=== PATIENT | female | born 1950 | race Caucasian/White ===

== ENCOUNTER → 2018-02-16 09:40 | Outpatient (CLI) | payer MEDICARE, OTHER, SELFPAY ==
--- NOTE | 2018-02-16 | DI.US.S_ITS ---
PROCEDURE: US ABDOMEN COMPLETE INDICATIONS: LIVER FUNCTION TESTS ABNORMAL TECHNIQUE: Real-time scanning was performed of the abdominal and retroperitoneal organs, with image documentation. COMPARISON: [facility], CT, CT KUB, 08/01/2017, 8:55. FINDINGS: Liver: Liver is normal in size and homogeneous in echotexture. Gallbladder: Gallbladder has been removed. Biliary ducts: Intrahepatic bile ducts are non-dilated. Extrahepatic bile duct caliber measures 15 mm. Normal is 6-7 mm or less in diameter, or 10 mm or less post-cholecystectomy. Pancreas: Visualized portions of the pancreas are sonographically normal. Spleen: Spleen is normal in size and homogeneous in echotexture. Kidneys: Kidneys are normal in size and echotexture. Right kidney measures 10.9 cm long; left kidney measures 9.7 cm long. No hydronephrosis or nephrolithiasis. No solid masses. Aorta: Visualized aorta is normal in caliber at less than 3 cm. Iliacs: Proximal common iliac arteries are normal in caliber at less than 2.5 cm. IVC: Intrahepatic inferior vena cava is patent. Miscellaneous: No free abdominal fluid. IMPRESSION: 1. Prominent common bile duct as above. This could be related to post cholecystectomy sequela and is unchanged compared to prior exam. Dictated by: Veronica Elder M.D. on 02/16/2018 at 13:55 Approved by: Veronica Elder M.D. on 02/16/2018 at 14:08
== END ==
PROVIDERS: PCP Family Medicine; Visit Provider Family Medicine
DX: R94.5 Abnormal results of liver function studies (principal); Z90.49 Acquired absence of other specified parts of digestive tract
CPT/HCPCS: 76700

== ENCOUNTER → 2018-10-12 10:57 | Outpatient (CLI) | payer OTHER, SELFPAY ==
--- NOTE | 2018-10-12 | DI.CT.S_ITS ---
PROCEDURE: CT ABDOMEN PELVIS W CON INDICATIONS: EARLY SATIETY, NIGHT SWEATS, LOSS OF WEIGHT TECHNIQUE: After the administration of oral and intravenous contrast, 5 mm thick sections acquired from the diaphragms to the symphysis. 5 mm thick coronal and sagittal reformats were performed. For radiation dose reduction, the following was used: automated exposure control, adjustment of mA and/or kV according to patient size. COMPARISON: [facility], US, US ABDOMEN COMPLETE, 02/16/2018, 10:07. [facility], CT, KIDNEY/ URETER/BLADDER, 07/21/2017, 18:36. FINDINGS: Image quality: Excellent. ABDOMEN: Lung bases: There is mild scarring and atelectasis in the lung bases. Heart size is normal. Solid organs: Evaluation of liver demonstrates no focal hepatic lesions. The gallbladder is surgically absent. There is intra-and extrahepatic biliary ductal dilatation, with the common bile duct measuring up to approximately 1.4 cm in diameter. This is similar in size compared to the prior study. No calcified obstructing stone or discrete mass visualized. There is mild dilatation of the pancreatic duct in the uncinate process measuring up to 5 mm adjacent to the ampulla. Within the body of the pancreas, the pancreatic duct measures up to 3 mm. The findings are also similar to the prior study given differences in technique. No discrete pancreatic mass identified. No peripancreatic fat stranding or fluid collections. Spleen is normal in size and enhancement. No adrenal nodules. Kidneys demonstrate no hydronephrosis. There is a small nonsegmental stone within the inferior pole the left kidney measuring up to 3 mm. Peritoneum and bowel: There is mild segmental wall thickening involving scattered small bowel loops most prominent in the ileum distally. There is a short segment intussusception in the jejunum within the left mid abdomen with associated mild distention of the preceding segment, measuring up to 3.8 cm. More proximal segments including the duodenum and stomach are normal in caliber. The appendix is normal in appearance. There is also mild segmental wall thickening involving a few colonic loops although this may reflect nondistention. No free fluid or air. Nodes and vessels: No retroperitoneal or mesenteric adenopathy. Aorta and inferior vena cava are normal in caliber. Miscellaneous: No ventral hernias. PELVIS: Genitourinary: The urinary bladder is nondistended. Miscellaneous: No inguinal hernias or adenopathy. Bones: No suspicious bony lesions. No vertebral body compression fractures. IMPRESSION: 1. Segmental small bowel wall thickening involving a few loops of small bowel compatible with a nonspecific enteritis, likely infectious or inflammatory. 2. Short segment intussusception of the jejunum in the left mid abdomen with mild associated preceding short segment small bowel distention. However, more proximal loops of bowel and stomach are normal in caliber. The findings suggest a likely mild partial obstruction. 3. Mild segmental colonic wall thickening also suggestive of a mild colitis versus artifact from nondistention. 4. Biliary and mild pancreatic duct dilatation redemonstrated, similar in appearance to the prior CT. The findings may represent sequelae of prior cholecystectomy or possible ampullary stenosis. Recommend correlation with laboratory values. No discrete mass lesion or calcified stone identified. 5. Small nonobstructing left renal stone. Dictated by: Maryk Gomez M.D. on 10/12/2018 at 14:18 Approved by: Marky Gomez M.D. on 10/12/2018 at 14:28
[2018-10-12 11:43] LABS: Blood Urea Nitrogen 18 mg/dL (7-17); Calcium 9.5 mg/dL (8.4-10.2); Carbon Dioxide 30 mmol/L (22-32); Chloride 107 mmol/L (98-107); Estimated Glomerular Filt Rate 54.8 mL/min (>60); Glucose 99 mg/dL (80-110); HEMOLYSIS < 15 (0-50); Potassium 4.4 mmol/L (3.4-5.1); Sodium 143 mmol/L (137-145)
== END ==
PROVIDERS: PCP Family Medicine; Visit Provider Family Medicine
DX: R61 Generalized hyperhidrosis (principal); R68.81 Early satiety; E11.9 Type 2 diabetes mellitus without complications; K83.8 Other specified diseases of biliary tract; K86.89 Other specified diseases of pancreas; N20.0 Calculus of kidney; R63.4 Abnormal weight loss; Z90.49 Acquired absence of other specified parts of digestive tract
CPT/HCPCS: 36415; 74177; 80048; Q9967

== ENCOUNTER 2018-10-12 18:45 | Emergency (ER) | payer OTHER, SELFPAY ==
[2018-10-12 18:50] VITALS: BP 117/65; PULSE 90; RESP 18; TEMP 36.7; O2SAT 98
--- NOTE | 2018-10-12 19:11 | ED.ABDPAIN ---
HPI - Abdominal Pain General Chief Complaint: Abdominal Pain Stated Complaint: abnormal CT scan, told to see ER Time Seen by Provider: 10/12/18 19:05 Source: patient, family () and old records reviewed Mode of arrival: ambulatory Limitations: no limitations History of Present Illness HPI narrative: This is a 68-year-old female who comes to the emergency department with complaint of abdominal pain. Patient states she has had symptoms for several months. She also gets nausea quite frankly but does not get vomiting. She also has constipation chronically but takes a stool softener which resolved that issue. She states suspects the constipation is secondary to her narcotic pain medication that she takes for chronic back pain. Patient states that she gets night sweats regularly almost every single night this along with slow weight loss prompted her physician order CT of her abdomen which was done today. She was contacted with the results and told to come to the emergency department. Patient has not had fevers otherwise. She has not had any other new major changes. She does have a history significant for cervical back surgery, a neurostimulator which she states has been taken out replaced several times, hysterectomy, cholecystectomy, dilation or clean out of her bile duct, breast implants, and a gastric bypass about 20 years ago. Patient denies any urinary symptoms. She states that she is in pain but it is her typical abdominal pain. Related Data Home Medications Medication Instructions Recorded Confirmed CHOLECALCIFEROL (VITAMIN D3) PO QDAY #0 06/22/16 08/01/18 (VITAMIN D) aspirin 81 mg PO QDAY #0 06/22/16 08/01/18 topiramate [Topamax] 100 mg PO BID #0 06/22/16 08/01/18 [OMEGA KRILL FISH OIL] PO BID #0 04/05/17 08/01/18 biotin 10,000 PO QPM #0 04/05/17 08/01/18 levothyroxine 0.137 mg PO QAM #0 04/05/17 08/01/18 morphine 1 tab PO TID #0 04/05/17 08/01/18 naloxegol [Movantik] 25 mg PO QDAY #0 04/05/17 08/01/18 oxycodone-acetaminophen [Endocet] 2 tab PO Q6HP PRN #0 04/05/17 08/01/18 [VIVISCAL EXTRA STR.] 1 tab PO QDAY #0 09/08/17 08/01/18 meclizine 25 mg PO TID #0 09/08/17 08/01/18 tizanidine 4 mg capsule 4 mg PO TID PRN 04/30/18 08/01/18 quinine 324 mg capsule 324 mg PO BEDTIME 10/02/18 Previous Rx's Medication Instructions Recorded conjugated estrogens 0.625 mg/gram See Label Instructions VAG 02/15/18 vaginal cream .COMPLEX #30 gram duloxetine 30 mg capsule,delayed 30 mg PO QDAY #90 cap 10/02/18 release duloxetine 60 mg capsule,delayed 60 mg PO QDAY #90 cap 10/02/18 release hydroxyzine pamoate 25 mg capsule 25 mg PO QID PRN 90 Days #90 cap 10/02/18 methylphenidate 10 mg tablet 10 mg PO DAILY #30 tab 10/02/18 methylphenidate ER 18 mg 18 mg PO QAM #30 tab 10/02/18 tablet,extended release 24 hr trazodone 50 mg tablet 100 mg PO HS #180 tab 10/02/18 Allergies Allergy/AdvReac Type Severity Reaction Status Date / Time meperidine [From DEMEROL] Allergy Severe BREATHING Verified 07/02/18 11:00 COMPLICATIONS Penicillins [PENICILLINS] Allergy Intermediate RASH Verified 07/02/18 11:00 Review of Systems Review of Systems ROS Unobtainable: All systems reviewed & are unremarkable except as noted in HPI and below Constitutional Denies chills, Denies fever(s), Denies lethargy, Reports night sweats, Denies weakness and Reports weight loss Cardiovascular Denies chest pain, Denies irregular heart rhythm, Denies lightheadedness, Denies palpitations, Denies dyspnea, Denies dyspnea on exertion and Denies orthopnea Respiratory Denies cough, Denies dyspnea, Denies dyspnea on exertion and Denies wheezing Gastrointestinal Gastrointestinal: Reports abdominal pain, Denies melena, Denies hematochezia, Denies change in bowel habits, Reports constipation, Denies diarrhea, Reports nausea and Denies vomiting Genitourinary Denies hematuria, Denies dysuria, Denies flank pain, Denies urinary incontinence and Denies urinary urgency Musculoskeletal Reports back pain (chronic, no new changes) Neurologic Denies weakness Endocrine Denies palpitations Allergic/Immunologic Denies wheezing [facility] Medical History Injury of common bile duct during operative procedure (Resolved) Migraines (Acute) Chronic back pain (Chronic) Hypothyroid (Chronic) Surgical History H/O abdominoplasty (Resolved) H/O bilateral breast implants (Resolved) History of Ykm-en-Y gastric bypass (Resolved) History of cholecystectomy (Resolved) History of tonsillectomy (Resolved) S/P SELMA-BSO (Resolved) Social History Smoking Status: Former smoker Exam Narrative Exam Narrative: GENERAL: Alert and oriented x three, pale, well-nourished, well-appearing female in mild distress. HEENT: Head normocephalic, atraumatic, EOMI, pupils reactive, face symmetric, moist mucous membranes NECK: Supple, full range of motion CARDIOVASCULAR: Regular rate and rhythm without murmurs, rubs or gallops. RESPIRATORY: Breath sounds equal bilaterally, no wheezes rales or rhonchi. ABDOMEN: Soft, mild generalized tenderness. Normoactive bowel sounds all 4 quadrants. No guarding or rebound, rigidity, no mass : No CVA tenderness EXTREMITIES: Normal range of motion, no clubbing or edema. Neurovascularly intact NEUROLOGICAL: Cranial nerves II through XII grossly intact. Moving all extremities SKIN: Warm, dry, no petechiae, no rashes or lesions. Initial Vital Signs Initial Vital Signs: Vital Signs Temperature 98.1 F 10/12/18 18:50 Pulse Rate 90 10/12/18 18:50 Respiratory Rate 18 10/12/18 18:50 Blood Pressure 117/65 10/12/18 18:50 Pulse Oximetry 98 10/12/18 18:50 Course Orders Ordered: ED Orders 10/12/18 19:35 Complete Blood Count AUTO DIFF Stat Comprehensive Metabolic Panel Stat Lipase Stat Procalcitonin Stat 10/12/18 20:38 XR abdomen 1V Stat Discontinued Medications Sodium Chloride (Normal Saline 0.9%) 1,000 mls @ 1,000 mls/hr IV BOLUS ONE Stop: 10/12/18 20:09 Last Infusion: 10/12/18 20:41 Dose: 0 mls/hr Admin: 10/12/18 19:43 Dose: 1,000 mls/hr Vital Signs - 8 hr 10/12/18 18:50 10/12/18 21:17 Temperature 98.1 F 98.4 F Pulse Rate 90 70 Respiratory Rate 18 14 Blood Pressure 117/65 Blood Pressure [Left Arm] 98/66 Pulse Oximetry 98 99 MDM - Abdominal Pain Lab Data Attestation: I reviewed the patient's lab results. Result diagrams: 10/12/18 19:35 10/12/18 19:35 Lab Results 10/12/18 10/12/18 10/12/18 Range/Units 19:35 19:35 19:35 WBC 5.6 (4.5-11.0) X10^3/uL RBC 3.51 L (4.0-5.2) X10^6/uL Hgb 12.0 (12.0-16.0) g/dL Hct 36.3 (36-46) % MCV 103.4 H (80-100) fL MCH 34.3 H (26-34) PG MCHC 33.1 (30-36) % RDW 14.1 (11.6-14.8) % Plt Count 224 (150-400) X10^3/uL Neut % (Auto) 58.8 (50-75) % Lymph % (Auto) 26.0 (25-40) % [place] % (Auto) 11.6 (3-14) % Eos % (Auto) 1.6 L (2-4) % Baso % (Auto) 2.0 (0-2) % Neut # (Auto) 3300 (8698-2500) /uL Lymph # (Auto) 1400 (1746-3449) /uL [place] # (Auto) 600 (0-900) /uL Eos # (Auto) 100 (0-450) /uL Baso # (Auto) 100 (0-100) /uL Sodium 141 (137-145) mmol/L Potassium 3.6 (3.4-5.1) mmol/L Chloride 109 H (98-107) mmol/L Carbon Dioxide 24 (22-32) mmol/L BUN 16 (7-17) mg/dL Creatinine 1.00 (0.52-1.04) mg/dL Estimated GFR 54.8 L (>60) mL/min BUN/Creatinine Ratio 16.0 (6-22) Glucose 84 (80-110) mg/dL Calcium 9.1 (8.4-10.2) mg/dL Total Bilirubin 0.2 (0.2-1.3) mg/dL AST 24 (14-36) IU/L ALT 41 (9-52) IU/L Alkaline Phosphatase 81 (38-126) U/L Total Protein 5.9 L (6.3-8.2) g/dL Albumin 3.6 (3.5-5.0) g/dL Globulin 2.3 (1.7-4.1) g/dL Albumin/Globulin Ratio 1.6 (1.0-2.8) Lipase 141 (23-300) U/L Procalcitonin < 0.05 (<0.5) ng/mL Imaging Data CT scan - abdomen: Radiologist's impression: [address] [id number] [address] Scan Report Signed Patient: Ying Quintana EMR#: [id number] : 8Acct:[id number] Age/Sex: 68 / FDate of Service: 10/12/18 Loc: CT Accession Number: [id number] Procedure: CT abdomen pelvis w con Ordering Provider: Shaina Boyd D.O. PROCEDURE: CT ABDOMEN PELVIS W CON INDICATIONS: EARLY SATIETY, NIGHT SWEATS, LOSS OF WEIGHT TECHNIQUE: After the administration of oral and intravenous contrast, 5 mm thick sections acquired from the diaphragms to the symphysis. 5 mm thick coronal and sagittal reformats were performed. For radiation dose reduction, the following was used: automated exposure control, adjustment of mA and/or kV according to patient size. COMPARISON: [facility], US, US ABDOMEN COMPLETE, 02/16/2018, 10:07. [facility], CT, KIDNEY/ URETER/BLADDER, 07/21/2017, 18:36. FINDINGS: Image quality: Excellent. ABDOMEN: Lung bases: There is mild scarring and atelectasis in the lung bases. Heart size is normal. Solid organs: Evaluation of liver demonstrates no focal hepatic lesions. The gallbladder is surgically absent. There is intra-and extrahepatic biliary ductal dilatation, with the common bile duct measuring up to approximately 1.4 cm in diameter. This is similar in size compared to the prior study. No calcified obstructing stone or discrete mass visualized. There is mild dilatation of the pancreatic duct in the uncinate process measuring up to 5 mm adjacent to the ampulla. Within the body of the pancreas, the pancreatic duct measures up to 3 mm. The findings are also similar to the prior study given differences in technique. No discrete pancreatic mass identified. No peripancreatic fat stranding or fluid collections. Spleen is normal in size and enhancement. No adrenal nodules. Kidneys demonstrate no hydronephrosis. There is a small nonsegmental stone within the inferior pole the left kidney measuring up to 3 mm. Peritoneum and bowel: There is mild segmental wall thickening involving scattered small bowel loops most prominent in the ileum distally. There is a short segment intussusception in the jejunum within the left mid abdomen with associated mild distention of the preceding segment, measuring up to 3.8 cm. More proximal segments including the duodenum and stomach are normal in caliber. The appendix is normal in appearance. There is also mild segmental wall thickening involving a few colonic loops although this may reflect nondistention. No free fluid or air. Nodes and vessels: No retroperitoneal or mesenteric adenopathy. Aorta and inferior vena cava are normal in caliber. Miscellaneous: No ventral hernias. PELVIS: Genitourinary: The urinary bladder is nondistended. Miscellaneous: No inguinal hernias or adenopathy. Bones: No suspicious bony lesions. No vertebral body compression fractures. IMPRESSION: 1. Segmental small bowel wall thickening involving a few loops of small bowel compatible with a nonspecific enteritis, likely infectious or inflammatory. 2. Short segment intussusception of the jejunum in the left mid abdomen with mild associated preceding short segment small bowel distention. However, more proximal loops of bowel and stomach are normal in caliber. The findings suggest a likely mild partial obstruction. 3. Mild segmental colonic wall thickening also suggestive of a mild colitis versus artifact from nondistention. 4. Biliary and mild pancreatic duct dilatation redemonstrated, similar in appearance to the prior CT. The findings may represent sequelae of prior cholecystectomy or possible ampullary stenosis. Recommend correlation with laboratory values. No discrete mass lesion or calcified stone identified. 5. Small nonobstructing left renal stone. Dictated by: Marky Gomez M.D. on 10/12/2018 at 14:18 Approved by: Marky Gomez M.D. on 10/12/2018 at 14:[address] [facility] Narrative Medical decision making narrative: Patient had a CT of her abdomen and pelvis performed today which shows a short segment of intussusception as well as changes to the bowel wall that would be consistent with a colitis and/or enteritis, she also has some dilation of her common bile duct although she states that she did have surgery in the past for this. BMP did not show any major abnormalities, CBC, CMP, lipase were ordered and patient was discussed with Dr. Jordan who was on-call for surgery. Case was discussed and CT images were reviewed by Dr. Jordan here in the department. A flat plate was ordered as per his request to evaluate for obstruction. This was reviewed by Dr. Jordan the patient was evaluated. Patient elects not to have any surgical intervention or admission to hospital. She is not having any obstructive symptoms she has not had any vomiting, she is having regular bowel movements and although chronically constipated when she takes a stool softener has a bowel movement. She continues to have abdominal pain but has not had a rapid increase. She was very clear that she has a interview on Monday that she does not wish to miss and does not want to have surgery this weekend. She will follow up with Dr. Jordan this coming week. She has is phone number and was also given to us. We also discussed reasons to return. Discharge Plan Departure Patient Disposition: Home Clinical Impression: Intussusception Discharge Date/Time: 10/12/18 21:25 Interventions: ED Discharge Assessment Last Done: 10/12/18 21:23 Instructions: DI for Intussusception Activity Restrictions/Additional Instructions: Call Monday to set up appointment this week with Dr. Jordan office regarding your CT findings and for further evaluation and treatment. Continue your home medications as prescribed. Return to the ER for fevers greater than 100.4 F, persistent vomiting, if you are unable to have a bowel movement and/or are not passing flatus/gas, rapidly worsening abdominal pain or other new or concerning symptoms. Prescriptions: No Action quinine sulfate 324 mg capsule 324 mg PO BEDTIME RF: 0 methylphenidate HCl [Concerta] 18 mg tablet extended release 24hr 18 mg PO QAM Qty: 30 RF: 0 methylphenidate HCl 10 mg tablet 10 mg PO DAILY Qty: 30 RF: 0 duloxetine [Cymbalta] 60 mg capsule,delayed release(DR/EC) 60 mg PO QDAY Qty: 90 RF: 3 duloxetine [Cymbalta] 30 mg capsule,delayed release(DR/EC) 30 mg PO QDAY Qty: 90 RF: 3 hydroxyzine pamoate 25 mg capsule 25 mg PO QID PRN (Reason: anxiety) 90 Days Qty: 90 RF: 3 trazodone 50 mg tablet 100 mg PO HS Qty: 180 RF: 3 tizanidine 4 mg capsule 4 mg PO TID PRN (Reason: muscle spasm) RF: 0 topiramate [Topamax] 50 MG tablet 100 mg PO BID Qty: 0 RF: 0 aspirin 81 MG tablet,delayed release (DR/EC) 81 mg PO QDAY Qty: 0 RF: 0 CHOLECALCIFEROL (VITAMIN D3) (VITAMIN D) PO QDAY Qty: 0 RF: 0 levothyroxine 137 MCG tablet 0.137 mg PO QAM Qty: 0 RF: 0 morphine 30 MG tablet extended release 1 tab PO TID Qty: 0 RF: 0 biotin 1 mg Capsule 10,000 PO QPM Qty: 0 RF: 0 [OMEGA KRILL FISH OIL] PO BID Qty: 0 RF: 0 oxycodone-acetaminophen [Endocet] 10 MG/325 MG tablet 2 tab PO Q6HP PRNQty: 0 RF: 0 naloxegol [Movantik] 25 MG tablet 25 mg PO QDAY Qty: 0 RF: 0 meclizine 25 MG tablet 25 mg PO TID Qty: 0 RF: 0 [VIVISCAL EXTRA STR.] 1 tab PO QDAY Qty: 0 RF: 0 conjugated estrogens [Premarin] 0.625 mg/gram cream See Label Instructions VAG .COMPLEX Qty: 30 RF: 1
--- NOTE | 2018-10-12 19:35 | ED_ITS ---
HPI - Abdominal Pain General Chief Complaint: Abdominal Pain Stated Complaint: abnormal CT scan, told to see ER Time Seen by Provider: 10/12/18 19:05 Source: patient, family () and old records reviewed Mode of arrival: ambulatory Limitations: no limitations History of Present Illness HPI narrative: This is a 68-year-old female who comes to the emergency department with complaint of abdominal pain. Patient states she has had symptoms for several months. She also gets nausea quite frankly but does not get vomiting. She also has constipation chronically but takes a stool softener which resolved that issue. She states suspects the constipation is secondary to her narcotic pain medication that she takes for chronic back pain. Patient states that she gets night sweats regularly almost every single night this along with slow weight loss prompted her physician order CT of her abdomen which was done today. She was contacted with the results and told to come to the emergency department. Patient has not had fevers otherwise. She has not had any other new major changes. She does have a history significant for cervical back surgery, a neurostimulator which she states has been taken out replaced several times, hysterectomy, cholecystectomy, dilation or clean out of her bile duct, breast implants, and a gastric bypass about 20 years ago. Patient denies any urinary symptoms. She states that she is in pain but it is her typical abdominal pain. Related Data Home Medications Medication Instructions Recorded Confirmed CHOLECALCIFEROL (VITAMIN D3) PO QDAY #0 06/22/16 08/01/18 (VITAMIN D) aspirin 81 mg PO QDAY #0 06/22/16 08/01/18 topiramate [Topamax] 100 mg PO BID #0 06/22/16 08/01/18 [OMEGA KRILL FISH OIL] PO BID #0 04/05/17 08/01/18 biotin 10,000 PO QPM #0 04/05/17 08/01/18 levothyroxine 0.137 mg PO QAM #0 04/05/17 08/01/18 morphine 1 tab PO TID #0 04/05/17 08/01/18 naloxegol [Movantik] 25 mg PO QDAY #0 04/05/17 08/01/18 oxycodone-acetaminophen [Endocet] 2 tab PO Q6HP PRN #0 04/05/17 08/01/18 [VIVISCAL EXTRA STR.] 1 tab PO QDAY #0 09/08/17 08/01/18 meclizine 25 mg PO TID #0 09/08/17 08/01/18 tizanidine 4 mg capsule 4 mg PO TID PRN 04/30/18 08/01/18 quinine 324 mg capsule 324 mg PO BEDTIME 10/02/18 Previous Rx's Medication Instructions Recorded conjugated estrogens 0.625 mg/gram See Label Instructions VAG 02/15/18 vaginal cream .COMPLEX #30 gram duloxetine 30 mg capsule,delayed 30 mg PO QDAY #90 cap 10/02/18 release duloxetine 60 mg capsule,delayed 60 mg PO QDAY #90 cap 10/02/18 release hydroxyzine pamoate 25 mg capsule 25 mg PO QID PRN 90 Days #90 cap 10/02/18 methylphenidate 10 mg tablet 10 mg PO DAILY #30 tab 10/02/18 methylphenidate ER 18 mg 18 mg PO QAM #30 tab 10/02/18 tablet,extended release 24 hr trazodone 50 mg tablet 100 mg PO HS #180 tab 10/02/18 Allergies Allergy/AdvReac Type Severity Reaction Status Date / Time meperidine [From DEMEROL] Allergy Severe BREATHING Verified 07/02/18 11:00 COMPLICATIONS Penicillins [PENICILLINS] Allergy Intermediate RASH Verified 07/02/18 11:00 Review of Systems Review of Systems ROS Unobtainable: All systems reviewed & are unremarkable except as noted in HPI and below Constitutional Denies chills, Denies fever(s), Denies lethargy, Reports night sweats, Denies weakness and Reports weight loss Cardiovascular Denies chest pain, Denies irregular heart rhythm, Denies lightheadedness, Denies palpitations, Denies dyspnea, Denies dyspnea on exertion and Denies orthopnea Respiratory Denies cough, Denies dyspnea, Denies dyspnea on exertion and Denies wheezing Gastrointestinal Gastrointestinal: Reports abdominal pain, Denies melena, Denies hematochezia, Denies change in bowel habits, Reports constipation, Denies diarrhea, Reports nausea and Denies vomiting Genitourinary Denies hematuria, Denies dysuria, Denies flank pain, Denies urinary incontinence and Denies urinary urgency Musculoskeletal Reports back pain (chronic, no new changes) Neurologic Denies weakness Endocrine Denies palpitations Allergic/Immunologic Denies wheezing [facility] Medical History Injury of common bile duct during operative procedure (Resolved) Migraines (Acute) Chronic back pain (Chronic) Hypothyroid (Chronic) Surgical History H/O abdominoplasty (Resolved) H/O bilateral breast implants (Resolved) History of Kym-en-Y gastric bypass (Resolved) History of cholecystectomy (Resolved) History of tonsillectomy (Resolved) S/P SELMA-BSO (Resolved) Social History Smoking Status: Former smoker Exam Narrative Exam Narrative: GENERAL: Alert and oriented x three, pale, well-nourished, well- appearing female in mild distress. HEENT: Head normocephalic, atraumatic, EOMI, pupils reactive, face symmetric, moist mucous membranes NECK: Supple, full range of motion CARDIOVASCULAR: Regular rate and rhythm without murmurs, rubs or gallops. RESPIRATORY: Breath sounds equal bilaterally, no wheezes rales or rhonchi. ABDOMEN: Soft, mild generalized tenderness. Normoactive bowel sounds all 4 quadrants. No guarding or rebound, rigidity, no mass : No CVA tenderness EXTREMITIES: Normal range of motion, no clubbing or edema. Neurovascularly intact NEUROLOGICAL: Cranial nerves II through XII grossly intact. Moving all extremities SKIN: Warm, dry, no petechiae, no rashes or lesions. Initial Vital Signs Initial Vital Signs: Vital Signs Temperature 98.1 F 10/12/18 18:50 Pulse Rate 90 10/12/18 18:50 Respiratory Rate 18 10/12/18 18:50 Blood Pressure 117/65 10/12/18 18:50 Pulse Oximetry 98 10/12/18 18:50 Course Orders Ordered: ED Orders 10/12/18 19:35 Complete Blood Count AUTO DIFF Stat Comprehensive Metabolic Panel Stat Lipase Stat Procalcitonin Stat 10/12/18 20:38 XR abdomen 1V Stat Discontinued Medications Sodium Chloride (Normal Saline 0.9%) 1,000 mls @ 1,000 mls/hr IV BOLUS ONE Stop: 10/12/18 20:09 Last Infusion: 10/12/18 20:41 Dose: 0 mls/hr Admin: 10/12/18 19:43 Dose: 1,000 mls/hr Vital Signs - 8 hr 10/12/18 18:50 10/12/18 21:17 Temperature 98.1 F 98.4 F Pulse Rate 90 70 Respiratory Rate 18 14 Blood Pressure 117/65 Blood Pressure [Left Arm] 98/66 Pulse Oximetry 98 99 MDM - Abdominal Pain Lab Data Attestation: I reviewed the patient's lab results. Result diagrams: 10/12/18 19:35 10/12/18 19:35 Lab Results 10/12/18 10/12/18 10/12/18 Range/Units 19:35 19:35 19:35 WBC 5.6 (4.5-11.0) X10^3/uL RBC 3.51 L (4.0-5.2) X10^6/uL Hgb 12.0 (12.0-16.0) g/dL Hct 36.3 (36-46) % MCV 103.4 H (80-100) fL MCH 34.3 H (26-34) PG MCHC 33.1 (30-36) % RDW 14.1 (11.6-14.8) % Plt Count 224 (150-400) X10^3/uL Neut % (Auto) 58.8 (50-75) % Lymph % (Auto) 26.0 (25-40) % [place] % (Auto) 11.6 (3-14) % Eos % (Auto) 1.6 L (2-4) % Baso % (Auto) 2.0 (0-2) % Neut # (Auto) 3300 (4672-4247) /uL Lymph # (Auto) 1400 (9616-8371) /uL [place] # (Auto) 600 (0-900) /uL Eos # (Auto) 100 (0-450) /uL Baso # (Auto) 100 (0-100) /uL Sodium 141 (137-145) mmol/L Potassium 3.6 (3.4-5.1) mmol/L Chloride 109 H (98-107) mmol/L Carbon Dioxide 24 (22-32) mmol/L BUN 16 (7-17) mg/dL Creatinine 1.00 (0.52-1.04) mg/dL Estimated GFR 54.8 L (>60) mL/min BUN/Creatinine Ratio 16.0 (6-22) Glucose 84 (80-110) mg/dL Calcium 9.1 (8.4-10.2) mg/dL Total Bilirubin 0.2 (0.2-1.3) mg/dL AST 24 (14-36) IU/L ALT 41 (9-52) IU/L Alkaline Phosphatase 81 (38-126) U/L Total Protein 5.9 L (6.3-8.2) g/dL Albumin 3.6 (3.5-5.0) g/dL Globulin 2.3 (1.7-4.1) g/dL Albumin/Globulin Ratio 1.6 (1.0-2.8) Lipase 141 (23-300) U/L Procalcitonin < 0.05 (<0.5) ng/mL Imaging Data CT scan - abdomen: Radiologist's impression: [address] [address] [address] Scan Report Signed Patient: Ying Quintana EMR#: [id number] : 8Acct:[id number] Age/Sex: 68 / FDate of Service: 10/12/18 Loc: CT Accession Number: [id number] Procedure: CT abdomen pelvis w con Ordering Provider: Shaina Boyd D.O. PROCEDURE: CT ABDOMEN PELVIS W CON INDICATIONS: EARLY SATIETY, NIGHT SWEATS, LOSS OF WEIGHT TECHNIQUE: After the administration of oral and intravenous contrast, 5 mm thick sections acquired from the diaphragms to the symphysis. 5 mm thick coronal and sagittal reformats were performed. For radiation dose reduction, the following was used: automated exposure control, adjustment of mA and/or kV according to patient size. COMPARISON: [facility], US, US ABDOMEN COMPLETE, 02/16/2018, 10:07. [facility], CT, KIDNEY/ URETER/BLADDER, 07/21/2017, 18:36. FINDINGS: Image quality: Excellent. ABDOMEN: Lung bases: There is mild scarring and atelectasis in the lung bases. Heart size is normal. Solid organs: Evaluation of liver demonstrates no focal hepatic lesions. The gallbladder is surgically absent. There is intra-and extrahepatic biliary ductal dilatation , with the common bile duct measuring up to approximately 1.4 cm in diameter. This is similar in size compared to the prior study. No calcified obstructing stone or discrete mass visualized. There is mild dilatation of the pancreatic duct in the uncinate process measuring up to 5 mm adjacent to the ampulla. Within the body of the pancreas, the pancreatic duct measures up to 3 mm. The findings are also similar to the prior study given differences in technique. No discrete pancreatic mass identified. No peripancreatic fat stranding or fluid collections. Spleen is normal in size and enhancement. No adrenal nodules. Kidneys demonstrate no hydronephrosis. There is a small nonsegmental stone within the inferior pole the left kidney measuring up to 3 mm. Peritoneum and bowel: There is mild segmental wall thickening involving scattered small bowel loops most prominent in the ileum distally. There is a short segment intussusception in the jejunum within the left mid abdomen with associated mild distention of the preceding segment, measuring up to 3.8 cm. More proximal segments including the duodenum and stomach are normal in caliber. The appendix is normal in appearance. There is also mild segmental wall thickening involving a few colonic loops although this may reflect nondistention. No free fluid or air. Nodes and vessels: No retroperitoneal or mesenteric adenopathy. Aorta and inferior vena cava are normal in caliber. Miscellaneous: No ventral hernias. PELVIS: Genitourinary: The urinary bladder is nondistended. Miscellaneous: No inguinal hernias or adenopathy. Bones: No suspicious bony lesions. No vertebral body compression fractures. IMPRESSION: 1. Segmental small bowel wall thickening involving a few loops of small bowel compatible with a nonspecific enteritis, likely infectious or inflammatory. 2. Short segment intussusception of the jejunum in the left mid abdomen with mild associated preceding short segment small bowel distention. However, more proximal loops of bowel and stomach are normal in caliber. The findings suggest a likely mild partial obstruction. 3. Mild segmental colonic wall thickening also suggestive of a mild colitis versus artifact from nondistention. 4. Biliary and mild pancreatic duct dilatation redemonstrated, similar in appearance to the prior CT. The findings may represent sequelae of prior cholecystectomy or possible ampullary stenosis. Recommend correlation with laboratory values. No discrete mass lesion or calcified stone identified. 5. Small nonobstructing left renal stone. Dictated by: Marky Gomez M.D. on 10/12/2018 at 14:18 Approved by: Marky Gomez M.D. on 10/12/2018 at 14:28 [facility] Narrative Medical decision making narrative: Patient had a CT of her abdomen and pelvis performed today which shows a short segment of intussusception as well as changes to the bowel wall that would be consistent with a colitis and/or enteritis, she also has some dilation of her common bile duct although she states that she did have surgery in the past for this. BMP did not show any major abnormalities, CBC, CMP, lipase were ordered and patient was discussed with Dr. Jordan who was on-call for surgery. Case was discussed and CT images were reviewed by Dr. Jordan here in the department. A flat plate was ordered as per his request to evaluate for obstruction. This was reviewed by Dr. Jordan the patient was evaluated. Patient elects not to have any surgical intervention or admission to hospital. She is not having any obstructive symptoms she has not had any vomiting, she is having regular bowel movements and although chronically constipated when she takes a stool softener has a bowel movement. She continues to have abdominal pain but has not had a rapid increase. She was very clear that she has a interview on Monday that she does not wish to miss and does not want to have surgery this weekend. She will follow up with Dr. Jordan this coming week. She has is phone number and was also given to us. We also discussed reasons to return. Discharge Plan Departure Patient Disposition: Home Clinical Impression: Intussusception Discharge Date/Time: 10/12/18 21:25 Interventions: ED Discharge Assessment Last Done: 10/12/18 21:23 Instructions: DI for Intussusception Activity Restrictions/Additional Instructions: Call Monday to set up appointment this week with Dr. Jordan office regarding your CT findings and for further evaluation and treatment. Continue your home medications as prescribed. Return to the ER for fevers greater than 100.4 F, persistent vomiting, if you are unable to have a bowel movement and/or are not passing flatus/gas, rapidly worsening abdominal pain or other new or concerning symptoms. Prescriptions: No Action quinine sulfate 324 mg capsule 324 mg PO BEDTIME RF: 0 methylphenidate HCl [Concerta] 18 mg tablet extended release 24hr 18 mg PO QAM Qty: 30 RF: 0 methylphenidate HCl 10 mg tablet 10 mg PO DAILY Qty: 30 RF: 0 duloxetine [Cymbalta] 60 mg capsule,delayed release(DR/EC) 60 mg PO QDAY Qty: 90 RF: 3 duloxetine [Cymbalta] 30 mg capsule,delayed release(DR/EC) 30 mg PO QDAY Qty: 90 RF: 3 hydroxyzine pamoate 25 mg capsule 25 mg PO QID PRN (Reason: anxiety) 90 Days Qty: 90 RF: 3 trazodone 50 mg tablet 100 mg PO HS Qty: 180 RF: 3 tizanidine 4 mg capsule 4 mg PO TID PRN (Reason: muscle spasm) RF: 0 topiramate [Topamax] 50 MG tablet 100 mg PO BID Qty: 0 RF: 0 aspirin 81 MG tablet,delayed release (DR/EC) 81 mg PO QDAY Qty: 0 RF: 0 CHOLECALCIFEROL (VITAMIN D3) (VITAMIN D) PO QDAY Qty: 0 RF: 0 levothyroxine 137 MCG tablet 0.137 mg PO QAM Qty: 0 RF: 0 morphine 30 MG tablet extended release 1 tab PO TID Qty: 0 RF: 0 biotin 1 mg Capsule 10,000 PO QPM Qty: 0 RF: 0 [OMEGA KRILL FISH OIL] PO BID Qty: 0 RF: 0 oxycodone-acetaminophen [Endocet] 10 MG/325 MG tablet 2 tab PO Q6HP PRNQty: 0 RF: 0 naloxegol [Movantik] 25 MG tablet 25 mg PO QDAY Qty: 0 RF: 0 meclizine 25 MG tablet 25 mg PO TID Qty: 0 RF: 0 [VIVISCAL EXTRA STR.] 1 tab PO QDAY Qty: 0 RF: 0 conjugated estrogens [Premarin] 0.625 mg/gram cream See Label Instructions VAG .COMPLEX Qty: 30 RF: 1
[2018-10-12] MEDS: SODIUM CHLORIDE 0.9% 1,000 ML 1000 ML IV (19:43)
[2018-10-12 19:52] LABS: Add Manual Diff / Slide Review NO; Basophils Absolute Auto 100 /uL (0-100); Eosinophils Absolute Auto 100 /uL (0-450); Eosinophils Percent Auto 1.6 % (2-4); Hematocrit 36.3 % (36-46); Lymphocytes Absolute Auto 1400 /uL (1100-4500); Mean Corpuscular HGB Conc 33.1 % (30-36); Mean Corpuscular Hemoglobin 34.3 PG (26-34); Mean Corpuscular Volume 103.4 fL (80-100); Monocytes Absolute Auto 600 /uL (0-900); Monocytes Percent Auto 11.6 % (3-14); Neutrophils Absolute Auto 3300 /uL (1500-7000); Neutrophils Percent Auto 58.8 % (50-75); Platelet Count 224 X10^3/uL (150-400); Red Blood Cell Count 3.51 X10^6/uL (4.0-5.2); Red Cell Distribution Width 14.1 % (11.6-14.8); White Blood Cell Count 5.6 X10^3/uL (4.5-11.0)
[2018-10-12 19:55] LABS: Alanine Aminotransferase 41 IU/L (9-52); Albumin 3.6 g/dL (3.5-5.0); Albumin Globulin Ratio 1.6 (1.0-2.8); Alkaline Phosphatase 81 U/L (38-126); Aspartate Aminotransferase 24 IU/L (14-36); Bilirubin Total 0.2 mg/dL (0.2-1.3); Blood Urea Nitrogen 16 mg/dL (7-17); Calcium 9.1 mg/dL (8.4-10.2); Carbon Dioxide 24 mmol/L (22-32); Chloride 109 mmol/L (98-107); Estimated Glomerular Filt Rate 54.8 mL/min (>60); Globulin 2.3 g/dL (1.7-4.1); Glucose 84 mg/dL (80-110); HEMOLYSIS < 15 (0-50); Lipase 141 U/L (23-300); Potassium 3.6 mmol/L (3.4-5.1); Sodium 141 mmol/L (137-145); Total Protein 5.9 g/dL (6.3-8.2)
[2018-10-12 20:14] LABS: Procalcitonin < 0.05 ng/mL (<0.5)
--- NOTE | 2018-10-12 20:30 | PC.NURSE ---
Dr. Jordan at bedside.
--- NOTE | 2018-10-12 20:38 | DI.RAD.S_ITS ---
PROCEDURE: XR ABDOMEN 1V INDICATIONS: flat plate to eval contrast after CT TECHNIQUE: One view of the abdomen acquired. COMPARISON: [facility], CT, CT ABDOMEN PELVIS W CON, 10/12/2018, 12:13. FINDINGS: Surgical changes and devices: Cholecystectomy clips are noted. Bowel: Bowel gas pattern is normal. Oral contrast is within the proximal colon. Soft tissues: No suspicious abdominal calcifications. Visualized solid organ contours appear normal in size. Excreted IV contrast within the bladder. Bones: No suspicious bony lesions. IMPRESSION: Oral contrast in the proximal colon. Dictated by: Abrahan Polanco M.D. on 10/12/2018 at 21:48 Approved by: Abrahan Polanco M.D. on 10/12/2018 at 21:50
[2018-10-12 21:17] VITALS: BP 98/66; PULSE 70; RESP 14; TEMP 36.9; O2SAT 99
--- NOTE | 2018-10-12 21:24 | PM.CN ---
History of Present Illness Date Patient Seen: 10/12/18 Time Patient Seen: 20:51 Chief complaint: abnormal CT scan, told to see ER Reason for consult: Intussusception Requesting provider: Gracie Choe Narrative: The patient is a woman who for the last 6 months of been having nausea and gradual weight loss. She does not vomit but the nausea keeps her from eating. She has chronic pain in her abdomen and has for years. She has had multiple abdominal procedures which I will detail later. The pain can be in the left lower quadrant but often it is across the mid abdomen. It seems to come and go. She had a recent CT to evaluate this and was told to go the emergency room on the result was obtained. She came here. She apparently has an appointment to see me in October. That appointment was about the same issues. She has been told for years that her pain is from scarring from her prior operations. She does have chronic constipation and often asked to take a stool softener to have a bowel movement because of chronic use of narcotics for her chronic neck and back pain. She has no blood in her stool. She had a colonoscopy 2 years ago. She has had polyps in the past. The operations on her abdomen include a gastric bypass Kym-en-Y type years ago. She had a cholecystectomy complicated by an infection that led to a problem with her common duct. She had an open exploration to treat that pathology. It is not clear what was done. The patient had a hysterectomy and bilateral salpingo-oophorectomy for uterine cancer in her 20s. She took a pill afterward but had no radiation. Patient lost 150 lb on with her bypass procedure and subsequently had an abdominoplasty and breast implants. [facility] Medical History Injury of common bile duct during operative procedure (Resolved) Migraines (Acute) Chronic back pain (Chronic) Hypothyroid (Chronic) Surgical History H/O abdominoplasty (Resolved) H/O bilateral breast implants (Resolved) History of Kym-en-Y gastric bypass (Resolved) History of cholecystectomy (Resolved) History of tonsillectomy (Resolved) S/P SELMA-BSO (Resolved) Social History Smoking Status: Former smoker Meds Home Medications Medication Instructions Recorded Confirmed Type CHOLECALCIFEROL (VITAMIN D3) PO QDAY #0 06/22/16 08/01/18 History (VITAMIN D) aspirin 81 mg PO QDAY #0 06/22/16 08/01/18 History topiramate [Topamax] 100 mg PO BID #0 06/22/16 08/01/18 History [OMEGA KRILL FISH OIL] PO BID #0 04/05/17 08/01/18 History biotin 10,000 PO QPM #0 04/05/17 08/01/18 History levothyroxine 0.137 mg PO QAM #0 04/05/17 08/01/18 History morphine 1 tab PO TID #0 04/05/17 08/01/18 History naloxegol [Movantik] 25 mg PO QDAY #0 04/05/17 08/01/18 History oxycodone-acetaminophen [Endocet] 2 tab PO Q6HP PRN #0 04/05/17 08/01/18 History [VIVISCAL EXTRA STR.] 1 tab PO QDAY #0 09/08/17 08/01/18 History meclizine 25 mg PO TID #0 09/08/17 08/01/18 History conjugated estrogens 0.625 mg/gram See Label Instructions VAG 02/15/18 08/01/18 Rx vaginal cream .COMPLEX #30 gram tizanidine 4 mg capsule 4 mg PO TID PRN 04/30/18 08/01/18 History duloxetine 30 mg capsule,delayed 30 mg PO QDAY #90 cap 10/02/18 Rx release duloxetine 60 mg capsule,delayed 60 mg PO QDAY #90 cap 10/02/18 Rx release hydroxyzine pamoate 25 mg capsule 25 mg PO QID PRN 90 Days #90 cap 10/02/18 Rx methylphenidate 10 mg tablet 10 mg PO DAILY #30 tab 10/02/18 Rx methylphenidate ER 18 mg 18 mg PO QAM #30 tab 10/02/18 Rx tablet,extended release 24 hr quinine 324 mg capsule 324 mg PO BEDTIME 10/02/18 History trazodone 50 mg tablet 100 mg PO HS #180 tab 10/02/18 Rx Allergies Allergy/AdvReac Type Severity Reaction Status Date / Time meperidine [From DEMEROL] Allergy Severe BREATHING Verified 07/02/18 11:00 COMPLICATIONS Penicillins [PENICILLINS] Allergy Intermediate RASH Verified 07/02/18 11:00 Review of Systems Review of Systems Patient denies double vision. She recently made an appointment to have cataracts surgically treated. No earaches or sore throat. No trouble swallowing. No cough cold or asthma. No chest pain. No heart problems in the past. No hematemesis. No black or bloody bowel movements. She has had kidney stones treated with ultrasound in the past. Presently not having any symptoms and no problems urinating. She does get urinary tract infections. No seizures or blackouts. No unusual bruising or bleeding reported. Exam Vital Signs (past 8 hours): - 10/12/18 18:50 10/12/18 21:17 Temperature 98.1 F 98.4 F Pulse Rate 90 70 Respiratory Rate 18 14 Blood Pressure 117/65 Blood Pressure [Left Arm] 98/66 Pulse Oximetry 98 99 Oxygen Delivery Method Room Air Narrative Exam Narrative: Co operative pleasant woman in no apparent distress. Eyes are nonicteric. Pupils are rather large but equal bilaterally. Conjunctivae are pink. Ears without lesion. She does have earrings. Nasal septum is midline. No polyps seen. Oral mucosa pink and moist no open lesions. No splits in her lips. I do not feel any nodes in her neck supraclavicular areas. Her lungs are clear to auscultation without rales or rhonchi any could percussion. No bruit in the neck. Heart regular rate and rhythm without murmur gallop. Abdomen is scaphoid soft nontender. She has the tense S of an abdominal wall post abdominoplasty. Tenderness over mass is. Her abdominal wall as a patch work of scars. The patient is alert and oriented x3. Speech rate and content are appropriate. Affect is a little flat but otherwise unremarkable. Objective ECG Impression: Reviewed her report of her CT and the films. No evidence of an obstruction. There may be an intussusception of the jejunum. Repeat x-ray post CT scan revealed all of the contrast had gone through the small bowel into the colon consistent with a nonobstructing process. Patient has a incidentally seen kidney stone. Labs Result Diagrams: 10/12/18 19:35 10/12/18 19:35 Labs: Laboratory Results - last 24 hr 10/12/18 10/12/18 10/12/18 19:35 19:35 19:35 WBC 5.6 RBC 3.51 L Hgb 12.0 Hct 36.3 MCV 103.4 H MCH 34.3 H MCHC 33.1 RDW 14.1 Plt Count 224 Neut % (Auto) 58.8 Lymph % (Auto) 26.0 [place] % (Auto) 11.6 Eos % (Auto) 1.6 L Baso % (Auto) 2.0 Neut # (Auto) 3300 Lymph # (Auto) 1400 [place] # (Auto) 600 Eos # (Auto) 100 Baso # (Auto) 100 Sodium 141 Potassium 3.6 Chloride 109 H Carbon Dioxide 24 BUN 16 Creatinine 1.00 Estimated GFR 54.8 L BUN/Creatinine Ratio 16.0 Glucose 84 Calcium 9.1 Total Bilirubin 0.2 AST 24 ALT 41 Alkaline Phosphatase 81 Total Protein 5.9 L Albumin 3.6 Globulin 2.3 Albumin/Globulin Ratio 1.6 Lipase 141 Procalcitonin < 0.05 Assessment & Plan Plan: Assessment/Plan Narrative: Patient with a very complicated surgical history on her abdomen with an intussusception on CT that appears to be a chronic and possibly an intermittent problem. She has been having symptoms for 6 months. As I began to talk to her about says the treatments and evaluation for this she stated quite plainly that she had no intention of having an operation now. She has had this for a very long time. She has a job interview on Monday that she has no intention of missing. And so unless she has a life-threatening problem right now she will not be staying in the hospital. With that in fat ache statement of her intentions I told her that I would be happy to see her in my office. This will give me the opportunity to review the films with the radiologist. Will also allow me to plot a course forward. I think any operation on her is fraught with the potential for disaster and I just want to be certain that I am doing the best thing for her in this regard.
== END 2018-10-12 21:25 | disposition home or self-care (01) ==
PROVIDERS: Emergency Provider Emergency Medicine; PCP Family Medicine
DX: K56.1 Intussusception (principal)
CPT/HCPCS: 36415; 36591; 74018; 74177; 80048; 80053; 83690; 84145; 85025; 96360; 99283; 99285; Q9967

== ENCOUNTER → 2018-10-26 09:58 | Outpatient (CLI) | payer MEDICARE, SELFPAY ==
--- NOTE | 2018-10-26 10:11 | DI.CT.S_ITS ---
PROCEDURE: CT ABDOMEN PELVIS W CON INDICATIONS: Follow-up intussusception. Confirmed persistence TECHNIQUE: After the administration of oral and intravenous contrast, 5 mm thick sections acquired from the diaphragms to the symphysis. 5 mm thick coronal and sagittal reformats were performed. For radiation dose reduction, the following was used: automated exposure control, adjustment of mA and/or kV according to patient size. COMPARISON: [facility], CT, CT ABDOMEN PELVIS W CON, 10/12/2018, 12:13. FINDINGS: Image quality: Excellent. ABDOMEN: Lung bases: Lung bases are clear. Heart size is normal. Solid organs: Liver is normal in size and enhancement. Gallbladder is surgically absent. Pancreatic biliary ductal system remains prominent to a stable degree. Pancreas enhances normally. Spleen is normal in size and enhancement. No adrenal nodules. Kidneys are normal in size and enhancement, without hydronephrosis. Left lower pole renal calculus not visualized. Peritoneum and bowel: There is surgical changes of gastric bypass including a staple line across the proximal stomach, and gastrojejunal anastomosis, and a side to side left abdominal enteric anastomosis. There is a short segment of focal bowel wall thickening adjacent to small bowel anastomosis in the left abdomen, similar compared to the prior study without discrete intussusception morphology. The adjacent jejunal loops are mildly patulous but nonobstructed. Distal small bowel loops are normal caliber. The colon is largely decompressed. No pericolonic inflammation. Nodes and vessels: No retroperitoneal or mesenteric adenopathy. Aorta and inferior vena cava are normal in caliber. Miscellaneous: No ventral hernias. PELVIS: Genitourinary: Bladder is decompressed.. Surgically absent uterus. Miscellaneous: No inguinal hernias or adenopathy. Bones: Decreased mineralization. Moderate lower lumbar facet degeneration. No suspicious bony lesions. No vertebral body compression fractures. IMPRESSION: 1. Interval resolution of intussusception morphology in the left abdomen. 2. Surgical changes of gastric bypass including a side to side left mid abdominal small bowel anastomosis may contribute to small bowel morphology seen. Redundant tissue may be a lead point for intussusception. Differential diagnosis includes pathologic bowel wall thickening which may be result of malabsorptive state, inflammatory bowel disease, potentially lymphomatous change. Given the nonobstructive morphology, capsule endoscopy may be useful. Colonoscopy to exclude inflammatory bowel disease may be useful if not previously performed. 3. Persistent pancreatic or biliary ductal dilatation. 4. Interval passage or dissolution of lower pole left renal calculus. Dictated by: Janis Mcbride M.D. on 10/26/2018 at 12:33 Approved by: Janis Mcbride M.D. on 10/26/2018 at 13:02
[2018-10-26 10:31] LABS: Blood Urea Nitrogen 12 mg/dL (7-17); Estimated Glomerular Filt Rate 54.8 mL/min (>60)
== END ==
PROVIDERS: PCP Family Medicine; Visit Provider Specialist
DX: K56.1 Intussusception (principal); K83.8 Other specified diseases of biliary tract; K86.89 Other specified diseases of pancreas; Z98.84 Bariatric surgery status
CPT/HCPCS: 36415; 74177; 82565; 84520; Q9967

== ENCOUNTER 2018-11-20 06:39 | Day surgery (SDC) | payer MEDICARE, SELFPAY ==
[2018-11-20] VITALS (9 sets, daily range): BP systolic 96–102; BP diastolic 60–66; PULSE 68–83; RESP 11–20; TEMP 36.1–36.7; O2SAT 95–100; BMI 23.3
[2018-11-20] MEDS: SODIUM CHLORIDE 0.9% 1,000 ML 100 ML IV (07:14)
[2018-11-20] MEDS: TETRACAINE/BENZOCAINE/BUTAMBEN (CETACAINE) BOTTLE 1 SPRAY TOP (08:03)
--- NOTE | 2018-11-20 08:06 | P.HP_ITS ---
History of Present Illness Date Patient Seen: 11/20/18 Time Patient Seen: 08:03 Chief complaint: [id number] Narrative: The patient is woman who was been seen in the past for intermittent abdominal pain weight loss. A schedule an EGD hoping to find some source of an intussusception that she was found to have incidentally on the CT scan. Repeat CT scan showed that it had resolved. She has had multiple abdominal procedures and I am very hesitant to approach her abdomen due to scarring. I am hoping to find the cause with an endoscope the can be treated medically. Patient History Medical History ADHD (Chronic) Anxiety (Chronic) Chronic back pain (Chronic) Depression (Chronic) Hypothyroid (Chronic) Migraines (Chronic) Injury of common bile duct during operative procedure (Resolved) Surgical History H/O abdominoplasty (Resolved) H/O bilateral breast implants (Resolved) History of Kym-en-Y gastric bypass (Resolved) History of cholecystectomy (Resolved) History of tonsillectomy (Resolved) S/P SELMA-BSO (Resolved) Social History household members: spouse occupational status: employed Smoking Status: Former smoker alcohol intake: never substance use type: does not use Family & Social History Social History: household members spouse Tobacco & Substance use: Smoking Status Former smoker alcohol intake never alcohol intake frequency other Substance Use Type does not use Meds Home Medications Medication Instructions Recorded Confirmed Type CHOLECALCIFEROL (VITAMIN D3) PO QDAY #0 06/22/16 10/17/18 History (VITAMIN D) aspirin 81 mg PO QDAY #0 06/22/16 11/20/18 History topiramate [Topamax] 100 mg PO BID #0 06/22/16 11/20/18 History Movantik 25 mg PO QDAY #0 04/05/17 11/20/18 History [OMEGA KRILL FISH OIL] PO BID #0 04/05/17 08/01/18 History biotin 10,000 PO QPM #0 04/05/17 10/17/18 History levothyroxine 0.137 mg PO QAM #0 04/05/17 11/20/18 History morphine 1 tab PO TID #0 04/05/17 11/20/18 History oxycodone-acetaminophen [Endocet] 2 tab PO Q6HP PRN #0 04/05/17 11/20/18 History [VIVISCAL EXTRA STR.] 1 tab PO QDAY #0 09/08/17 10/17/18 History meclizine 25 mg PO TID #0 09/08/17 11/20/18 History conjugated estrogens 0.625 mg/gram See Rx Instructions VAG .COMPLEX 02/15/18 11/20/18 Rx vaginal cream #30 gram tizanidine 4 mg capsule 4 mg PO TID PRN 04/30/18 11/20/18 History duloxetine 30 mg capsule,delayed 30 mg PO QDAY #90 cap 10/02/18 11/20/18 Rx release duloxetine 60 mg capsule,delayed 60 mg PO QDAY #90 cap 10/02/18 11/20/18 Rx release hydroxyzine pamoate 25 mg capsule 25 mg PO QID PRN 90 Days #90 cap 10/02/18 11/20/18 Rx methylphenidate 10 mg tablet 10 mg PO DAILY #30 tab 10/02/18 11/20/18 Rx methylphenidate ER 18 mg 18 mg PO QAM #30 tab 10/02/18 11/20/18 Rx tablet,extended release 24 hr quinine 324 mg capsule 324 mg PO BEDTIME 10/02/18 11/20/18 History trazodone 50 mg tablet 100 mg PO HS #180 tab 10/02/18 11/20/18 Rx baclofen 10 mg tablet 10 mg PO TID 10/17/18 11/20/18 History Allergies Allergy/AdvReac Type Severity Reaction Status Date / Time meperidine [From DEMEROL] Allergy Severe BREATHING Verified 11/20/18 07:15 COMPLICATIONS Penicillins [PENICILLINS] Allergy Intermediate RASH Verified 11/20/18 07:15 Review of Systems Review of Systems No chest pain or breathing problems at this time. She has had a bypass in test[place] for weight loss in the distant past has kept her weight off. She is hypothyroid and takes medication for anxiety Exam Vital Signs (past 8 hours): - 11/20/18 07:13 Temperature 98.1 F Pulse Rate 69 Respiratory Rate 20 Blood Pressure 96/60 Pulse Oximetry 95 Oxygen Delivery Method Room Air Narrative Exam Narrative: operative no apparent distress. Lungs are clear heart regular rate and rhythm without murmur gallop abdomen is scaphoid soft with multiple scars. Alert oriented Assessment & Plan Assessment & Plan narrative: patient with weight loss and probable intermittent intussusception. Plan to do an EGD in the hopes that I can determine a cause for her intussusceptions that can be treated without a surgical intervention. Risks of bleeding of and perforation were discussed. She appears to understand and wishes to proceed
--- NOTE | 2018-11-20 08:06 | PM.PREOP ---
Pre-operative Note Interval Note History & Physical reviewed/Exam performed by Physician: Yes Changes to H&P: No ASA Class (for procedural sedation): III
[2018-11-20] MEDS: LIDOCAINE 4% SOLN 50 ML 20 ML TOP (08:07)
[2018-11-20] MEDS: MIDAZOLAM 5 MG/5 ML VIAL IV (08:24)
[2018-11-20] MEDS: fentaNYL 250 MCG/5 ML INJ IV (08:25)
--- NOTE | 2018-11-20 08:30 | PM.OP.ENDO ---
Operative Date/Time/Diagnoses Date of procedure: 11/20/18 Time of procedure: 08:30 Pre-op diagnosis: Abdominal pain, intermittent volvulus, weight loss Post-op diagnosis: same Procedure & Clinicians Study performed: upper GI endoscopy Same procedure as scheduled: Yes Indications: try to find a cause for her symptoms Surgeon: Clemente Jordan Procedure Notes SCOAP/Timeout: performed Procedure in detail: the patient was placed left lateral decubitus position after having topical anesthetic applied to oropharynx. She was sedated with Demerol and Versed. A bite block was inserted. The scope was advanced through it into the esophagus. The esophagus was normal. GE junction appeared to be normal in located at about 37 cm from the incisors. She had a very small gastric remnant as anticipated. Her small bowel leading away from it was normal to the length of the entire scope. Scope was brought out slowly there were no lesions seen. Patient tolerated the procedure well. Scope withdrawal time: Not applicable Sedation minutes: 7 Findings: other findings ( Kym-en-Y gastrojejunostomy) Specimen(s): none sent Complications: none Plan for aftercare: will see in office to discuss abdominal exploration. We will consider repeating her CT scan. Follow up: weeks ( One) Disposition: PACU
== END 2018-11-20 09:33 | disposition home or self-care (01) ==
PROVIDERS: PCP Family Medicine; Visit Provider Specialist
PROC: 0DJ08ZZ Inspection of Upper Intestinal Tract, Via Natural or Artificial Opening Endoscopic (ICD-10-PCS; CPT 43235; principal; 2018-11-20 07:45)
DX: R10.9 Unspecified abdominal pain (principal); R63.4 Abnormal weight loss; K56.2 Volvulus; F41.9 Anxiety disorder, unspecified; E03.9 Hypothyroidism, unspecified; F32.9 Major depressive disorder, single episode, unspecified
CPT/HCPCS: 43235; 99152; J2250; J3010

== ENCOUNTER 2019-02-14 13:22 | Day surgery (SDC) | payer MEDICARE, SELFPAY ==
[2019-02-14] MEDS: PROPARACAINE 0.5% OPHTH SOL 2 DROPS EYE-OP (15:23)
[2019-02-14 15:28] VITALS: BP 115/69; PULSE 83; RESP 15; TEMP 36.5; O2SAT 97
[2019-02-14] MEDS: CATARACT EYE COMPOUND (10 DROPS/SYRINGE) 3 DROPS EYE-OP (15:29)
[2019-02-14 15:30] VITALS: BMI 22.8
--- NOTE | 2019-02-14 15:52 | PM.PREOP ---
Pre-operative Note Interval Note History & Physical reviewed/Exam performed by Physician: Yes Changes to H&P: No
[2019-02-14] MEDS: PHENYLEPHRINE/LIDOCAINE VIAL (OR) 0.2 ML EYE-OP (16:15)
[2019-02-14] MEDS: MOXIFLOXACIN OPHTH DROPS 3 ML BOTTLE 2 DROPS INJ (16:16)
[2019-02-14] MEDS: CHONDROIDTIN/SOD HYALURONATE 1.05 ML SYRINGE INTRAOCULA (16:16)
[2019-02-14] MEDS: BALANCED SALT IRRIG SOLN NO.2 15 ML IRR (16:17)
[2019-02-14] MEDS: TETRACAINE 0.5% OPHTH DROPS 4 ML 2 DROPS EYE-LEFT (16:17)
[2019-02-14] MEDS: BALANCED SALT IRRIG SOLN NO.2 500 ML, EPINEPHrine 1 MG IRR (16:18)
[2019-02-14] MEDS: LIDOCAINE 2% INJ SDV 0.5 ML TOP (16:18)
--- NOTE | 2019-02-14 16:39 | PM.OP.1 ---
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 The correct patient, surgical site and lens were confirmed. 0.5 % tetracaine drops were placed in the left eye. The patient was prepped and draped in the typical sterile manner. A lid speculum was placed in the eye. 2% lidocaine was placed on the eye. A paracentesis port was created with a side-port blade. 0.1 mL of 1% preservative free lidocaine with phenylephrine was injected into the anterior chamber. Viscoelastic was injected into the anterior chamber. A 2.6mm keratome was used to create a clear corneal temporal incision. Cystotome and Utrata forceps were used to create a continuous curvilinear capsulorrhexis. Balanced salt solution was used to hydrodissect the nucleus. Phacoemulsification was used to remove the lens. The capsular bag was inflated with viscoelastic. A Manjarrez ZBOO +23.5D lens was inserted into the capsule. Viscoelastic was removed and the wound hydrated. The wound was found to be leak free and the eye was assessed to be at normal physiologic pressure. 0.1mL Vigamox was injected into the anterior chamber. The lid speculum was removed and the patient left the operating room in excellent condition. Complications: none Condition: stable Disposition: same day surgery
[2019-02-14 16:40] VITALS: BP 113/78; PULSE 90; RESP 12; TEMP 36.3; O2SAT 94
== END 2019-02-14 17:05 | disposition home or self-care (01) ==
LOC: OR 13:24
PROVIDERS: PCP Family Medicine; Visit Provider Ophthalmology
PROC: (CPT 66984; principal; 2019-02-14 16:00)
DX: H25.12 Age-related nuclear cataract, left eye (principal); E11.9 Type 2 diabetes mellitus without complications; E03.9 Hypothyroidism, unspecified; M79.7 Fibromyalgia; F41.9 Anxiety disorder, unspecified; F32.9 Major depressive disorder, single episode, unspecified
CPT/HCPCS: 66984; J0171; J2250; J3010

== ENCOUNTER 2019-02-21 10:24 | Day surgery (SDC) | payer MEDICARE, SELFPAY ==
[2019-02-21] MEDS: PROPARACAINE 0.5% OPHTH SOL 2 DROPS EYE-OP (10:48)
[2019-02-21] MEDS: CATARACT EYE COMPOUND (10 DROPS/SYRINGE) 3 DROPS EYE-OP (10:50)
--- NOTE | 2019-02-21 10:51 | PM.PREOP ---
Pre-operative Note Interval Note History & Physical reviewed/Exam performed by Physician: Yes Changes to H&P: No
[2019-02-21 10:59] VITALS: BP 106/70; PULSE 91; RESP 16; TEMP 36.6; O2SAT 97; BMI 22.4
[2019-02-21] MEDS: BALANCED SALT IRRIG SOLN NO.2 15 ML IRR (11:37)
[2019-02-21] MEDS: TETRACAINE 0.5% OPHTH DROPS 4 ML 2 DROPS EYE-OP (11:38)
[2019-02-21] MEDS: MOXIFLOXACIN OPHTH DROPS 3 ML BOTTLE 2 DROPS INJ (11:38)
[2019-02-21] MEDS: PHENYLEPHRINE/LIDOCAINE VIAL (OR) 0.2 ML EYE-OP (11:38)
[2019-02-21] MEDS: CHONDROIDTIN/SOD HYALURONATE 1.05 ML SYRINGE INTRAOCULA (11:38)
[2019-02-21] MEDS: BALANCED SALT IRRIG SOLN NO.2 500 ML, EPINEPHrine 1 MG IRR (11:39)
[2019-02-21] MEDS: LIDOCAINE 2% INJ SDV 0.5 ML TOP (11:40)
--- NOTE | 2019-02-21 11:57 | P.OP_ITS ---
Procedure & Clinicians Procedure: Cataract extraction with intraocular lens implant, right Same procedure as scheduled: Yes Indications: Visually significant age related nuclear sclerosis, right Surgeon: Francis Balbuena Click Yes if Unassisted: Yes Anesthesia Type: MAC +/- Operative Notes Procedure in detail: The patient was brought to the operating suite. The correct patient, surgical site and lens were confirmed. 0.5 % tetracaine drops were placed in the right eye. The patient was prepped and draped in the typical s terile manner. A lid speculum was placed in the eye. 2% lidocaine was placed on the eye. A paracentesis port was created with a side-port blade. 0.1 mL of 1% preservative free lidocaine with phenylephrine was injected into the anterior chamber. Viscoelastic was injected into the anterior chamber. A 2.6mm keratome was used to create a clear corneal temporal incision. Cystotome and Utrata forceps were used to create a continuous curvilinear capsulorrhexis. Balanced salt solution was used to hydrodissect the nucleus. Phacoemulsification was used to remove the lens. The capsular bag was inflated with viscoelastic. A Manjarrez ZBOO +23.5D lens was inserted into the capsule. Viscoelastic was removed and the wound hydrated. The wound was found to be leak free and the eye was assessed to be at normal physiologic pressure. 0.1mL Vigamox was injected into the anterior chamber. The lid speculum was removed and the patient left the operating room in excellent condition. Complications: none Condition: stable Disposition: same day surgery
[2019-02-21 12:05] VITALS: BP 113/56; PULSE 85; RESP 16; TEMP 36.3; O2SAT 97
== END 2019-02-21 12:14 ==
LOC: OR 10:26
PROVIDERS: PCP Family Medicine; Visit Provider Ophthalmology
PROC: (CPT 66984; principal; 2019-02-21 11:45)
DX: H25.11 Age-related nuclear cataract, right eye (principal); E11.9 Type 2 diabetes mellitus without complications; E03.9 Hypothyroidism, unspecified; M79.7 Fibromyalgia; F41.9 Anxiety disorder, unspecified; E78.5 Hyperlipidemia, unspecified
CPT/HCPCS: 66984; J0171; J2250; J3010

== ENCOUNTER → 2019-03-08 12:35 | Outpatient (CLI) | payer MEDICARE, SELFPAY ==
--- NOTE | 2019-03-08 12:39 | DI.RAD.S_ITS ---
PROCEDURE: FL UPPER GI SMALL BOWEL INDICATIONS: Intermittent abdominal pain. intussusception intermittant COMPARISON: None. FINDINGS: KUB: Preprocedural basketball scout film shows a normal bowel gas pattern. No suspicious abdominal calcifications. Visualized solid organ contours appear normal in size. No suspicious bony abnormalities. Surgical clips are noted in gallbladder fossa. Esophagus: Air-contrast views demonstrate a normal mucosal pattern. On single-contrast views, there is normal peristalsis. No fixed strictures, extrinsic mass effects, or diverticula. No hiatal hernias or significant gastroesophageal reflux. There is normal transit of a calibrated barium tablet through the esophagus. Stomach: Patient is status post prior gastric bypass surgery with normal appearing small gastric remnant. Small bowel: Duodenal folds appear normal in thickness. There is normal transit time of barium through the small intestine. Small bowel loops appear normal in caliber throughout. Jejunal and ileal folds are smooth and normal in thickness. No strictures, intraluminal masses, or extrinsic mass effects. The terminal ileum is identified and appears normal. IMPRESSION: Prior gastric bypass surgery. No bowel obstruction. No abnormal bowel wall thickening. No focal stricture or contrast extravasation. No evidence of intussusception is seen during the study. Dictated by: Madhu Ortiz M.D. on 03/08/2019 at 15:25 Approved by: Madhu Ortiz M.D. on 03/08/2019 at 15:28
== END ==
PROVIDERS: PCP Family Medicine; Visit Provider Specialist
DX: K56.1 Intussusception (principal); R10.9 Unspecified abdominal pain; Z98.84 Bariatric surgery status
CPT/HCPCS: 74245

== ENCOUNTER 2019-05-10 21:52 | Emergency (ER) | payer MEDICARE, SELFPAY ==
[2019-05-10 21:54] VITALS: BP 115/71; PULSE 92; RESP 19; TEMP 36.9; O2SAT 95; BMI 22.4
--- NOTE | 2019-05-10 22:03 | PC.NURSE ---
Pt was shopping and a rack of picture frames fell on her. she states that she was fine when it happened by today her right neck and shoulder area began to get sore. Denies tingling or numbness. Denies tenderness on cervical and thoracic spine palpation. Denies wanting pain medication. States she may need a muscle relaxer because it's muscle pain. Pt is able to touch left shoulder with right hand while raising elbow up and down. Pt states she tried to catch rack and moved her arm back quickly. States the department store called her and wanted her to go get checked out.
--- NOTE | 2019-05-10 22:06 | ED_ITS ---
HPI - Neck Pain/Injury General Chief Complaint: Neck Pain/Injury Stated Complaint: RIGHT SIDE NECK AND BACK PAIN Time Seen by Provider: 05/10/19 22:05 Source: patient Mode of arrival: ambulatory Limitations: no limitations History of Present Illness HPI Narrative: Patient is a 68-year-old female who yesterday was hit in her right shoulder when she was at a department store was some picture frames. Since that time she has had right neck and right shoulder pain. she stated that she was called by the department store today to see how she was doing and they informed her to come to the emergency department for evaluation. Patient is complaining of right shoulder pain. She does have baclofen at home which she took without much improvement. Patient states she does not want any pain medication. She states that she knows there is nothing that we can do out of the emergency department. She was asking for a different type of muscle relaxer. Patient did not want me to touch her right shoulder. Related Data Home Medications Medication Instructions Recorded Confirmed CHOLECALCIFEROL (VITAMIN D3) 1,000 units PO QDAY #0 06/22/16 04/15/19 (VITAMIN D) aspirin 81 mg PO QDAY #0 06/22/16 04/15/19 topiramate [Topamax] 100 mg PO BID #0 06/22/16 04/15/19 Movantik 25 mg PO QDAY #0 04/05/17 04/15/19 biotin 10,000 mg PO DAILY #0 04/05/17 04/15/19 levothyroxine 0.137 mg PO QAM #0 04/05/17 04/15/19 morphine 1 tab PO TID #0 04/05/17 04/15/19 oxycodone-acetaminophen [Endocet] 2 tab PO Q6HP PRN #0 04/05/17 04/15/19 [VIVISCAL EXTRA STR.] 1 tab PO QDAY #0 09/08/17 04/15/19 quinine 324 mg capsule 324 mg PO BEDTIME 10/02/18 04/15/19 baclofen 10 mg tablet 10 mg PO TID 10/17/18 04/15/19 Previous Rx's Medication Instructions Recorded hydroxyzine pamoate 25 mg capsule 25 mg PO QID PRN 90 Days #90 cap 10/02/18 trazodone 50 mg tablet 100 mg PO HS #180 tab 10/02/18 duloxetine 30 mg capsule,delayed 30 mg PO QDAY #90 cap 03/29/19 release duloxetine 60 mg capsule,delayed 60 mg PO QDAY #90 cap 03/29/19 release dextroamphetamine-amphetamine 10 10 mg PO BID #60 tab 04/15/19 mg tablet Allergies Allergy/AdvReac Type Severity Reaction Status Date / Time meperidine [From DEMEROL] Allergy Severe BREATHING Verified 04/15/19 15:34 COMPLICATIONS Penicillins [PENICILLINS] Allergy Intermediate RASH Verified 04/15/19 15:34 Review of Systems Constitutional Denies fever(s) Cardiovascular Denies chest pain and Denies dyspnea Respiratory Denies dyspnea Gastrointestinal Gastrointestinal: Denies abdominal pain Musculoskeletal Denies tingling Comments: Right shoulder pain Integumentary/Breasts Denies lesions and Denies rash Neurologic Denies tingling and Denies paresthesias Hematologic/Lymphatic Denies easy bleeding and Denies easy bruising PFSH Medical History ADHD (Chronic) Anxiety (Chronic) Chronic back pain (Chronic) Depression (Chronic) Hypothyroid (Chronic) Migraines (Chronic) Injury of common bile duct during operative procedure (Resolved) Social History household members: spouse occupational status: employed Smoking Status: Former smoker alcohol intake: never substance use type: does not use Exam Initial Vital Signs Initial Vital Signs: Vital Signs Temperature 98.4 F 05/10/19 21:54 Pulse Rate 92 H 05/10/19 21:54 Respiratory Rate 19 05/10/19 21:54 Blood Pressure 115/71 05/10/19 21:54 Pulse Oximetry 95 05/10/19 21:54 Const General: cooperative, well developed, well groomed and No acute distress Orientation: alert and awake Resp Effort & Inspection: normal respiratory effort Cardio Rate: regular rate Skin Lesions: no lesions Rashes: no rashes Neuro General: alert and awake Cognition: normal cognition Speech: speech normal Extrem General: normal to inspection and capillary refill normal Psych Appearance: grossly normal and well kempt Course Orders Ordered: Discontinued Medications Cyclobenzaprine HCl (Flexeril 10 Mg Prepack) 1 bottle MISC SEEINSTR ONE Stop: 05/10/19 22:17 Last Admin: 05/10/19 22:28 Dose: 1 bottle Ketorolac Tromethamine (Toradol) 30 mg IM NOW ONE Stop: 05/10/19 22:17 Last Admin: 05/10/19 22:28 Dose: 30 mg Vital Signs - 8 hr 05/10/19 21:54 05/10/19 22:40 Temperature 98.4 F Pulse Rate 92 H 64 Respiratory Rate 19 16 Blood Pressure 115/71 Blood Pressure [Right Arm] 122/73 Pulse Oximetry 95 98 MDM - Neck Pain/Injury MDM Narrative Medical decision making narrative: Patient did not want to move her right shoulder secondary to pain. She did not want me to touch her right shoulder secondary to the pain. patient stated that she did not want any pain medication however we did discuss Toradol use. Which she was given here in the emergency department. Patient was only asking for muscle relaxers. Will send her home with a prepack of Flexeril. She did not want x-rays. Patient was given return precautions and follow-up instructions. She expressed understanding and agreement plan. Discharge Plan Departure Patient Disposition: Home Clinical Impression: Neck muscle strain Qualifiers: Encounter type: initial encounter Qualified Code(s): S16.1XXA - Strain of muscle, fascia and tendon at neck level, initial encounter Discharge Date/Time: 05/10/19 22:56 Interventions: ED Discharge Assessment Last Done: 05/10/19 22:55 Instructions: Neck Sprain Activity Restrictions/Additional Instructions: Take the medications as directed. Would recommend you start taking an anti- inflammatories such as Motrin or Naprosyn. You can continue to ice your shoulder/neck. Contact your primary provider for follow-up. Return emergency department for any new or worsening symptoms Prescriptions: No Action quinine sulfate 324 mg capsule 324 mg PO BEDTIME RF: 0 hydroxyzine pamoate 25 mg capsule 25 mg PO QID PRN (Reason: anxiety) 90 Days Qty: 90 RF: 3 trazodone 50 mg tablet 100 mg PO HS Qty: 180 RF: 3 dextroamphetamine-amphetamine [Adderall] 10 mg tablet 10 mg PO BID Qty: 60 RF: 0 topiramate [Topamax] 50 MG tablet 100 mg PO BID Qty: 0 RF: 0 aspirin 81 MG tablet,delayed release (DR/EC) 81 mg PO QDAY Qty: 0 RF: 0 CHOLECALCIFEROL (VITAMIN D3) (VITAMIN D) 1,000 units PO QDAY Qty: 0 RF: 0 levothyroxine 137 MCG tablet 0.137 mg PO QAM Qty: 0 RF: 0 morphine 30 MG tablet extended release 1 tab PO TID Qty: 0 RF: 0 biotin 1 mg Capsule 10,000 mg PO DAILY Qty: 0 RF: 0 oxycodone-acetaminophen [Endocet] 10 MG/325 MG tablet 2 tab PO Q6HP PRN (Reason: (Drug) Ingestion) Qty: 0 RF: 0 Movantik 25 MG tablet 25 mg PO QDAY Qty: 0 RF: 0 [VIVISCAL EXTRA STR.] 1 tab PO QDAY Qty: 0 RF: 0 duloxetine [Cymbalta] 30 mg capsule,delayed release(DR/EC) 30 mg PO QDAY Qty: 90 RF: 3 duloxetine [Cymbalta] 60 mg capsule,delayed release(DR/EC) 60 mg PO QDAY Qty: 90 RF: 3 baclofen 10 mg tablet 10 mg PO TID RF: 0 Referrals: Shaina Boyd DO [Primary Care Provider] -
[2019-05-10] MEDS: CYCLOBENZAPRINE 10 MG PREPACK 1 BOTTLE MISC (22:28)
[2019-05-10] MEDS: KETOROLAC 60 MG/2 ML VIAL 30 MG IM (22:28)
[2019-05-10 22:40] VITALS: BP 122/73; PULSE 64; RESP 16; O2SAT 98
--- NOTE | 2019-05-10 22:52 | PC.NURSE ---
pt remaind in unit on medhold after administration prior to discharge. Pt reports feels way better after toradol.
== END 2019-05-10 22:56 | disposition home or self-care (01) ==
PROVIDERS: Emergency Provider Emergency Medicine; PCP Family Medicine
DX: S16.1XXA Strain of muscle, fascia and tendon at neck level, initial encounter (principal); W22.8XXA Striking against or struck by other objects, initial encounter
CPT/HCPCS: 96372; 99282; 99283; J1885

== ENCOUNTER 2019-09-10 10:04 | Emergency (ER) | payer MEDICARE, SELFPAY ==
[2019-09-10 10:10] VITALS: BP 124/89; PULSE 85; RESP 14; TEMP 36.7; O2SAT 100
--- NOTE | 2019-09-10 10:29 | PC.NURSE ---
Soft cervical collar placed for pain as pt states it hurt to hold her head up. Feels improved with it in place.
--- NOTE | 2019-09-10 10:58 | ED.NECK ---
HPI - Neck Pain/Injury General Chief Complaint: Neck Pain/Injury Stated Complaint: Severe Neck Pain.. Time Seen by Provider: 09/10/19 10:42 Mode of arrival: Ambulatory Limitations: no limitations History of Present Illness HPI Narrative: Patient comes emergency department complaining of pain and stiffness in her neck. She states she has chronic neck pain and was having some symptoms last night, but that her symptoms are much worse today. She states that she cannot turn her head from side to side or not forward much, because of stiffness and pain that starts at the base of her skull and wraps around to just behind her ears. She states that she has not had any fevers or chills. No photophobia. She has not had any recent injuries of any kind and has not done any strenuous work. 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 She denies any new numbness or tingling in her upper extremities, though this is a chronic issue for her. No lower extremity neurologic symptoms. Patient states she already took an oxycodone and Flexeril at home and this was not helpful for her symptoms. Related Data Home Medications Medication Instructions Recorded Confirmed aspirin 81 mg PO DAILY #0 06/22/16 09/10/19 cholecalciferol (vitamin D3) 1,000 unit PO DAILY #0 06/22/16 09/10/19 [Vitamin D3] Movantik 25 mg PO DAILY #0 04/05/17 09/10/19 biotin 10,000 mg PO DAILY #0 04/05/17 09/10/19 levothyroxine 0.137 mg PO QAM #0 04/05/17 09/10/19 morphine 30 tab PO TID #0 04/05/17 09/10/19 oxycodone-acetaminophen [Endocet] 1 tab PO BID #0 04/05/17 09/10/19 [VIVISCAL EXTRA STR.] 1 tab PO DAILY #0 09/08/17 09/10/19 quinine sulfate 324 mg capsule 324 mg PO BEDTIME 10/02/18 09/10/19 cyclobenzaprine 10 mg PO PRN PRN 09/10/19 09/10/19 ipratropium bromide 1 spray INTRANASAL DIRECTED 09/10/19 09/10/19 topiramate 100 mg PO BID 09/10/19 09/10/19 trazodone 100 mg PO BEDTIME 09/10/19 09/10/19 valacyclovir 500 mg PO DAILY 09/10/19 09/10/19 Previous Rx's Medication Instructions Recorded hydroxyzine pamoate 25 mg capsule 25 mg PO QID PRN 90 Days #90 cap 10/02/18 duloxetine 30 mg capsule,delayed 30 mg PO QDAY #90 cap 03/29/19 release duloxetine 60 mg capsule,delayed 60 mg PO QDAY #90 cap 03/29/19 release dextroamphetamine-amphetamine 10 10 mg PO BID #60 tab 07/01/19 mg tablet bupropion HCl 300 mg 24 hr tablet, 300 mg PO QAM #30 tab 08/20/19 extended release Allergies Allergy/AdvReac Type Severity Reaction Status Date / Time meperidine [From DEMEROL] Allergy Severe BREATHING Verified 09/10/19 10:13 COMPLICATIONS Penicillins [PENICILLINS] Allergy Intermediate RASH Verified 09/10/19 10:13 Review of Systems Constitutional Constitutional: Denies chills, Denies fatigue, Denies fever(s), Denies frequent falls, Denies lethargy and Denies weakness Eyes Eyes: Denies change in vision, Denies eye discharge, Denies irritation and Denies loss of vision ENT Ears, Nose, Mouth, and Throat: Denies change in voice, Denies dizziness, Reports neck pain (Neck stiffness), Denies sore throat and Denies throat swelling Cardiovascular Cardiovascular: Denies chest pain, Denies irregular heart rhythm, Denies lightheadedness, Denies palpitations, Denies dyspnea, Denies dyspnea on exertion and Denies orthopnea Respiratory Respiratory: Denies cough, Denies dyspnea, Denies dyspnea on exertion and Denies wheezing Gastrointestinal Gastrointestinal: Denies abdominal pain, Denies change in bowel habits, Denies diarrhea, Denies nausea and Denies vomiting Genitourinary Genitourinary: Denies hematuria, Denies flank pain, Denies urinary incontinence and Denies urinary urgency Musculoskeletal Musculoskeletal: Denies back pain, Denies muscle weakness, Reports neck pain (Neck stiffness), Denies numbness and Denies tingling Integumentary/Breasts Skin/Breast: Denies pruritus, Denies erythema, Denies rash and Denies wounds Neurologic Neurologic: Denies behavioral changes, Denies confusion, Denies dizziness, Denies frequent falls, Denies loss of vision, Denies numbness, Denies tingling and Denies weakness Psychiatric Psychiatric: Denies anxiety, Denies behavioral changes, Denies confusion, Denies depression, Denies homicidal ideation and Denies suicidal ideation Endocrine Endocrine: Denies fatigue, Denies flushing and Denies palpitations Hematologic/Lymphatic Hematologic/Lymphatic: Denies easy bruising Allergic/Immunologic Allergic/Immunologic: Denies urticaria, Denies throat swelling and Denies wheezing Patient History Medical History ADHD (Chronic) Anxiety (Chronic) Chronic back pain (Chronic) Depression (Chronic) Hypothyroid (Chronic) Injury of common bile duct during operative procedure (Resolved) Migraines (Chronic) Surgical History H/O abdominoplasty (Resolved) H/O bilateral breast implants (Resolved) History of cholecystectomy (Resolved) History of Kym-en-Y gastric bypass (Resolved) History of tonsillectomy (Resolved) S/P SELMA-BSO (Resolved) Social History household members: spouse occupational status: employed Smoking Status: Former smoker alcohol intake: never substance use type: does not use Smoking Status: Former smoker alcohol intake frequency: 0-2 drinks per day Substance Use Type: does not use Exam Initial Vital Signs Initial Vital Signs: Vital Signs Temperature 98.1 F 09/10/19 10:10 Pulse Rate 85 09/10/19 10:10 Respiratory Rate 14 09/10/19 10:10 Blood Pressure 124/89 09/10/19 10:10 Pulse Oximetry 100 09/10/19 10:10 Const General: cooperative and well developed Nutritional Appearance: well nourished Orientation: alert, awake, oriented x3 and not confused [facility] Head: normocephalic and atraumatic Ears: external ears normal and TM's normal bilaterally Nose: external nose normal and No nasal discharge Face and sinus: sinuses nontender, face symmetric, no sinus tenderness and No dry mucous membranes Mouth: oral mucosae normal and moist mucous membranes Teeth and gingiva: dentition normal Throat: tonsils normal and uvula midline Eyes General: appearance normal, both eyes and all related structures Eyelids: eyelids normal Conjunctivae: conjunctivae normal Sclera: sclerae normal Pupils: PERRL EOM: EOM intact bilaterally Neck Neck: normal visual inspection, trachea midline, No lymphadenopathy, No midline deformity and No JVD Lymphatic: No lymphedema Chest Chest: normal inspection of the chest Resp Effort & Inspection: normal respiratory effort, able to speak in complete sentences, no respiratory distress and no use of accessory muscles Auscultation: clear to auscultation bilaterally, no rales, no rhonchi and no wheezes Cardio Rate: regular rate Rhythm: regular rhythm Heart Sounds: no click, no gallops, no murmurs and no rubs Pulses: normal peripheral pulses GI Inspection: non-distended Palpation: soft, no hepatosplenomegaly, No guarding, No pulsatile mass and No tender Auscultation: normal bowel sounds Back/Spine/Pelvis Back: No CVA tenderness Cervical Spine: cervical ROM normal and No pain with cervical ROM Thoracic/Lumbar Spine: thoracic and lumbar spine normal to inspection Skin General: no rashes or lesions noted, No jaundice and No petechiae Neuro General: alert, oriented x3, gait normal and no focal motor deficits Speech: speech normal Extrem General: full ROM, no clubbing, cyanosis or edema, no pedal edema and no calf tenderness Psych Appearance: well kempt Mental Status: mental status grossly normal Attitude: cooperative Thought Content: normal and suicidality Judgment: judgment good Course Course Course Narrative: The patient was treated symptomatically in the emergency department for her pain. She had not had any new injuries or stresses to her neck which would raise concern for a serious cause of her pain. Additionally, her pain and tenderness were overwhelmingly muscular, and as such, I did not feel that imaging was indicated. The patient was feeling better after symptomatic treatment. We've discussed home management of the symptoms, as well as the usual indications for return. Orders Ordered: Discontinued Medications Ketorolac Tromethamine (Toradol) 30 mg IM NOW ONE Stop: 09/10/19 11:36 Last Admin: 09/10/19 11:44 Dose: 30 mg Documented by: UBALDO Vital Signs Vital signs: Vital Signs - 8 hr 09/10/19 10:10 Temperature 98.1 F Pulse Rate 85 Respiratory Rate 14 Blood Pressure 124/89 Pulse Oximetry 100 MDM - Neck Pain/Injury Medical Records Attestation: I reviewed the patient's medical records. Discharge Plan Departure Patient Disposition: Home Clinical Impression: Acute torticollis, Acute neck pain Discharge Date/Time: 09/10/19 11:53 Instructions: DI for Torticollis, DI for Neck Pain Prescriptions: No Action quinine sulfate 324 mg capsule 324 mg PO BEDTIME RF: 0 hydroxyzine pamoate 25 mg capsule 25 mg PO QID PRN (Reason: anxiety) 90 Days Qty: 90 RF: 3 dextroamphetamine-amphetamine [Adderall] 10 mg tablet 10 mg PO BID Qty: 60 RF: 0 aspirin 81 MG tablet,delayed release (DR/EC) 81 mg PO DAILY Qty: 0 RF: 0 cholecalciferol (vitamin D3) [Vitamin D3] 1,000 unit Capsule 1,000 unit PO DAILY Qty: 0 RF: 0 levothyroxine 137 MCG tablet 0.137 mg PO QAM Qty: 0 RF: 0 morphine 30 MG tablet extended release 30 tab PO TID Qty: 0 RF: 0 biotin 1 mg Capsule 10,000 mg PO DAILY Qty: 0 RF: 0 oxycodone-acetaminophen [Endocet] 10 MG/325 MG tablet 1 tab PO BID Qty: 0 RF: 0 Movantik 25 MG tablet 25 mg PO DAILY Qty: 0 RF: 0 [VIVISCAL EXTRA STR.] 1 tab PO DAILY Qty: 0 RF: 0 duloxetine [Cymbalta] 30 mg capsule,delayed release(DR/EC) 30 mg PO QDAY Qty: 90 RF: 3 duloxetine [Cymbalta] 60 mg capsule,delayed release(DR/EC) 60 mg PO QDAY Qty: 90 RF: 3 bupropion HCl 300 mg tablet extended release 24 hr 300 mg PO QAM Qty: 30 RF: 1 valacyclovir 500 mg tablet 500 mg PO DAILY RF: 0 ipratropium bromide 42 mcg (0.06 %) spray,non-aerosol 1 spray INTRANASAL DIRECTED RF: 0 topiramate 100 mg tablet 100 mg PO BID RF: 0 trazodone 50 mg tablet 100 mg PO BEDTIME RF: 0 cyclobenzaprine 10 mg tablet 10 mg PO PRN PRN (Reason: Spasms) RF: 0 Referrals: Shaina Boyd DO [Primary Care Provider] -
[2019-09-10] MEDS: KETOROLAC 60 MG/2 ML VIAL 30 MG IM (11:44)
== END 2019-09-10 11:53 | disposition home or self-care (01) ==
PROVIDERS: Emergency Provider Emergency Medicine; PCP Family Medicine
DX: M54.2 Cervicalgia (principal)
CPT/HCPCS: 99282; J1885

== ENCOUNTER 2019-09-10 19:34 | Emergency (ER) | payer MEDICARE, SELFPAY ==
[2019-09-10 19:46] VITALS: PULSE 77; RESP 18; O2SAT 99
--- NOTE | 2019-09-10 19:53 | ED.RECABL ---
HPI - Recheck/Abnormal Lab/Rx General Chief Complaint: Recheck/Abnormal Lab/Rx Stated Complaint: return for shots for pain in neck this morning Time Seen by Provider: 09/10/19 19:47 Source: patient Mode of arrival: Ambulatory Limitations: no limitations History of Present Illness HPI narrative: 69-year-old female with known chronic neck issues was seen here this morning for a flare-up of her issues. She states that she received a shot of Toradol. Patient states she was offered a shot of pain medication and a shot of a ?strong muscle relaxation ?medication however patient stated that she needed to go to work. She declined those medicines however did receive the Toradol. She returns now all since she is off of work to get the pain medication. No changes in her symptoms from this more Related Data Home Medications Medication Instructions Recorded Confirmed aspirin 81 mg PO DAILY #0 06/22/16 09/10/19 cholecalciferol (vitamin D3) 1,000 unit PO DAILY #0 06/22/16 09/10/19 [Vitamin D3] Movantik 25 mg PO DAILY #0 04/05/17 09/10/19 biotin 10,000 mg PO DAILY #0 04/05/17 09/10/19 levothyroxine 0.137 mg PO QAM #0 04/05/17 09/10/19 morphine 30 tab PO TID #0 04/05/17 09/10/19 oxycodone-acetaminophen [Endocet] 1 tab PO BID #0 04/05/17 09/10/19 [VIVISCAL EXTRA STR.] 1 tab PO DAILY #0 09/08/17 09/10/19 quinine sulfate 324 mg capsule 324 mg PO BEDTIME 10/02/18 09/10/19 cyclobenzaprine 10 mg PO PRN PRN 09/10/19 09/10/19 ipratropium bromide 1 spray INTRANASAL DIRECTED 09/10/19 09/10/19 topiramate 100 mg PO BID 09/10/19 09/10/19 trazodone 100 mg PO BEDTIME 09/10/19 09/10/19 valacyclovir 500 mg PO DAILY 09/10/19 09/10/19 Previous Rx's Medication Instructions Recorded hydroxyzine pamoate 25 mg capsule 25 mg PO QID PRN 90 Days #90 cap 10/02/18 duloxetine 30 mg capsule,delayed 30 mg PO QDAY #90 cap 03/29/19 release duloxetine 60 mg capsule,delayed 60 mg PO QDAY #90 cap 03/29/19 release dextroamphetamine-amphetamine 10 10 mg PO BID #60 tab 07/01/19 mg tablet bupropion HCl 300 mg 24 hr tablet, 300 mg PO QAM #30 tab 08/20/19 extended release Allergies Allergy/AdvReac Type Severity Reaction Status Date / Time meperidine [From DEMEROL] Allergy Severe BREATHING Verified 09/10/19 10:13 COMPLICATIONS Penicillins [PENICILLINS] Allergy Intermediate RASH Verified 09/10/19 10:13 Review of Systems Constitutional Constitutional: Denies fever(s) ENT Ears, Nose, Mouth, and Throat: Reports neck pain Cardiovascular Cardiovascular: Denies chest pain and Denies dyspnea Respiratory Respiratory: Denies dyspnea Musculoskeletal Musculoskeletal: Reports neck pain Integumentary/Breasts Skin/Breast: Denies rash Neurologic Neurologic: Denies behavioral changes Psychiatric Psychiatric: Denies behavioral changes Allergic/Immunologic Allergic/Immunologic: Denies urticaria Patient History Medical History ADHD (Chronic) Anxiety (Chronic) Chronic back pain (Chronic) Depression (Chronic) Hypothyroid (Chronic) Injury of common bile duct during operative procedure (Resolved) Migraines (Chronic) Social History household members: spouse occupational status: employed Smoking Status: Former smoker alcohol intake: never substance use type: does not use Smoking Status: Former smoker alcohol intake frequency: 0-2 drinks per day Substance Use Type: does not use Exam Initial Vital Signs Initial Vital Signs: Vital Signs Pulse Rate 77 09/10/19 19:46 Respiratory Rate 18 09/10/19 19:46 Pulse Oximetry 99 09/10/19 19:46 Const General: cooperative and healthy appearing Neck Other: In a soft cervical collar provided to her this morning Resp Effort & Inspection: normal respiratory effort Cardio Rate: regular rate Skin Lesions: no lesions Rashes: no rashes Neuro General: alert and awake Extrem General: normal to inspection Psych Appearance: grossly normal and well kempt Course Orders Ordered: Discontinued Medications Hydromorphone HCl (Dilaudid) 1 mg IM NOW ONE Stop: 09/10/19 19:57 Last Admin: 09/10/19 20:03 Dose: 1 mg Documented by: YUSRA Vital Signs Vital signs: Vital Signs - 8 hr 09/10/19 19:46 09/10/19 20:23 Pulse Rate 77 85 Respiratory Rate 18 16 Blood Pressure 108/71 Pulse Oximetry 99 99 MDM - Recheck/Abnormal Lab/Rx MDM Narrative Medical decision making narrative: Not quite sure with the patient was meeting by a injection of a ?strong muscle relaxation ?medicine. I did offer her an oral Valium which she declined. She was given 1 shot of Dilaudid. Discharged home afterwards. She was given return precautions. She expressed understanding and agreement. Discharge Plan Departure Patient Disposition: Home Clinical Impression: Neck pain Discharge Date/Time: 09/10/19 20:23 Instructions: DI for Chronic Neck Pain Activity Restrictions/Additional Instructions: Continue all of your medications as directed. Contact your primary care provider for a follow up. Prescriptions: No Action quinine sulfate 324 mg capsule 324 mg PO BEDTIME RF: 0 hydroxyzine pamoate 25 mg capsule 25 mg PO QID PRN (Reason: anxiety) 90 Days Qty: 90 RF: 3 dextroamphetamine-amphetamine [Adderall] 10 mg tablet 10 mg PO BID Qty: 60 RF: 0 aspirin 81 MG tablet,delayed release (DR/EC) 81 mg PO DAILY Qty: 0 RF: 0 cholecalciferol (vitamin D3) [Vitamin D3] 1,000 unit Capsule 1,000 unit PO DAILY Qty: 0 RF: 0 levothyroxine 137 MCG tablet 0.137 mg PO QAM Qty: 0 RF: 0 morphine 30 MG tablet extended release 30 tab PO TID Qty: 0 RF: 0 biotin 1 mg Capsule 10,000 mg PO DAILY Qty: 0 RF: 0 oxycodone-acetaminophen [Endocet] 10 MG/325 MG tablet 1 tab PO BID Qty: 0 RF: 0 Movantik 25 MG tablet 25 mg PO DAILY Qty: 0 RF: 0 [VIVISCAL EXTRA STR.] 1 tab PO DAILY Qty: 0 RF: 0 duloxetine [Cymbalta] 30 mg capsule,delayed release(DR/EC) 30 mg PO QDAY Qty: 90 RF: 3 duloxetine [Cymbalta] 60 mg capsule,delayed release(DR/EC) 60 mg PO QDAY Qty: 90 RF: 3 bupropion HCl 300 mg tablet extended release 24 hr 300 mg PO QAM Qty: 30 RF: 1 valacyclovir 500 mg tablet 500 mg PO DAILY RF: 0 ipratropium bromide 42 mcg (0.06 %) spray,non-aerosol 1 spray INTRANASAL DIRECTED RF: 0 topiramate 100 mg tablet 100 mg PO BID RF: 0 trazodone 50 mg tablet 100 mg PO BEDTIME RF: 0 cyclobenzaprine 10 mg tablet 10 mg PO PRN PRN (Reason: Spasms) RF: 0 Referrals: Shaina Boyd DO [Primary Care Provider] -
[2019-09-10] MEDS: HYDROMORPHONE 1 MG INJ IM (20:03)
[2019-09-10 20:23] VITALS: BP 108/71; PULSE 85; RESP 16; O2SAT 99
== END 2019-09-10 20:23 | disposition home or self-care (01) ==
PROVIDERS: Emergency Provider Emergency Medicine; PCP Family Medicine
DX: M54.2 Cervicalgia (principal)
CPT/HCPCS: 96372; 99281; 99282; 99283; J1170; J1885

== ENCOUNTER → 2020-01-23 09:04 | Outpatient (CLI) | payer MEDICARE, SELFPAY ==
--- NOTE | 2020-01-23 | DI.MG.S_ITS ---
BILATERAL DIGITAL DIAGNOSTIC MAMMOGRAM 3D/2D WITH AUGMENTATION: 01/23/2020 CLINICAL: Breast lump. Comparison is made to exams dated: 01/04/2018 mammogram, 12/22/2016 mammogram, and 10/11/2013 mammogram - [facility]. The tissue of both breasts is heterogeneously dense. This may lower the sensitivity of mammography. There is a 0.6 cm oval equal density mass with a circumscribed and microlobulated margin in the right axillary tail. This is seen in additional views. There is a fatty hilum. There are two adjacent similar appearing masses with circumscribed margins. These are not significantly changed compared to prior mammograms. No other significant masses, calcifications, or other findings are seen in either breast. IMPRESSION: INCOMPLETE: NEEDS ADDITIONAL IMAGING EVALUATION Small masses in the right axillary tail corresponding to the palpable abnormality are not significantly changed and most likely are small lymph node but remain indeterminate. A targeted ultrasound is recommended and will immediately follow. This exam was interpreted at Station ID: [id number]. NOTE: For mammograms, a report in lay terms will be sent to the patient. Approximately 15% of breast malignancies will not be visualized mammographically. In the management of a palpable breast mass, a negative mammogram must not discourage biopsy of a clinically suspicious lesion. Electronically Signed By: Trey Munoz M.D. slc/:01/23/2020 10:25:25 ACR BI-RADS Category 0: Incomplete [id number]
--- NOTE | 2020-01-23 | DI.US.S_ITS ---
ULTRASOUND OF RIGHT BREAST AND AXILLA: 01/23/2020 CLINICAL: Right axillary lumps. Comparison is made to exams dated: 01/23/2020 mammogram - [facility], 01/04/2018 mammogram, 12/22/2016 mammogram, and 10/11/2013 mammogram - [facility]. Color flow and real-time ultrasound of the right breast axilla were performed. Beckman scale images of the real-time examination were reviewed. There is a benign 0.5 cm x 0.4 cm x 0.3 cm oval normal lymph node with a circumscribed margin in the right axillary tail. This oval normal lymph node is hypoechoic with fatty hilum. No cortical thickening. This correlates as palpated and with mammography findings. Color flow imaging demonstrates that there is vascularity present. Additional adjacent similar appearing lymph node and small axillary lymph node with circumscribed margins, preserved fatty hilum, and no cortical thickening. IMPRESSION: BENIGN There is no sonographic evidence of malignancy. Palpable abnormality corresponds to small benign lymph nodes in the axillary tail. Exam findings were conveyed to the patient by the [employer] Attendant. The patient was advised to monitor the area for significant change. Return to annual mammogram screening schedule is recommended. This exam was interpreted at Station ID: [id number]. Electronically Signed By: Trey Munoz M.D. [facility] [place]/:01/23/2020 10:32:53 letter sent: Normal Exam Ultrasound BI-RADS: 2 Benign
== END ==
PROVIDERS: PCP Family Medicine; Referring Provider Registered Nurse; Visit Provider Registered Nurse
DX: R92.8 Other abnormal and inconclusive findings on diagnostic imaging of breast (principal); N63.31 Unspecified lump in axillary tail of the right breast
CPT/HCPCS: 76882; 77066; G0279

== ENCOUNTER → 2020-06-10 16:51 | Outpatient (CLI) | payer MEDICARE, SELFPAY ==
--- NOTE | 2020-06-10 16:54 | DI.MRI.S_ITS ---
PROCEDURE: MR HEAD/BRAIN WO/W CON INDICATIONS: Phonological disorder TECHNIQUE: Noncontrast axial T1 spin echo, axial T2 fast spin echo, sagittal and axial FLAIR, coronal T2 fast spin echo, axial gradient echo, axial diffusion and ADC through the brain. After the administration of contrast, axial and coronal T1 spin echo with fat saturation through the brain. COMPARISON: Denis Bai, MR, MR IAC'S MASTOIDS W&WO CON, 05/19/2016, 11:37. FINDINGS: Image quality: Diagnostic, with note made of motion artifact. CSF spaces: Basal cisterns are patent. No extra-axial fluid collections. Ventricles are normal in size and shape. Brain: A prominent sulcus is seen involving the right frontal lobe laterally, without mass effect or encephalomalacia. This is stable compared to 2016 and is considered to be benign. No midline shift. No intracranial bleeds or masses. No abnormal intracranial enhancement. There is cerebral volume loss for age. There is periventricular white matter chronic small vessel ischemic change. The brainstem appears normal. Diffusion-weighted images demonstrate no acute ischemic insults. No chronic ischemic insults. Normal intravascular flow voids are present. In this patient with this given history, scrutiny is given to the internal auditory canals and the cerebellopontine angle cisterns. On this standard protocol study, no masses or abnormal enhancement can be seen within these regions. Skull and face: Calvarial marrow is normal in signal. Orbits appear normal. Note is made of bilateral lens replacements. Sinuses: Sinuses and mastoids appear clear. IMPRESSION: No imaging explanation is found for this patient's presenting symptoms. Dictated by: Tyron Spencer M.D. on 06/10/2020 at 17:17 Approved by: Tyron Spencer M.D. on 06/10/2020 at 17:21
== END ==
PROVIDERS: PCP Family Medicine; Referring Provider Family Medicine; Visit Provider Family Medicine
DX: F80.0 Phonological disorder (principal)
CPT/HCPCS: 70553; A9579

== ENCOUNTER → 2020-07-14 15:29 | Outpatient (CLI) | payer MEDICARE, OTHER, SELFPAY ==
--- NOTE | 2020-07-14 | DI.CT.S_ITS ---
PROCEDURE: CT CERVICAL SPINE WO CON INDICATIONS: CERVICAL TECHNIQUE: Noncontrast 3 mm thick sections acquired from the skull base to the T4 level. Sagittal and coronal reformats were then constructed. For radiation dose reduction, the following was used: automated exposure control, adjustment of mA and/or kV according to patient size. COMPARISON: [facility] [place], CR, XR CERVICAL SPINE 2 OR 3 VIEWS, 07/09/2020, 16:42. [facility], CT, C-SPINE W/O CONTRAST, 12/23/2013, 7:24. FINDINGS: Image quality: Excellent. Bones: No acute appearing fractures or dislocations. There is a fracture of the anterior arch of C1, with a chronic appearance, with rounded fracture margins, as on series 2, image 20. Focal degenerative change can be seen within this region. This fracture is not seen on the 2013 examination. Anterior fixation hardware is seen, with screws at the C4 and C6 levels. There is bony bridging seen involving the C3-C4 level. Moderate disc space narrowing is seen at C6-C7 and at C7-T1. There is overall straightening of the normal cervical lordosis. Visualized superior ribs are intact. Soft tissues: Prevertebral soft tissues are normal in thickness. No paravertebral hematomas. No apical pneumothoraces. IMPRESSION: There is a chronic appearing fracture involving the anterior aspect of C1. No acute features are seen, although this fracture is new compared to 2014. Please correlate with known patient history and any outside imaging through the area. Unremarkable C4 through C6 postoperative hardware. Degenerative changes are seen throughout, including involving the C1-C2 interface anteriorly as well as partial fusion changes of C3-C4. Dictated by: Tyron Spencer M.D. on 07/14/2020 at 15:35 Approved by: Tyron Spencer M.D. on 07/14/2020 at 15:39
== END ==
PROVIDERS: PCP Family Medicine; Referring Provider Orthopaedic Surgery Orthopaedic Surgery of the Spine; Visit Provider Orthopaedic Surgery Orthopaedic Surgery of the Spine
DX: M48.52XA Collapsed vertebra, not elsewhere classified, cervical region, initial encounter for fracture (principal); M50.31 Other cervical disc degeneration, high cervical region
CPT/HCPCS: 72125

== ENCOUNTER 2020-12-16 12:15 | Emergency (ER) | payer OTHER, MEDICARE, SELFPAY ==
[2020-12-16] VITALS (11 sets, daily range): BP systolic 124–134; BP diastolic 58–73; PULSE 78–94; RESP 16–20; TEMP 36.7; O2SAT 96–99; BMI 25.0
--- NOTE | 2020-12-16 13:33 | DI.RAD.S_ITS ---
PROCEDURE: XR CHEST 2V INDICATIONS: shortness of breath TECHNIQUE: 2 views of the chest were acquired. COMPARISON: None. FINDINGS: Surgical changes and devices: None. Lungs and pleura: Lungs are clear. No pleural effusions or pneumothorax. Mediastinum: Mediastinal contours are normal. Heart size is normal. Bones and chest wall: No suspicious bony abnormalities. Soft tissues appear unremarkable. IMPRESSION: No acute process. Dictated by: Leisa Stovall M.D. on 12/16/2020 at 13:50 Approved by: Leisa Stovall M.D. on 12/16/2020 at 13:50
[2020-12-16 13:47] LABS: Add Manual Diff / Slide Review NO; Basophils Absolute Auto 100 /uL (0-100); Basophils Percent Auto 0.9 % (0-2); Eosinophils Absolute Auto 100 /uL (0-450); Eosinophils Percent Auto 0.7 % (2-4); Hematocrit 31.2 % (36-46); Hemoglobin 10.3 g/dL (12.0-16.0); Lymphocytes Absolute Auto 1400 /uL (1100-4500); Lymphocytes Percent Auto 14.5 % (25-40); Mean Corpuscular HGB Conc 33.1 % (30-36); Mean Corpuscular Hemoglobin 32.8 PG (26-34); Monocytes Absolute Auto 1100 /uL (0-900); Monocytes Percent Auto 10.8 % (3-14); Neutrophils Absolute Auto 7200 /uL (1500-7000); Neutrophils Percent Auto 73.1 % (50-75); Platelet Count 229 X10^3/uL (150-400); Red Blood Cell Count 3.16 X10^6/uL (4.0-5.2); Red Cell Distribution Width 13.5 % (11.6-14.8); White Blood Cell Count 9.9 X10^3/uL (4.5-11.0)
[2020-12-16 13:49] LABS: Alanine Aminotransferase 25 IU/L (<35); Albumin 4.1 g/dL (3.5-5.0); Albumin Globulin Ratio 1.5 (1.0-2.8); Alkaline Phosphatase 77 U/L (38-126); Aspartate Aminotransferase 53 IU/L (14-36); BUN Creatinine Ratio 11.9 (6-22); Bilirubin Total 0.4 mg/dL (0.2-1.3); Blood Urea Nitrogen 14 mg/dL (7-17); Calcium 9.7 mg/dL (8.4-10.2); Carbon Dioxide 24 mmol/L (22-32); Chloride 105 mmol/L (98-107); Globulin 2.7 g/dL (1.7-4.1); Glucose 114 mg/dL (80-110); HEMOLYSIS < 15 (0-50); Potassium 3.7 mmol/L (3.4-5.1); Sodium 135 mmol/L (137-145); Total Protein 6.8 g/dL (6.3-8.2)
[2020-12-16 13:50] LABS: Lactate (Lactic Acid) 0.7 mmol/L (0.7-2.1)
--- NOTE | 2020-12-16 14:38 | ED_ITS ---
HPI - SOB/Dyspnea General Chief Complaint: Shortness of Breath/Dyspnea Stated Complaint: cough, congested, throat raw Time Seen by Provider: 12/16/20 14:12 Source: patient and family Mode of arrival: Ambulatory History of Present Illness HPI Narrative: Patient is a 70-year-old female who presents with cough and shortness of breath that has progressively gotten worse over last for 5 days. She denies any productive cough she feels like her chest is tight it is worse when she walks. Her throat feels sore but she is able to swallow. She has not lost taste or smell. She has had both vaccinations for COVID in September. She denies chest pain or palpitations. She overall just does not feel well. She has weakness decreased appetite. She denies any orthopnea lower extremity edema. MD Complaint: shortness of breath Related Data Home Medications Medication Instructions Recorded Confirmed cholecalciferol (vitamin D3) 1,000 unit PO DAILY #0 06/22/16 12/01/20 [Vitamin D3] levothyroxine 0.137 mg PO QAM #0 04/05/17 12/01/20 [VIVISCAL EXTRA STR.] 1 tab PO DAILY #0 09/08/17 12/01/20 quinine sulfate 324 mg capsule 324 mg PO BEDTIME 10/02/18 12/01/20 cyclobenzaprine 10 mg PO PRN PRN 09/10/19 12/01/20 ipratropium bromide 1 spray INTRANASAL DIRECTED 09/10/19 12/01/20 valacyclovir 500 mg PO DAILY 09/10/19 12/01/20 buprenorphine 2 mg-naloxone 0.5 mg 1 film BUCCAL DAILY 01/10/20 12/01/20 sublingual film Previous Rx's Medication Instructions Recorded duloxetine 30 mg capsule,delayed 30 mg PO QDAY #90 cap 03/30/20 release duloxetine 60 mg capsule,delayed 60 mg PO QDAY #90 cap 03/30/20 release bupropion HCl 300 mg 24 hr tablet, 300 mg PO QAM #90 tab 08/28/20 extended release topiramate 100 mg tablet 100 mg PO BID #180 tab 10/12/20 dextroamphetamine-amphetamine 10 10 mg PO BID #60 tab 12/01/20 mg tablet trazodone 100 mg tablet See Rx Instructions PO BEDTIME PRN 12/01/20 #30 tab Allergies Allergy/AdvReac Type Severity Reaction Status Date / Time meperidine [From DEMEROL] Allergy Severe BREATHING Verified 12/01/20 15:49 COMPLICATIONS Penicillins [PENICILLINS] Allergy Intermediate RASH Verified 12/01/20 15:49 Review of Systems Review of Systems ROS Unobtainable: All systems reviewed & are unremarkable except as noted in HPI and below Constitutional Constitutional: Denies chills, Denies fever(s), Denies lethargy and Denies weakness ENT Ears, Nose, Mouth, and Throat: Reports as per HPI and Reports sore throat Cardiovascular Cardiovascular: Denies chest pain, Denies syncope, Denies irregular heart rhythm, Denies lightheadedness, Denies palpitations, Reports dyspnea, Reports dyspnea on exertion and Denies orthopnea Respiratory Respiratory: Reports chest congestion, Reports cough, Reports pain with cough, Reports dyspnea and Reports dyspnea on exertion Gastrointestinal Gastrointestinal: Denies abdominal pain, Denies change in bowel habits, Reports diarrhea (History of IBS but this is abnormal. Diarrhea today), Denies nausea and Denies vomiting Musculoskeletal Musculoskeletal: Denies back pain and Denies muscle cramps Integumentary/Breasts Skin/Breast: Denies pruritus, Denies erythema, Denies rash and Denies wounds Neurologic Neurologic: Denies abnormal movements, Denies syncope and Denies weakness Endocrine Endocrine: Denies palpitations Patient History Medical History ADHD Anxiety Chronic back pain Depression Hypothyroid Injury of common bile duct during operative procedure Major depressive disorder, recurrent episode, moderate with anxious distress Migraines Surgical History H/O abdominoplasty H/O bilateral breast implants History of cholecystectomy History of Kym-en-Y gastric bypass History of tonsillectomy S/P SELMA-BSO Social History household members: spouse occupational status: employed Smoking Status: Former smoker alcohol intake: never substance use type: does not use Smoking Status: Former smoker alcohol intake frequency: 0-2 drinks per day Substance Use Type: does not use Exam Initial Vital Signs Initial Vital Signs: Vital Signs Pulse Rate 94 H 12/16/20 12:20 Respiratory Rate 16 12/16/20 12:20 Blood Pressure 134/66 12/16/20 12:20 Pulse Oximetry 96 12/16/20 12:20 GENERAL: Alert 70-year-old female appears to not feel well and in no acute dist ress. HEENT: Head atraumatic,EOMI, pupils reactive, face symmetric, moist mucous membranes PHARYNX: No erythema, no tonsillar exudate, no cervical lymphadenopathy CARDIOVASCULAR: Regular rate and rhythm without murmurs, rubs or gallops. RESPIRATORY: Breath sounds equal bilaterally, no wheezes rales or rhonchi. Speaks in full sentences without difficulty ABDOMEN: Soft, nontender. Normoactive bowel sounds all 4 quadrants. No guarding or rebound. EXTREMITIES: Normal range of motion, no clubbing or edema. Neurovascularly intact NEUROLOGICAL: Alert and oriented x4.Normal gait and speech. Cranial nerves II through XII grossly intact. SKIN: Warm, dry, no laceration, no petechiae, no rashes or lesions. Course Orders Ordered: ED Orders 12/16/20 12:40 EKG-12 Lead Routine 12/16/20 12:52 NT-proBNP (BNP-Adult 18+) Stat Procalcitonin Stat Troponin & CK Cardiac Panel Stat 12/16/20 12:57 Complete Blood Count AUTO DIFF Stat Comprehensive Metabolic Panel Stat Lactate (Lactic Acid) Stat 12/16/20 13:33 XR chest 2V Stat Measure peak expiratory flow ONCE RT Consult Eval and Treat Now Vital Signs Vital signs: Vital Signs - 8 hr 12/16/20 12:20 12/16/20 12:52 12/16/20 12:57 Temperature Pulse Rate 94 H 82 87 Respiratory Rate 16 Blood Pressure 134/66 129/73 Pulse Oximetry 96 98 98 12/16/20 13:00 12/16/20 13:30 12/16/20 13:36 Temperature 98.1 F Pulse Rate 78 91 H Respiratory Rate Blood Pressure Pulse Oximetry 97 97 12/16/20 14:00 12/16/20 14:30 12/16/20 14:45 Temperature Pulse Rate 85 88 87 Respiratory Rate Blood Pressure 124/58 L Pulse Oximetry 97 99 99 12/16/20 15:55 12/16/20 15:56 Temperature Pulse Rate 87 Respiratory Rate 20 Blood Pressure 125/72 Pulse Oximetry 99 99 MDM - SOB/Dyspnea Lab Data Attestation: I reviewed the patient's lab results. Result diagrams: 12/16/20 12:57 12/16/20 12:57 Labs: Lab Results 12/16/20 12/16/20 12/16/20 Range/Units 12:52 12:57 12:57 WBC 9.9 (4.5-11.0) X10^3/uL RBC 3.16 L (4.0-5.2) X10^6/uL Hgb 10.3 L (12.0-16.0) g/dL Hct 31.2 L (36-46) % MCV 99.0 (80-100) fL MCH 32.8 (26-34) PG MCHC 33.1 (30-36) % RDW 13.5 (11.6-14.8) % Plt Count 229 (150-400) X10^3/uL Neut % (Auto) 73.1 (50-75) % Lymph % (Auto) 14.5 L (25-40) % [place] % (Auto) 10.8 (3-14) % Eos % (Auto) 0.7 L (2-4) % Baso % (Auto) 0.9 (0-2) % Neut # (Auto) 7200 H (4128-2498) /uL Lymph # (Auto) 1400 (3943-9853) /uL [place] # (Auto) 1100 H (0-900) /uL Eos # (Auto) 100 (0-450) /uL Baso # (Auto) 100 (0-100) /uL Sodium 135 L (137-145) mmol/L Potassium 3.7 (3.4-5.1) mmol/L Chloride 105 (98-107) mmol/L Carbon Dioxide 24 (22-32) mmol/L BUN 14 (7-17) mg/dL Creatinine 1.18 H (0.52-1.04) mg/dL Estimated GFR 45.0 L (>60) mL/min BUN/Creatinine Ratio 11.9 (6-22) Glucose 114 H (80-110) mg/dL Lactate (0.7-2.1) mmol/L Calcium 9.7 (8.4-10.2) mg/dL Total Bilirubin 0.4 (0.2-1.3) mg/dL AST 53 H (14-36) IU/L ALT 25 (<35) IU/L Alkaline Phosphatase 77 (38-126) U/L Total Creatine Kinase 145 H (30-135) U/L CK-MB (CK-2) 2.37 (<2.37) ng/mL CK-MB (CK-2) Rel Index 1.6 (1.5-5.0) % Troponin I < 0.012 (0.01-0.034) ng/mL NT-Pro-B Natriuret Pep 51 (<125) pg/mL Total Protein 6.8 (6.3-8.2) g/dL Albumin 4.1 (3.5-5.0) g/dL Globulin 2.7 (1.7-4.1) g/dL Albumin/Globulin Ratio 1.5 (1.0-2.8) Procalcitonin 0.08 (<0.5) ng/mL 12/16/20 Range/Units 12:57 WBC (4.5-11.0) X10^3/uL RBC (4.0-5.2) X10^6/uL Hgb (12.0-16.0) g/dL Hct (36-46) % MCV (80-100) fL MCH (26-34) PG MCHC (30-36) % RDW (11.6-14.8) % Plt Count (150-400) X10^3/uL Neut % (Auto) (50-75) % Lymph % (Auto) (25-40) % [place] % (Auto) (3-14) % Eos % (Auto) (2-4) % Baso % (Auto) (0-2) % Neut # (Auto) (9323-7596) /uL Lymph # (Auto) (8492-2484) /uL [place] # (Auto) (0-900) /uL Eos # (Auto) (0-450) /uL Baso # (Auto) (0-100) /uL Sodium (137-145) mmol/L Potassium (3.4-5.1) mmol/L Chloride (98-107) mmol/L Carbon Dioxide (22-32) mmol/L BUN (7-17) mg/dL Creatinine (0.52-1.04) mg/dL Estimated GFR (>60) mL/min BUN/Creatinine Ratio (6-22) Glucose (80-110) mg/dL Lactate 0.7 (0.7-2.1) mmol/L Calcium (8.4-10.2) mg/dL Total Bilirubin (0.2-1.3) mg/dL AST (14-36) IU/L ALT (<35) IU/L Alkaline Phosphatase (38-126) U/L Total Creatine Kinase (30-135) U/L CK-MB (CK-2) (<2.37) ng/mL CK-MB (CK-2) Rel Index (1.5-5.0) % Troponin I (0.01-0.034) ng/mL NT-Pro-B Natriuret Pep (<125) pg/mL Total Protein (6.3-8.2) g/dL Albumin (3.5-5.0) g/dL Globulin (1.7-4.1) g/dL Albumin/Globulin Ratio (1.0-2.8) Procalcitonin (<0.5) ng/mL Urine Dip Bedside Urine Glucose Negative Bedside Urine Bilirubin - Negative Bedside Urine Ketone - Negative Urine Specific [place] 1.025 Bedside Urine Occult Blood - Negative Bedside Urine pH 6 Bedside Urine Protein - Negative Bedside Urine Urobilinogen - Negative Bedside Urine Nitrite - Negative Bedside Urine Leukocytes - Negative Esterase Imaging Data Chest x-ray: Radiologist's Impression: PROCEDURE: XR CHEST 2V INDICATIONS: shortness of breath TECHNIQUE: 2 views of the chest were acquired. COMPARISON: None. FINDINGS: Surgical changes and devices: None. Lungs and pleura: Lungs are clear. No pleural effusions or pneumothorax. Mediastinum: Mediastinal contours are normal. Heart size is normal. Bones and chest wall: No suspicious bony abnormalities. Soft tissues appear unremarkable. IMPRESSION: No acute process. Dictated by: Leisa Stovall M.D. on 12/16/2020 at 13:50 ECG Data Attestation: I personally reviewed and interpreted this ECG as follows: Prior ECG tracings: not available for review Interpretation: Sinus rhythm rate [address] changes no T-wave inversions no priors to compare MDM Narrative Medical decision making narrative: Patient has symptoms consistent with upper respiratory virus. X-ray does not show any pneumonia she has no leukocytosis. The same no antibiotics are indicated. She overall appears well, she has an obvious cough, consistent with viral syndrome. Discussed results with patient and recommend supportive care techniques at home. Discharge Plan Departure Patient Disposition: Home Clinical Impression: Acute upper respiratory infection Instructions: DI for Viral Upper Respiratory Infection -- Adult Activity Restrictions/Additional Instructions: *You have been diagnosed with upper respiratory infection *What to do: At this time no antibiotics are indicated do not have pneumonia. This is likely a viral syndrome which should resolve on its own. Recommend increasing fluid intake Tylenol or ibuprofen as directed if needed for pain *Continue to take medications as directed May try Mucinex [id number] to see if it helps with congestion *Follow up with your primary care provider in 2-3 days *Return to ER if you should have increasing shortness of breath, chest pain, palpitations, confusion or any new, worsening or concerning symptoms Prescriptions: No Action quinine sulfate 324 mg capsule 324 mg PO BEDTIME RF: 0 trazodone 100 mg tablet See Rx Instructions PO BEDTIME PRN (Reason: insomnia) Qty: 30 RF: 1 dextroamphetamine-amphetamine [Adderall] 10 mg tablet 10 mg PO BID Qty: 60 RF: 0 buprenorphine-naloxone [Suboxone] 2-0.5 mg film 1 film BUCCAL DAILY RF: 0 bupropion HCl 300 mg tablet extended release 24 hr 300 mg PO QAM Qty: 90 RF: 1 cholecalciferol (vitamin D3) [Vitamin D3] 1,000 unit Capsule 1,000 unit PO DAILY Qty: 0 RF: 0 levothyroxine 137 MCG tablet 0.137 mg PO QAM Qty: 0 RF: 0 [VIVISCAL EXTRA STR.] 1 tab PO DAILY Qty: 0 RF: 0 duloxetine [Cymbalta] 30 mg capsule,delayed release(DR/EC) 30 mg PO QDAY Qty: 90 RF: 3 duloxetine [Cymbalta] 60 mg capsule,delayed release(DR/EC) 60 mg PO QDAY Qty: 90 RF: 3 topiramate 100 mg tablet 100 mg PO BID Qty: 180 RF: 0 valacyclovir 500 mg tablet 500 mg PO DAILY RF: 0 ipratropium bromide 42 mcg (0.06 %) spray,non-aerosol 1 spray INTRANASAL DIRECTED RF: 0 cyclobenzaprine 10 mg tablet 10 mg PO PRN PRN (Reason: Spasms) RF: 0 Referrals: Shaina Boyd DO [Primary Care Provider] -
[2020-12-16 15:26] LABS: Creatine Kinase 145 U/L (30-135)
[2020-12-16 15:35] LABS: NT-proBNP (BNP-Adult 18+) 51 pg/mL (<125); Troponin I < 0.012 ng/mL (0.01-0.034)
[2020-12-16 15:39] LABS: Procalcitonin 0.08 ng/mL (<0.5)
[2020-12-16 15:41] LABS: CKMB % Relative Index 1.6 % (1.5-5.0); Creatine Kinase MB 2.37 ng/mL (<2.37)
== END 2020-12-16 16:11 | disposition home or self-care (01) ==
PROVIDERS: Emergency Provider Emergency Medicine; PCP Family Medicine
DX: J06.9 Acute upper respiratory infection, unspecified (principal)
CPT/HCPCS: 36415; 71046; 80053; 81003; 82550; 82553; 83605; 83880; 84145; 84484; 85025; 93005; 99283; 99284

== ENCOUNTER 2021-04-29 15:06 | Emergency (ER) | payer OTHER, MEDICARE, SELFPAY ==
[2021-04-29 15:50] VITALS: BP 126/67; PULSE 81; RESP 16; TEMP 36.8; O2SAT 99; BMI 26.4
[2021-04-29 18:06] LABS: Appearance Urine UA SL CLOUDY; Bilirubin Urine UA NEGATIVE (NEGATIVE); Color Urine UA YELLOW; Glucose Urine UA NEGATIVE (Negative); Ketones Urine UA NEGATIVE (NEGATIVE); Leukocyte Esterase Urine UA TRACE (NEGATIVE); Nitrite Urine UA POSITIVE (Negative); Occult Blood Urine UA TRACE-LYSED (Negative); Protein Urine UA TRACE (Negative)
[2021-04-29 18:22] LABS: Bacteria Urine Many (>30); Culture Indicated Urine Specimen Cultured; RBC Urine 0-1/HPF (0-5/HPF); Squamous Epithelial Cell Urine 1-5 /HPF (0-5/HPF); WBC Urine 10-30/HPF (0-5/HPF)
--- NOTE | 2021-04-29 18:36 | PC.NURSE ---
pt given icepack for headache
--- NOTE | 2021-04-29 19:26 | ED_ITS ---
HPI - Headache General Chief Complaint: Headache Stated Complaint: migraine, stomach pain Time Seen by Provider: 04/29/21 18:06 History of Present Illness HPI Narrative: 70F former smoker with history of headaches presents with the chief complaint of a severe frontal headache for the past few days. She states she has a longstanding history of headaches and this started like her typical headaches which have been diagnosed as clusters and migraines by Neurology at [facility]. She states it has been gradually worsening and frontal, worsened by bright lights, loud noise and exertion. She has had nausea but denies vomiting. She denies focal neurologic findings such as blurred vision, trouble speech or extremity numbness, weakness or tingling. She denies any fever chills. She has no pain in her neck. She denies the use of blood thinners. She has had no recent trauma or injury. She took her medications at home including Topamax with minimal relief Related Data Home Medications Medication Instructions Recorded Confirmed cholecalciferol (vitamin D3) 25 1,000 unit PO DAILY #0 06/22/16 03/05/21 mcg (1,000 unit) capsule (Vitamin D3) levothyroxine 137 mcg tablet 0.137 mg PO QAM #0 04/05/17 03/05/21 quinine sulfate 324 mg capsule 324 mg PO BEDTIME 10/02/18 03/05/21 cyclobenzaprine 10 mg tablet 10 mg PO PRN PRN 09/10/19 03/05/21 ipratropium bromide 42 mcg (0.06 1 spray INTRANASAL DIRECTED 09/10/19 03/05/21 %) nasal spray valacyclovir 500 mg tablet 500 mg PO DAILY 09/10/19 03/05/21 buprenorphine 2 mg-naloxone 0.5 mg 1 film BUCCAL DAILY 01/10/20 03/05/21 sublingual film (Suboxone) vitamin E (dl, acetate) 400 unit 45 mg PO DAILY 03/05/21 03/05/21 capsule Previous Rx's Medication Instructions Recorded topiramate 100 mg tablet 100 mg PO BID #180 tab 10/12/20 hydroxyzine HCl 25 mg tablet 25 mg PO QID PRN #90 tab 03/03/21 bupropion HCl 300 mg 24 hr tablet, 300 mg PO QAM #90 tab 03/05/21 extended release dextroamphetamine-amphetamine 10 10 mg PO BID #60 tab 03/05/21 mg tablet (Adderall) duloxetine 30 mg capsule,delayed 30 mg PO QDAY #90 cap 03/05/21 release (Cymbalta) duloxetine 60 mg capsule,delayed 60 mg PO QDAY #90 cap 03/05/21 release (Cymbalta) prazosin 1 mg capsule 1 mg PO BEDTIME #30 cap 03/05/21 trazodone 100 mg tablet See Rx Instructions .ROUTE 04/21/21 .COMPLEX #30 tab sulfamethoxazole 800 1 tab PO BID 5 Days #10 tab 04/29/21 mg-trimethoprim 160 mg tablet (Bactrim DS) Allergies Allergy/AdvReac Type Severity Reaction Status Date / Time meperidine [From DEMEROL] Allergy Severe BREATHING Verified 03/05/21 11:06 COMPLICATIONS Penicillins [PENICILLINS] Allergy Intermediate RASH Verified 03/05/21 11:06 Review of Systems Review of Systems Narrative: GENERAL: Denies chills, fatigue, malaise, fever, sweats. HEENT: Denies sinus pain, ear pain, sore throat, difficulty swallowing, dizziness. RESPIRATORY: Denies dyspnea, cough, wheezing, hemoptysis, sputum. CARDIOVASCULAR: Denies chest pain, palpitations, orthopnea, edema, GASTROINTESTINAL: Denies nausea, vomiting, abdominal pain, diarrhea, constipation, melena. : Denies dysuria, frequency, incontinence, hematuria, urinary retention. MUSCULOSKELETAL: denies weakness, joint pain, or bony pain SKIN: Denies rash, skin lesions, or other NEUROLOGIC: See HPI PSYCHIATRIC: No concerning psychosocial issues. 12 point review of systems is negative except for those stated above Patient History Medical History ADHD Anxiety Chronic back pain Depression Hypothyroid Injury of common bile duct during operative procedure Major depressive disorder, recurrent episode, moderate with anxious distress Migraines Surgical History H/O abdominoplasty H/O bilateral breast implants History of cholecystectomy History of Kym-en-Y gastric bypass History of tonsillectomy S/P SELMA-BSO Social History household members: spouse occupational status: employed Smoking Status: Former smoker alcohol intake: never substance use type: does not use Smoking Status: Former smoker alcohol intake frequency: 0-2 drinks per day Substance Use Type: does not use Exam Narrative Exam Narrative: GENERAL: [70] year old patient appears stated age. Well- developed patient, in mild distress. Resting in a dark room with a towel covering her eyes, clearly uncomfortable HEAD: Atraumatic. Normocephalic. EYES: Pupils equal round and reactive. Extraocular motions intact. No scleral icterus. No injection or drainage. ENT: Nose without bleeding, purulent drainage. Throat without erythema, tonsillar hypertrophy or exudate. Airway patent. NECK: Trachea midline. Non tender CARDIOVASCULAR: Regular rate and rhythm without murmurs, gallops, or rubs. RESPIRATORY: Clear to auscultation. Breath sounds equal bilaterally. No wheezes, rales, or rhonchi. GASTROINTESTINAL: Abdomen soft, non-tender, nondistended. EXTREMITIES: No edema or joint tenderness. BACK: Nontender without deformity or crepitance. No flank tenderness. NEURO: AOx3. SKIN: No rash or erythema of visible areas NIH Stroke Scale 1a. LOC: Patient is alert and keenly responsive (0) 1b. LOC Questions: Patient answers both LOC questions accurately (0) 1c. LOC Commands: Patient performs both tasks correctly (0) 2. Best Gaze: Normal (0) 3. Visual: No visual loss (0) 4. Facial palsy: Normal symmetrical movements (0) 5. Motor arm: No drift (0) 6. Motor leg: No drift (0) 7. Limb ataxia: Absent (0) 8. Sensory: Normal (0) 9. Best language: No aphasia; normal (0) 10. Dysarthria: Normal (0) 11. Extinction and inattention: No abnormality (0) NIHSS: 0 Initial Vital Signs Initial Vital Signs: Vital Signs Temperature 98.3 F 04/29/21 15:50 Pulse Rate 81 04/29/21 15:50 Respiratory Rate 16 04/29/21 15:50 Blood Pressure 126/67 04/29/21 15:50 Pulse Oximetry 99 04/29/21 15:50 Course Orders Ordered: Discontinued Medications Dexamethasone (Dexamethasone 10 Mg/Ml Vial) 10 mg IV NOW ONE Stop: 04/29/21 19:34 Last Admin: 04/29/21 19:51 Dose: 10 mg Documented by: KBROTEM Diphenhydramine HCl (Diphenhydramine 50 Mg/Ml Vial) 25 mg IV NOW ONE Stop: 04/29/21 19:34 Last Admin: 04/29/21 19:52 Dose: 25 mg Documented by: ANITA Sodium Chloride (Normal Saline 0.9%) 1,000 mls @ 1,000 mls/hr IV BOLUS ONE Stop: 04/29/21 20:32 Last Infusion: 04/29/21 21:02 Dose: 0 mls/hr Documented by: Admin: 04/29/21 19:51 Dose: 1,000 mls/hr Documented by: ANITA Ketorolac Tromethamine (Ketorolac 30 Mg/Ml Vial) 15 mg IV NOW ONE Stop: 04/29/21 19:34 Last Admin: 04/29/21 19:53 Dose: 15 mg Documented by: ANITA Metoclopramide HCl (Metoclopramide 10 Mg/2 Ml Inj) 10 mg IV NOW ONE Stop: 04/29/21 19:34 Last Admin: 04/29/21 19:52 Dose: 10 mg Documented by: ANITA Trimethoprim/Sulfamethoxazole (Trimeth/Sulfa 160/800 Prepack) 1 bottle MISC SEEINSTR ONE Stop: 04/29/21 20:53 Trimethoprim/Sulfamethoxazole (Trimeth/Sulfa 160/800 (Ds) Tablet) 1 tab PO NOW ONE Stop: 04/29/21 21:05 Last Admin: 04/29/21 21:07 Dose: Not Given Documented by: REYNALDO Reevaluation(s) Reevaluation #1: PATIENT'S HEADACHE NEARLY COMPLETELY GONE. She is feeling much better requesting discharge Vital Signs Vital signs: Vital Signs - 8 hr 04/29/21 15:50 Temperature 98.3 F Pulse Rate 81 Respiratory Rate 16 Blood Pressure 126/67 Pulse Oximetry 99 MDM - Headache Lab Data Labs: Lab Results 04/29/21 Range/Units 17:54 Urine Color Yellow Urine Appearance Sl cloudy Urine pH 6.0 (4.5-8.0) Ur Specific [place] 1.020 (1.000-1.035) Urine Protein Trace H (Negative) Urine Glucose (UA) Negative (Negative) g/dL Urine Ketones Negative (NEGATIVE) Urine Occult Blood Trace-lysed (Negative) Urine Nitrate Positive H (Negative) Urine Bilirubin Negative (NEGATIVE) Urine Urobilinogen 1.0 (0.2) E.U./dL Ur Leukocyte Esterase Trace H (NEGATIVE) Urine RBC 0-1/hpf (0-5/HPF) Urine WBC 10-30/hpf H (0-5/HPF) Ur Squamous Epith Cells 1-5 /hpf (0-5/HPF) Urine Bacteria Many (>30) H (None) Ur Culture Indicated? Specimen cultured Point of Care Testing Glucose POC 106 MDM Narrative Medical decision making narrative: Headache considerations include, but not limited to: Subarachnoid hemorrhage, but unlikely as patient denies sudden onset of pain, not worst of life, or neck pain Meningitis considered, but thought unlikely given lack of Brudzinski's, Kernig's sign, altered mental status or fever Giant cell arteritis considered, but thought unlikely given lack of unilateral findings, pain in [employer], vision change HTN Emergency considered, but thought unlikely given normal vitals Other serious diagnoses considered unlikely given lack of red flag findings such as sudden onset, increasing frequency, immunocompromise, systemic signs (fever, chills, stiff neck, or rash), focal neurologic findings, trauma, blood thinners, etc. Discharge Plan Departure Patient Disposition: Home Clinical Impression: Acute UTI Migraine Qualifiers: Migraine type: without aura Status migrainosus presence: without status migrainosus Intractability: not intractable Qualified Code(s): G43.009 - Migraine without aura, not intractable, without status migrainosus Activity Restrictions/Additional Instructions: *You have been diagnosed with [migraine-type headache and urinary tract infection] *What to do: *Please continue to take your regular medications as directed. [ x] New medication prescriptions sent to your pharmacy: [[facility] in [place]] [ ] New medication written as a paper prescription [ ] No new medications given *Please follow up with your primary care provider in 2-3 days, call for an appointment. Let them know you were seen in the Emergency Department and that we ask that you be seen in follow up. We will electronically transmit a record of today's note if your PCP is in our system *If you do not have a primary care provider please contact the [facility] Resource line at [phone]. They will ask some questions about your medical history and help get you set up with a doctor in the community. *Return to Emergency Department if you should have any new, worsening or concerning symptoms, such as [fever greater than 101 F, shaking chills, worsening pain, persistent vomiting or other bothersome symptoms] Prescriptions: New sulfamethoxazole-trimethoprim [Bactrim DS] 800-160 mg tablet 1 tab PO BID 5 Days Qty: 10 RF: 0 No Action quinine sulfate 324 mg capsule 324 mg PO BEDTIME RF: 0 buprenorphine-naloxone [Suboxone] 2-0.5 mg film 1 film BUCCAL DAILY RF: 0 vitamin E (dl, acetate) 400 unit capsule 45 mg PO DAILY RF: 0 prazosin 1 mg capsule 1 mg PO BEDTIME Qty: 30 RF: 1 bupropion HCl 300 mg tablet extended release 24 hr 300 mg PO QAM Qty: 90 RF: 1 dextroamphetamine-amphetamine [Adderall] 10 mg tablet 10 mg PO BID Qty: 60 RF: 0 duloxetine [Cymbalta] 30 mg capsule,delayed release(DR/EC) 30 mg PO QDAY Qty: 90 RF: 3 duloxetine [Cymbalta] 60 mg capsule,delayed release(DR/EC) 60 mg PO QDAY Qty: 90 RF: 3 cholecalciferol (vitamin D3) [Vitamin D3] 1,000 unit Capsule 1,000 unit PO DAILY Qty: 0 RF: 0 levothyroxine 137 MCG tablet 0.137 mg PO QAM Qty: 0 RF: 0 topiramate 100 mg tablet 100 mg PO BID Qty: 180 RF: 0 hydroxyzine HCl 25 mg tablet 25 mg PO QID PRN (Reason: anxiety) Qty: 90 RF: 1 trazodone 100 mg tablet See Rx Instructions .ROUTE .COMPLEX Qty: 30 RF: 0 valacyclovir 500 mg tablet 500 mg PO DAILY RF: 0 ipratropium bromide 42 mcg (0.06 %) spray,non-aerosol 1 spray INTRANASAL DIRECTED RF: 0 cyclobenzaprine 10 mg tablet 10 mg PO PRN PRN (Reason: Spasms) RF: 0 Referrals: Shaina Boyd DO [Primary Care Provider] -
[2021-04-29] MEDS: DEXAMETHASONE 10 MG/ML VIAL IV (19:51)
[2021-04-29] MEDS: SODIUM CHLORIDE 0.9% 1,000 ML 1000 ML IV (19:51)
[2021-04-29] MEDS: diphenhydrAMINE 50 MG/ML VIAL 25 MG IV (19:52)
[2021-04-29] MEDS: METOCLOPRAMIDE 10 MG/2 ML INJ IV (19:52)
[2021-04-29] MEDS: KETOROLAC 30 MG/ML VIAL 15 MG IV (19:53)
[2021-04-29 21:06] VITALS: BP 129/79; PULSE 67; RESP 18; O2SAT 97
== END 2021-04-29 21:17 | disposition home or self-care (01) ==
PROVIDERS: Emergency Medicine; Emergency Provider Emergency Medicine; PCP Family Medicine
DX: G43.009 Migraine without aura, not intractable, without status migrainosus (principal); N39.0 Urinary tract infection, site not specified
CPT/HCPCS: 81001; 82962; 87077; 87086; 87186; 96361; 96374; 96375; 99283; 99284; J1100; J1200; J1885; J2765

== ENCOUNTER → 2021-06-02 14:07 | Outpatient (CLI) | payer OTHER, MEDICARE, SELFPAY ==
--- NOTE | 2021-06-02 | DI.MRI.S_ITS ---
PROCEDURE: MR LUMBAR SPINE WO CON INDICATIONS: Radiculopathy, lumbar region TECHNIQUE: Noncontrast sagittal T1 spin echo and T2 fast echo, sagittal STIR, axial T1 and T2 fast spin echo through the lumbar spine. In cases with scoliosis, additional coronal T2 fast spin echo may be performed. COMPARISON: [facility], MR, L-SPINE WITHOUT CONTRAST, 09/14/2010, 13:25. [facility], CR, XR LUMBAR SPINE 2 OR 3 VIEWS, 05/11/2021, 15:59. FINDINGS: Image quality: Excellent. Alignment and Curvature: There is minimal retrolisthesis seen at the L2-L3 level. Bone Marrow: Marrow is of normal overall signal. No acute vertebral body compression fractures. Spinal Cord: Conus medullaris terminates at the L1 level. Visualized cord demonstrates normal signal and size. Paraspinous Soft Tissues: No paravertebral masses. T12-L1: The disc height is well-preserved. Loss of disc signal is seen at this level. Mild generalized disc bulge is seen. Mild to moderate facet hypertrophy is seen. There is [id number] left-sided and no right-sided neural foraminal narrowing seen. The central canal is widely patent. When comparison is made with the prior images, these findings are similar. L1-L2: The disc height is well-preserved. Loss of disc signal is seen at this level. Mild generalized disc bulge is seen. At least moderate facet hypertrophy is seen. Associated hypertrophy of the ligamentum flavum can be seen. There is moderate bilateral neural foraminal narrowing seen, left worse than right. Moderate central canal narrowing is seen. When comparison is made with the prior images, these findings are similar. L2-L3: The disc height is well-preserved. Loss of disc signal is seen at this level. At least moderate disc bulge can be seen, which is eccentric to the right. Moderate to prominent facet hypertrophy is seen at this level. Associated hypertrophy of the ligamentum flavum can be seen. There is moderate to severe bilateral neural foraminal narrowing seen, left worse than right. There is a degree of compression seen upon the exiting nerve roots. Moderate to severe central canal narrowing is seen, as on series 5, image 15. These imaging findings have progressed compared to the prior study. L3-L4: The disc height is well-preserved. Loss of disc signal is seen at this level. Moderate loss of disc height is seen. Loss of disc signal is seen. Prominent facet hypertrophy is seen. Associated hypertrophy of the ligamentum flavum can be seen. There is moderate to severe bilateral neural foraminal narrowing seen at this level, right worse than left. There is a degree of compression seen upon the exiting nerve roots. Moderate to severe central canal narrowing is seen. These degenerative changes are worse than the prior MRI. L4-L5: The disc height is well-preserved. Loss of disc signal is seen at this level. Moderate disc bulge is seen, which is eccentric to the left side. There is a disc protrusion seen involving the left foraminal region, as on series 6, image 10. Prominent facet hypertrophy is seen, right worse than left. Associated hypertrophy of the ligamentum flavum can be seen. There is moderate to severe bilateral neural foraminal narrowing seen, left worse than right. There is moderate to severe central canal narrowing seen, as on series 6, image 10. These degenerative changes are clearly worse than in 2010. L5-S1: The disc height is well-preserved. Loss of disc signal is seen at this level. Mild generalized disc bulge is seen. Prominent facet hypertrophy is seen at this level. There is moderate bilateral neural foraminal narrowing seen, left worse than right. No significant central canal narrowing is seen at this level. These degenerative changes are slightly worse than in 2010. IMPRESSION: Multiple levels of prominent lumbar spine degenerative change can be seen. The degenerative changes are worse than in 2010. Several sites of significant neural foraminal narrowing can be seen, with associated exiting nerve root compression. Moderate to severe central canal narrowing can be seen at L2-L3, L3-L4, and L4-L5. Dictated by: Tyron Spencer M.D. on 06/02/2021 at 15:58 Approved by: Tyron Spencer M.D. on 06/02/2021 at 16:03
== END ==
PROVIDERS: PCP Family Medicine; Referring Provider Orthopaedic Surgery Orthopaedic Surgery of the Spine; Visit Provider Orthopaedic Surgery Orthopaedic Surgery of the Spine
DX: M47.26 Other spondylosis with radiculopathy, lumbar region (principal); M47.27 Other spondylosis with radiculopathy, lumbosacral region; M48.061 Spinal stenosis, lumbar region without neurogenic claudication; M48.07 Spinal stenosis, lumbosacral region
CPT/HCPCS: 72148

== ENCOUNTER → 2021-06-29 10:19 | Outpatient (CLI) | payer MEDICARE, SELFPAY | PROVIDERS: PCP Family Medicine; Referring Provider Orthopaedic Surgery Orthopaedic Surgery of the Spine; Visit Provider Orthopaedic Surgery Orthopaedic Surgery of the Spine | DX: Z01.818 Encounter for other preprocedural examination (principal); Z01.812 Encounter for preprocedural laboratory examination; R73.9 Hyperglycemia, unspecified | CPT/HCPCS: 93005; 93010 ==

== ENCOUNTER → 2021-07-07 11:41 | Outpatient (CLI) | payer MEDICARE, SELFPAY ==
--- NOTE | 2021-07-07 | DI.CT.S_ITS ---
PROCEDURE: CT LUMBAR SPINE WO CON INDICATIONS: Spinal stenosis, lumbar region with neurogenic cla TECHNIQUE: Noncontrast 3 mm thick sections acquired from the T12 level to the sacrum. Sagittal and coronal reformats were constructed. For radiation dose reduction, the following was used: automated exposure control. COMPARISON: [facility], MR, MR LUMBAR SPINE WO CON, 06/02/2021, 14:23. FINDINGS: Image quality: Excellent. Bones: There is mild L2-L3 retrolisthesis. There is mild L4-L5 anterolisthesis. No acute vertebral body compression fractures. No suspicious lytic or blastic bony lesions. No pars defects. T12-L1: Disc height is normal. Mild bilateral facet hypertrophy. No central stenosis. No neural foraminal narrowing. No neural compression. L1-L2: Disc height is normal. Mild, diffuse disc bulge. Mild bilateral facet hypertrophy. Mild narrowing of the central canal. No neural foraminal narrowing. No neural compression. L2-L3: Disc height is normal. Mild, diffuse disc bulge. Moderate bilateral facet hypertrophy. Moderate to severe narrowing of the central canal. Moderate to severe bilateral neural foraminal narrowing with slight compression of the exiting L2 nerve roots.. L3-L4: Disc height is normal. Mild, diffuse disc bulge. Severe bilateral facet hypertrophy. Moderate ligamentum flavum hypertrophy. Severe narrowing of the central canal with probable compression of the nerve roots of the cauda equina. Moderate to severe bilateral neural foraminal narrowing with slight compression of the exiting L3 nerve roots. L4-L5: Disc height is normal. Mild, diffuse disc bulge. Severe right moderate left facet hypertrophy. Moderate ligamentum flavum hypertrophy. Severe narrowing of the central canal with probable compression of the traversing nerve roots of the cauda equina. Moderate to severe bilateral neural foraminal narrowing with slight compression of the exiting L4 nerve roots. L5-S1: Disc height is normal. Mild, diffuse disc bulge. Moderate bilateral facet hypertrophy. No central stenosis. Moderate bilateral neural foraminal narrowing. No neural compression. Soft tissues: No retroperitoneal masses or hematomas. Visualized aorta is normal in caliber. Gallbladder is surgically absent. IMPRESSION: 1. Multilevel degenerative disc disease. 2. Multilevel facet arthropathy. 3. Severe L3-L4 and L4-L5 central canal narrowing with probable compression of the traversing nerve roots of the cauda equina. Moderate to severe L2-L3 central canal narrowing. 4. Moderate to severe bilateral L2-L3, L3-L4 and L4-L5 neural foraminal narrowing with slight compression of the exiting bilateral L2, L3 and L4 nerve roots. Dictated by: Sakina Byrne MD, PhD on 07/07/2021 at 15:52 Approved by: Sakina Byrne MD, PhD on 07/07/2021 at 15:57
== END ==
PROVIDERS: PCP Family Medicine; Referring Provider Orthopaedic Surgery Orthopaedic Surgery of the Spine; Visit Provider Orthopaedic Surgery Orthopaedic Surgery of the Spine
DX: M48.062 Spinal stenosis, lumbar region with neurogenic claudication (principal); M51.36 Other intervertebral disc degeneration, lumbar region; M51.37 Other intervertebral disc degeneration, lumbosacral region; M47.816 Spondylosis without myelopathy or radiculopathy, lumbar region; M47.817 Spondylosis without myelopathy or radiculopathy, lumbosacral region
CPT/HCPCS: 72131

== ENCOUNTER → 2021-07-29 14:12 | Outpatient (CLI) | payer MEDICARE, SELFPAY ==
[2021-07-29 14:50] LABS: COVID19 -Nasal RAPID Negative (Negative)
== END ==
PROVIDERS: PCP Family Medicine; Referring Provider Internal Medicine; Visit Provider Internal Medicine
DX: Z20.822 Contact with and (suspected) exposure to COVID-19 (principal)
CPT/HCPCS: 87635; C9803

== ENCOUNTER → 2021-07-30 10:47 | Outpatient (CLI) | payer MEDICARE, SELFPAY ==
--- NOTE | 2021-08-04 09:20 | PM.PFT.1 ---
Pulmonary Function Test Referral & Results Date Patient Seen: 07/30/21 Requesting provider: Shaina Boyd Results: The spirometry demonstrates an FVC of 2.46 L which is 82% of predicted. The FEV1 was measured at 1.80 L which is 79% of predicted. The FEV1/FVC ratio was 73 which is 97% of predicted. Following the administration of bronchodilator there was a 16% improvement in FEV1 and a 62% improvement in FEF 25-75% Lung volumes show an SVC of 2.74 L which is 94% of predicted. The diffusing capacity was measured at 20.87 which is 81% of predicted. The maximum voluntary ventilation was reduced Interpretation: This study demonstrates mild obstructive lung disease based on reduction FEV1 alone. FEV1/FVC ratio was preserved but there is a notable improvement in FEV1 and more notable improvement in FEF 25-75% following bronchodilator Lung volumes are normal Minimal reduction in diffusing capacity could be considered normal as well
== END ==
PROVIDERS: PCP Family Medicine; Referring Provider Family Medicine; Visit Provider Family Medicine
DX: R06.09 Other forms of dyspnea (principal)
CPT/HCPCS: 94060; 94726; 94729

== ENCOUNTER 2021-11-18 07:52 | Emergency (ER) | payer MEDICARE, SELFPAY ==
[2021-11-18] VITALS (8 sets, daily range): BP systolic 111–134; BP diastolic 66–85; PULSE 68–81; RESP 20–22; TEMP 36.6; O2SAT 97–98; BMI 26.9
--- NOTE | 2021-11-18 08:41 | ED_ITS ---
HPI - URI/Sore Throat General Chief Complaint: Upper Respiratory Symptoms Stated Complaint: Fatigue, sore throat, diarrhea, chills, dizzy Time Seen by Provider: 11/18/21 08:36 Source: patient and family Mode of arrival: Family Vehicle History of Present Illness HPI Narrative: Patient is a 71-year-old female history of hypothyroid presenting today with generalized body aches. It has been ongoing for the last 4 days. She has headache she is sensitive to light. She feels dizzy. She has a mild cough. She had some diarrhea that has now resolved. All of her joints hurt. She had COVID test yesterday which she is not sure the results of that. She is vaccinated x3. She says that this has happened to her 3 different times usually it goes away on its own and usually it is not this painful. She says she has had some elevated liver enzymes are not sure what that is from. She overall does not feel well. Related Data Home Medications Medication Instructions Recorded Confirmed cholecalciferol (vitamin D3) 25 1,000 unit PO DAILY #0 06/22/16 07/23/21 mcg (1,000 unit) capsule (Vitamin D3) levothyroxine 137 mcg tablet 0.137 mg PO QAM #0 04/05/17 07/23/21 cyclobenzaprine 10 mg tablet 10 mg PO PRN PRN 09/10/19 07/23/21 ipratropium bromide 42 mcg (0.06 1 spray INTRANASAL DIRECTED 09/10/19 07/23/21 %) nasal spray valacyclovir 500 mg tablet 500 mg PO DAILY 09/10/19 07/23/21 vitamin E (dl, acetate) 180 mg 45 mg PO DAILY 03/05/21 07/23/21 (400 unit) capsule cyclosporine 0.05 % eye drops in a drp EYE-BOTH 04/30/21 07/23/21 dropperette (Restasis) naloxegol 25 mg tablet (Movantik) 25 mg PO QAM 04/30/21 07/23/21 albuterol sulfate 90 mcg/actuation 2 puff INHALATION Q6H PRN 07/23/21 07/23/21 aerosol inhaler amitriptyline 10 mg tablet 10 mg PO BEDTIME tab 07/23/21 07/23/21 Previous Rx's Medication Instructions Recorded topiramate 100 mg tablet 100 mg PO BID #180 tab 10/12/20 dextroamphetamine-amphetamine 10 10 mg PO BID #60 tab 03/05/21 mg tablet (Adderall) duloxetine 30 mg capsule,delayed 30 mg PO QDAY #90 cap 03/05/21 release (Cymbalta) duloxetine 60 mg capsule,delayed 60 mg PO QDAY #90 cap 03/05/21 release (Cymbalta) hydroxyzine HCl 25 mg tablet 50 mg PO BID PRN #90 tab 04/30/21 bupropion HCl 300 mg 24 hr tablet, 300 mg PO QAM #90 tab 07/23/21 extended release trazodone 100 mg tablet See Rx Instructions .ROUTE 11/08/21 .COMPLEX #40 tab Allergies Allergy/AdvReac Type Severity Reaction Status Date / Time meperidine [From DEMEROL] Allergy Severe BREATHING Verified 07/23/21 16:12 COMPLICATIONS Penicillins [PENICILLINS] Allergy Intermediate RASH Verified 07/23/21 16:12 Review of Systems Review of Systems ROS Unobtainable: All systems reviewed & are unremarkable except as noted in HPI and below Constitutional Constitutional: Reports body ache(s), Reports chills, Reports fatigue, Denies frequent falls and Reports headache(s) Eyes Eyes: Reports photophobia ENT Ears, Nose, Mouth, and Throat: Reports dizziness, Reports headache(s), Denies sinus pressure and Denies sore throat Cardiovascular Cardiovascular: Denies chest pain, Denies syncope, Reports lightheadedness, Denies dyspnea and Denies dyspnea on exertion Respiratory Respiratory: Reports cough, Denies dyspnea and Denies dyspnea on exertion Gastrointestinal Gastrointestinal: Reports loose stools, Denies nausea and Denies vomiting Genitourinary Genitourinary: Denies urinary hesitancy and Denies urinary urgency Musculoskeletal Musculoskeletal: Reports arthralgias and Reports myalgias Integumentary/Breasts Skin/Breast: Denies rash Neurologic Neurologic: Reports dizziness, Denies syncope, Denies frequent falls and Reports headache(s) Endocrine Endocrine: Reports fatigue Patient History Medical History (Updated 11/18/21 @ 10:15 by Megan Cox DO) ADHD Anxiety Chronic back pain Depression Hypothyroid Injury of common bile duct during operative procedure Major depressive disorder, recurrent episode, moderate with anxious distress Migraines Obstructive sleep apnea Surgical History H/O abdominoplasty H/O bilateral breast implants History of cholecystectomy History of Kym-en-Y gastric bypass History of tonsillectomy S/P SELMA-BSO Social History household members: spouse occupational status: employed Smoking Status: Former smoker alcohol intake: never substance use type: does not use Smoking Status: Former smoker tobacco type: cigarettes alcohol intake frequency: 0-2 drinks per day Substance Use Type: does not use Exam Initial Vital Signs Initial Vital Signs: Vital Signs Temperature 97.9 F 11/18/21 08:05 Pulse Rate 81 11/18/21 08:05 Respiratory Rate 20 11/18/21 08:05 Blood Pressure 111/79 11/18/21 08:05 Pulse Oximetry 97 11/18/21 08:05 GENERAL: 71-year-old female overall not feeling well curled in ball on gurney HEENT: Head atraumatic,EOMI, pupils reactive, face symmetric, [moist] mucous membranes CARDIOVASCULAR: Regular rate and rhythm without murmurs, rubs or gallops. RESPIRATORY: Breath sounds equal bilaterally, no wheezes rales or rhonchi. ABDOMEN: Soft, nontender. Normoactive bowel sounds all 4 quadrants. No guarding or rebound. EXTREMITIES: Normal range of motion, no clubbing or edema. Neurovascularly intact NEUROLOGICAL: Alert and oriented x4.Normal gait and speech. Cranial nerves II through XII grossly intact. [Good [id number], good [id number], strength equal bilaterally, no dysarthria or aphasia, sensation in tact to soft touch bilaterally, no visual changes, no facial droop] SKIN: Warm, dry, no laceration, no petechiae, no rashes or lesions. Course Orders Ordered: ED Orders 11/18/21 08:05 COVID19 -Nasal swab/Pre-Proc Stat 11/18/21 08:45 EKG-12 Lead Stat 11/18/21 09:22 CBC Auto Diff [Complete Blood Count AUTO DIFF] Stat CMP [Comprehensive Metabolic Panel] Stat Procalcitonin Stat Troponin & CK Cardiac Panel Stat Discontinued Medications Sodium Chloride (Normal Saline 0.9%) 1,000 mls @ 1,000 mls/hr IV BOLUS ONE Stop: 11/18/21 09:41 Last Infusion: 11/18/21 11:47 Dose: 0 mls/hr Documented by: Admin: 11/18/21 09:25 Dose: 1,000 mls/hr Documented by: SHEELA Ketorolac Tromethamine (Ketorolac 30 Mg/Ml Vial) 15 mg IV NOW ONE Stop: 11/18/21 08:43 Last Admin: 11/18/21 09:26 Dose: 15 mg Documented by: SHEELA Lorazepam (Lorazepam 2 Mg/Ml Inj) 0.5 mg IV NOW ONE Stop: 11/18/21 10:24 Last Admin: 11/18/21 10:56 Dose: 0.5 mg Documented by: SHEELA Vital Signs Vital signs: Vital Signs - 8 hr 11/18/21 09:30 11/18/21 09:31 11/18/21 10:00 Pulse Rate 72 71 70 Respiratory Rate 20 Blood Pressure 118/70 Pulse Oximetry 98 98 98 11/18/21 10:01 11/18/21 10:30 11/18/21 11:00 Pulse Rate 74 68 77 Respiratory Rate 22 Blood Pressure 134/85 113/82 124/66 Pulse Oximetry 98 97 98 11/18/21 11:32 Pulse Rate 70 Respiratory Rate 22 Blood Pressure 122/69 Pulse Oximetry 98 MDM - URI/Sore Throat Lab Data Result diagrams: 11/18/21 09:22 11/18/21 09:22 Labs: Lab Results 11/18/21 11/18/21 11/18/21 Range/Units 08:05 09:22 09:22 WBC 5.3 (4.5-11.0) X10^3/uL RBC 3.74 L (4.0-5.2) X10^6/uL Hgb 12.2 (12.0-16.0) g/dL Hct 36.4 (36-46) % MCV 97.3 (80-100) fL MCH 32.5 (26-34) PG MCHC 33.4 (30-36) % RDW 14.3 (11.6-14.8) % Plt Count 242 (150-400) X10^3/uL Neut % (Auto) 52.0 (50-75) % Lymph % (Auto) 31.7 (25-40) % Crowley % (Auto) 12.0 (3-14) % Eos % (Auto) 2.3 (2-4) % Baso % (Auto) 2.0 (0-2) % Neut # (Auto) 2800 (2767-7113) /uL Lymph # (Auto) 1700 (0970-0674) /uL Crowley # (Auto) 600 (0-900) /uL Eos # (Auto) 100 (0-450) /uL Baso # (Auto) 100 (0-100) /uL Sodium 141 (137-145) mmol/L Potassium 3.9 (3.4-5.1) mmol/L Chloride 110 H (98-107) mmol/L Carbon Dioxide 27 (22-32) mmol/L BUN 14 (7-17) mg/dL Creatinine 1.16 H (0.52-1.04) mg/dL Estimated GFR 45.8 L (>60) mL/min BUN/Creatinine Ratio 12.1 (6-22) Glucose 103 (80-110) mg/dL Calcium 9.0 (8.4-10.2) mg/dL Total Bilirubin 0.4 (0.2-1.3) mg/dL AST 95 H (14-36) IU/L ALT 61 H (<35) IU/L Alkaline Phosphatase 100 (38-126) U/L Total Creatine Kinase (30-135) U/L CK-MB (CK-2) CK-MB (CK-2) Rel Index Troponin I (0.01-0.034) ng/mL Total Protein 6.4 (6.3-8.2) g/dL Albumin 3.8 (3.5-5.0) g/dL Globulin 2.6 (1.7-4.1) g/dL Albumin/Globulin Ratio 1.5 (1.0-2.8) Procalcitonin (<0.5) ng/mL SARS-CoV-2 (PCR) Negative (Negative) 11/18/21 11/18/21 Range/Units 09:22 09:22 WBC (4.5-11.0) X10^3/uL RBC (4.0-5.2) X10^6/uL Hgb (12.0-16.0) g/dL Hct (36-46) % MCV (80-100) fL MCH (26-34) PG MCHC (30-36) % RDW (11.6-14.8) % Plt Count (150-400) X10^3/uL Neut % (Auto) (50-75) % Lymph % (Auto) (25-40) % Crowley % (Auto) (3-14) % Eos % (Auto) (2-4) % Baso % (Auto) (0-2) % Neut # (Auto) (6113-0445) /uL Lymph # (Auto) (6295-1717) /uL Crowley # (Auto) (0-900) /uL Eos # (Auto) (0-450) /uL Baso # (Auto) (0-100) /uL Sodium (137-145) mmol/L Potassium (3.4-5.1) mmol/L Chloride (98-107) mmol/L Carbon Dioxide (22-32) mmol/L BUN (7-17) mg/dL Creatinine (0.52-1.04) mg/dL Estimated GFR (>60) mL/min BUN/Creatinine Ratio (6-22) Glucose (80-110) mg/dL Calcium (8.4-10.2) mg/dL Total Bilirubin (0.2-1.3) mg/dL AST (14-36) IU/L ALT (<35) IU/L Alkaline Phosphatase (38-126) U/L Total Creatine Kinase 57 (30-135) U/L CK-MB (CK-2) TNP CK-MB (CK-2) Rel Index TNP Troponin I < 0.012 (0.01-0.034) ng/mL Total Protein (6.3-8.2) g/dL Albumin (3.5-5.0) g/dL Globulin (1.7-4.1) g/dL Albumin/Globulin Ratio (1.0-2.8) Procalcitonin 0.12 (<0.5) ng/mL SARS-CoV-2 (PCR) (Negative) ECG Data Interpretation: Normal sinus rhythm rate 61 MS interval 146 QRS [address] changes or T- wave inversions MDM Narrative Medical decision making narrative: Patient is overall feeling better. Her COVID test is negative. Her creatinine is at baseline mild elevation liver enzymes, but otherwise overall reassuring workup. She is feeling better. At this time it seems she has good follow-up with her primary care provider's no need for admission at this time. Unclear what the cause of her symptoms is today. Symptoms do seem viral like. Discharge Plan Departure Patient Disposition: Home Clinical Impression: Upper respiratory infection Instructions: DI for Viral Upper Respiratory Infection -- Adult Activity Restrictions/Additional Instructions: *You have been diagnosed with upper respiratory infection *What to do: At this time blood work is overall reassuring. Your kidney function is stable. Your liver function is slightly elevated as you know. COVID test is negative. *Continue to take medications as directed Avoid Tylenol it goes through your liver Ibuprofen 600 mg every 8 hours if needed for suza-ab-[id number] pain *Follow up with your primary care provider in 2-3 days or call [phone] *Return to ER if you should have increasing pain, cough, shortness of breath, or any new, worsening or concerning symptoms Prescriptions: No Action Restasis 0.05 % dropperette EYE-BOTH 0RF Movantik 25 mg tablet 25 mg PO QAM 0RF Rx Instructions: must be taken on empty stomach; no food 1 hr after or 2-3 hrs before dose hydroxyzine HCl 25 mg tablet 50 mg PO BID PRN (Reason: anxiety) Qty: 90 1RF Rx Instructions: Take 2 tabs up to twice daily as needed for anxiety vitamin E (dl, acetate) 400 unit capsule 45 mg PO DAILY 0RF dextroamphetamine-amphetamine [Adderall] 10 mg tablet 10 mg PO BID Qty: 60 0RF Rx Instructions: administer doses at least 4-6 hours apart duloxetine [Cymbalta] 30 mg capsule,delayed release(DR/EC) 30 mg PO QDAY Qty: 90 3RF Rx Instructions: take 1 capsule with 1 60mg capsule, once daily for a total of 90mg daily. duloxetine [Cymbalta] 60 mg capsule,delayed release(DR/EC) 60 mg PO QDAY Qty: 90 3RF Rx Instructions: Take with 30mg pill for total daily dose 90mg amitriptyline 10 mg tablet 10 mg PO BEDTIME 0RF Label Comments: take 1 tablet by mouth nightly albuterol sulfate 90 mcg/actuation HFA aerosol inhaler 2 puff inhalation Q6H PRN0RF bupropion HCl 300 mg tablet extended release 24 hr 300 mg PO QAM Qty: 90 1RF cholecalciferol (vitamin D3) [Vitamin D3] 1,000 unit Capsule 1,000 unit PO DAILY Qty: 0 0RF levothyroxine 137 MCG tablet 0.137 mg PO QAM Qty: 0 0RF topiramate 100 mg tablet 100 mg PO BID Qty: 180 0RF Rx Instructions: Pt to have PCP fill next trazodone 100 mg tablet See Rx Instructions .ROUTE .COMPLEX Qty: 40 2RF Dose Instruction: take 1 tablet by mouth at bedtime if needed for insomnia OKAY TO TAKE 2 TABLETS IF NEEDED FOR SEVERE INSOMNIA Rx Instructions: take 1 tablet by mouth at bedtime if needed for insomnia OKAY TO TAKE 2 TABLETS IF NEEDED FOR SEVERE INSOMNIA valacyclovir 500 mg tablet 500 mg PO DAILY 0RF ipratropium bromide 42 mcg (0.06 %) spray,non-aerosol 1 spray INTRANASAL DIRECTED 0RF cyclobenzaprine 10 mg tablet 10 mg PO PRN PRN (Reason: Spasms) 0RF Label Comments: PATIENT STATES TAKES BID Rx Instructions: take 1 tablet by mouth up to three times a day if needed for muscle spasm Referrals: Shaina Boyd DO [Primary Care Provider] - Stand Alone Forms: Work Release Note
[2021-11-18 08:43] LABS: COVID19 -Nasal RAPID Negative (Negative)
[2021-11-18] MEDS: SODIUM CHLORIDE 0.9% 1,000 ML 1000 ML IV (09:25)
[2021-11-18] MEDS: KETOROLAC 30 MG/ML VIAL 15 MG IV (09:26)
[2021-11-18 09:36] LABS: Add Manual Diff / Slide Review NO; Basophils Absolute Auto 100 /uL (0-100); Eosinophils Absolute Auto 100 /uL (0-450); Eosinophils Percent Auto 2.3 % (2-4); Hematocrit 36.4 % (36-46); Hemoglobin 12.2 g/dL (12.0-16.0); Lymphocytes Absolute Auto 1700 /uL (1100-4500); Lymphocytes Percent Auto 31.7 % (25-40); Mean Corpuscular HGB Conc 33.4 % (30-36); Mean Corpuscular Hemoglobin 32.5 PG (26-34); Mean Corpuscular Volume 97.3 fL (80-100); Monocytes Absolute Auto 600 /uL (0-900); Neutrophils Absolute Auto 2800 /uL (1500-7000); Platelet Count 242 X10^3/uL (150-400); Red Blood Cell Count 3.74 X10^6/uL (4.0-5.2); Red Cell Distribution Width 14.3 % (11.6-14.8); White Blood Cell Count 5.3 X10^3/uL (4.5-11.0)
[2021-11-18 09:48] LABS: Creatine Kinase 57 U/L (30-135)
[2021-11-18 09:49] LABS: Alanine Aminotransferase 61 IU/L (<35); Albumin 3.8 g/dL (3.5-5.0); Albumin Globulin Ratio 1.5 (1.0-2.8); Alkaline Phosphatase 100 U/L (38-126); Aspartate Aminotransferase 95 IU/L (14-36); BUN Creatinine Ratio 12.1 (6-22); Bilirubin Total 0.4 mg/dL (0.2-1.3); Blood Urea Nitrogen 14 mg/dL (7-17); Carbon Dioxide 27 mmol/L (22-32); Chloride 110 mmol/L (98-107); Estimated Glomerular Filt Rate 45.8 mL/min (>60); Globulin 2.6 g/dL (1.7-4.1); Glucose 103 mg/dL (80-110); HEMOLYSIS < 15 (0-50); Potassium 3.9 mmol/L (3.4-5.1); Sodium 141 mmol/L (137-145); Total Protein 6.4 g/dL (6.3-8.2)
[2021-11-18 10:00] LABS: Troponin I < 0.012 ng/mL (0.01-0.034)
[2021-11-18 10:05] LABS: Procalcitonin 0.12 ng/mL (<0.5)
[2021-11-18] MEDS: LORazepam 2 MG/ML INJ 0.5 MG IV (10:56)
== END 2021-11-18 11:48 | disposition home or self-care (01) ==
PROVIDERS: Emergency Provider Emergency Medicine; PCP Family Medicine
DX: J06.9 Acute upper respiratory infection, unspecified (principal); Z87.891 Personal history of nicotine dependence; Z20.822 Contact with and (suspected) exposure to COVID-19
CPT/HCPCS: 36415; 80053; 82550; 84145; 84484; 85025; 87635; 93005; 96361; 96374; 96375; 99284; C9803; J1885; J2060

== ENCOUNTER 2021-11-20 07:47 | Emergency (ER) | payer MEDICARE, SELFPAY ==
[2021-11-20] VITALS (8 sets, daily range): BP systolic 135; BP diastolic 84; PULSE 58–77; RESP 15–21; TEMP 36.8; O2SAT 94–99; BMI 27.1
--- NOTE | 2021-11-20 08:12 | ED_ITS ---
HPI - Dizziness General Chief Complaint: Dizziness Stated Complaint: here days ago, headache, dizzy, cough Time Seen by Provider: 11/20/21 08:05 Source: patient Mode of arrival: Wheelchair Limitations: no limitations History of Present Illness HPI Narrative: This is a 71-year-old female who arrives with complaint of headache for the past week starting last MondayNovember 14 patient states she was seen here, had some improvement with medications last the 18 of November. Patient states symptoms have returned. She has had what she describes as a cluster of migraines. She has known migraine history she was recently started on sumatriptan several days before this most recent episode and has not had any relief she describes dizziness which has been present for several months. She has not had any fevers or chills. She does have photophobia, she describes a very distressing nightmare with a room full of objects that are split in half hour trying to return back to a whole piece. Patient has had nausea and vomiting intermittently. She states this is a typical for her migraines. She has had some loose stools for several days intermittently, no black or bloody stools. Patient denies any abdominal pain. She has chronic back pain. She describes all over body pain and muscle aches. She has been checked for COVID several times. She denies any new swelling in her extremities. No new changes to her gait, movement, no new numbness or tingling. No new speech changes. Patient is on multiple medications for anxiety, migraines including Topamax, valacyclovir and levothyroxine. She states she has stopped her ADHD medication about 6 months ago. She has established with a new neurologist Dr. Zaragoza recently. He has ordered an MRI of her brain she had 1 in May of 2020 which was negative for any change. Patient states no other new medication changes. Related Data Home Medications Medication Instructions Recorded Confirmed cholecalciferol (vitamin D3) 25 1,000 unit PO DAILY #0 06/22/16 07/23/21 mcg (1,000 unit) capsule (Vitamin D3) levothyroxine 137 mcg tablet 0.137 mg PO QAM #0 04/05/17 07/23/21 cyclobenzaprine 10 mg tablet 10 mg PO PRN PRN 09/10/19 07/23/21 ipratropium bromide 42 mcg (0.06 1 spray INTRANASAL DIRECTED 09/10/19 07/23/21 %) nasal spray valacyclovir 500 mg tablet 500 mg PO DAILY 09/10/19 07/23/21 vitamin E (dl, acetate) 180 mg 45 mg PO DAILY 03/05/21 07/23/21 (400 unit) capsule cyclosporine 0.05 % eye drops in a drp EYE-BOTH 04/30/21 07/23/21 dropperette (Restasis) naloxegol 25 mg tablet (Movantik) 25 mg PO QAM 04/30/21 07/23/21 albuterol sulfate 90 mcg/actuation 2 puff INHALATION Q6H PRN 07/23/21 07/23/21 aerosol inhaler amitriptyline 10 mg tablet 10 mg PO BEDTIME tab 07/23/21 07/23/21 Previous Rx's Medication Instructions Recorded topiramate 100 mg tablet 100 mg PO BID #180 tab 10/12/20 dextroamphetamine-amphetamine 10 10 mg PO BID #60 tab 03/05/21 mg tablet (Adderall) duloxetine 30 mg capsule,delayed 30 mg PO QDAY #90 cap 03/05/21 release (Cymbalta) duloxetine 60 mg capsule,delayed 60 mg PO QDAY #90 cap 03/05/21 release (Cymbalta) hydroxyzine HCl 25 mg tablet 50 mg PO BID PRN #90 tab 04/30/21 bupropion HCl 300 mg 24 hr tablet, 300 mg PO QAM #90 tab 07/23/21 extended release trazodone 100 mg tablet See Rx Instructions .ROUTE 11/08/21 .COMPLEX #40 tab Allergies Allergy/AdvReac Type Severity Reaction Status Date / Time meperidine [From DEMEROL] Allergy Severe BREATHING Verified 07/23/21 16:12 COMPLICATIONS Penicillins [PENICILLINS] Allergy Intermediate RASH Verified 07/23/21 16:12 Review of Systems Review of Systems ROS Unobtainable: All systems reviewed & are unremarkable except as noted in HPI and below Patient History Medical History ADHD Anxiety Chronic back pain Depression Hypothyroid Injury of common bile duct during operative procedure Major depressive disorder, recurrent episode, moderate with anxious distress Migraines Obstructive sleep apnea Surgical History H/O abdominoplasty H/O bilateral breast implants History of cholecystectomy History of Kym-en-Y gastric bypass History of tonsillectomy S/P SELMA-BSO Social History household members: spouse occupational status: employed Smoking Status: Former smoker alcohol intake: never substance use type: does not use Smoking Status: Former smoker tobacco type: cigarettes alcohol intake frequency: 0-2 drinks per day Substance Use Type: does not use Exam Narrative Exam Narrative: GEN: well nourished, female, alert and oriented x 3, patient appears to be in mild distress. Patient has her eyes covered when I enter the room but removes her blanket and converses easily. HEENT: Atraumatic, pupils are equal round reactive to light, positive for photophobia, extraocular movements are intact, nares are clear, TMs are clear with no fluid, there is no conjunctival pallor. Throat is clear without any exu dates, erythema, tonsillar enlargement or uvular deviation, no facial droop. HEART: Regular rate and rhythm without murmur, clicks, rubs. Pulses are equal in upper and lower extremities LUNGS:Lungs clear to auscultation, no wheezes, rales, crackles, chest moves symmetrically ABD:bowel sounds normal, soft, non-tender, no guarding, rebound, rigidity, no masses noted, no hepatosplenomegaly :No CVA tenderness MSCL: Non-tender, no muscle atrophy, muscles strength 5/5 upper and lower extremities, full range of motion NEURO:CN 2-12 intact, sensation normal SKIN: No rash, erythema or other skin changes noted. Initial Vital Signs Initial Vital Signs: Vital Signs Pulse Oximetry 95 11/20/21 07:59 Scores GCS Sherry coma scale eye opening: Spontaneous [place] coma scale verbal response: Orientated [place] coma scale motor response: Obey commands [place] coma scale total score: 15 Course Orders Ordered: Discontinued Medications Dexamethasone (Dexamethasone 10 Mg/Ml Vial) 10 mg IV NOW ONE Stop: 11/20/21 08:45 Last Admin: 11/20/21 08:58 Dose: 10 mg Documented by: LYN Diphenhydramine HCl (Diphenhydramine 50 Mg/Ml Vial) 25 mg IV NOW ONE Stop: 11/20/21 08:32 Last Admin: 11/20/21 08:57 Dose: 25 mg Documented by: LYN Sodium Chloride (Normal Saline 0.9%) 1,000 mls @ 1,000 mls/hr IV BOLUS ONE Stop: 11/20/21 09:30 Last Infusion: 11/20/21 10:00 Dose: 0 mls/hr Documented by: Admin: 11/20/21 08:59 Dose: 1,000 mls/hr Documented by: LYN Ketorolac Tromethamine (Ketorolac 30 Mg/Ml Vial) 15 mg IV NOW ONE Stop: 11/20/21 08:32 Last Admin: 11/20/21 08:58 Dose: 15 mg Documented by: LYN Metoclopramide HCl (Metoclopramide 10 Mg/2 Ml Inj) 10 mg IV NOW ONE Stop: 11/20/21 08:32 Last Admin: 11/20/21 08:58 Dose: 10 mg Documented by: LYN Reevaluation(s) Reevaluation #1: Patient is feeling better. She states her headache is better. Patient is not feeling nauseated. She feels comfortable to return home. She plans follow-up with her neurologist regarding whether to continue her sumatriptan and still get her MRI as an outpatient. All questions answered we did review her labs and findings today. Time: 10:38 Vital Signs Vital signs: Vital Signs - 8 hr 11/20/21 07:59 11/20/21 08:00 11/20/21 08:30 Temperature 98.2 F Pulse Rate 66 73 Respiratory Rate 18 Blood Pressure 135/84 Pulse Oximetry 95 94 98 11/20/21 09:00 11/20/21 09:30 11/20/21 10:00 Temperature Pulse Rate 60 61 Respiratory Rate 21 20 18 Blood Pressure Pulse Oximetry 98 98 97 MDM - Dizziness Lab Data Result diagrams: 11/20/21 09:14 11/20/21 09:14 Labs: Lab Results 11/20/21 11/20/21 Range/Units 09:14 09:14 WBC 5.3 (4.5-11.0) X10^3/uL RBC 3.86 L (4.0-5.2) X10^6/uL Hgb 12.6 (12.0-16.0) g/dL Hct 37.3 (36-46) % MCV 96.7 (80-100) fL MCH 32.5 (26-34) PG MCHC 33.6 (30-36) % RDW 14.2 (11.6-14.8) % Plt Count 237 (150-400) X10^3/uL Neut % (Auto) 56.9 (50-75) % Lymph % (Auto) 29.1 (25-40) % [place] % (Auto) 10.5 (3-14) % Eos % (Auto) 1.8 L (2-4) % Baso % (Auto) 1.7 (0-2) % Neut # (Auto) 3000 (1447-8716) /uL Lymph # (Auto) 1600 (9640-9814) /uL [place] # (Auto) 600 (0-900) /uL Eos # (Auto) 100 (0-450) /uL Baso # (Auto) 100 (0-100) /uL Sodium 140 (137-145) mmol/L Potassium 3.7 (3.4-5.1) mmol/L Chloride 109 H (98-107) mmol/L Carbon Dioxide 29 (22-32) mmol/L BUN 9 (7-17) mg/dL Creatinine 1.11 H (0.52-1.04) mg/dL Estimated GFR 48.2 L (>60) mL/min BUN/Creatinine Ratio 8.1 (6-22) Glucose 113 H (80-110) mg/dL Calcium 9.3 (8.4-10.2) mg/dL Total Bilirubin 0.5 (0.2-1.3) mg/dL AST 25 (14-36) IU/L ALT 32 (<35) IU/L Alkaline Phosphatase 96 (38-126) U/L Total Protein 6.7 (6.3-8.2) g/dL Albumin 3.8 (3.5-5.0) g/dL Globulin 2.9 (1.7-4.1) g/dL Albumin/Globulin Ratio 1.3 (1.0-2.8) Lipase 55 (23-300) U/L Imaging Data CT scan - head: Radiologist's Impression: [address] [address] [address] Scan Report Signed Patient: Ying Quintana MR#: [id number] : 1950 Acct:[id number] Age/Sex: 71 / F Date of Service: 11/20/21 Loc: ED Accession Number: [id number] ?? Procedure: CT head/brain wo con Ordering Provider: Gracie Choe D.O. PROCEDURE:? CT HEAD/BRAIN WO CON ? INDICATIONS:? persistent migraine x 1 week, dizziness ? TECHNIQUE:? Noncontrast 4.5 mm thick angled axial sections acquired from the foramen magnum to the vertex, with coronal and sagittal reformats.? For radiation dose reduction, the following was used:? automated exposure control, adjustment of mA and/or kV according to patient size.? ? COMPARISON:? None. ? FINDINGS:? Image quality:? Excellent.? ? CSF spaces:? Basal cisterns are patent.? No extra-axial fluid collections.? The ventricles are symmetric in size and shape.? ? Brain:? No intracranial bleeds or masses.? There is cerebral volume loss for age, with resultant ventricular and sulcal prominence.? There are periventricular and deep white matter chronic small vessel ischemic changes.? There is intracranial internal carotid artery atherosclerosis.? ? Skull and face:? Calvarium and visualized facial bones appear intact, without suspicious lesions.? ? Sinuses:? Visualized sinuses and mastoids are clear.? ? IMPRESSION:? ? 1. Age-related volume loss and small vessel ischemic change. ? 2. No evidence acute stroke, hemorrhage, or mass.? ? ? Dictated by: Pedrito Cornejo M.D. on 11/20/2021 at 8:27 ? ? Approved by: Pedrito Cornejo M.D. on 11/20/2021 at 8:28?? [facility] Narrative Medical decision making narrative: This is a 71-year-old female with history of migraines with persistent headaches for the past week she was seen 6 days ago for similar symptoms and had improvement with medications but then recurrence. She has also had nausea and vomiting which she states is atypical for her migraines. She describes generalized body aches and discomfort. She had COVID swabs which have been negative so far. She has been afebrile. No acute neurologic changes. With the persistence of her headache head CT was ordered. She has an MRI her brain from May 2020 which was negative at that time. Patient did recently start sumatriptan before this most recent episode of migraines started. But she has not been taking daily so do not suspect this is the main cause of her symptoms. Labs are otherwise reassuring she does appear to have some chronic kidney disease which appears stable. Patient received fluids, Toradol, Benadryl, Reglan and dexamethasone. Patient did have improvement of symptoms. She is going to follow up with her neurologist for recheck and whether to continue her sumatriptan. She already has an MRI ordered as outpatient which she will pursue as well. Discharge Plan Departure Patient Disposition: Home Clinical Impression: Migraine, Nausea & vomiting Instructions: DI for Migraine Activity Restrictions/Additional Instructions: Follow-up with your neurologist for recheck. Your renal function today appears stable with no worsening and your liver enzym es are improved today. You can continue home medications as prescribed. If you prefer you may stop the sumatriptan and discuss if this is appropriate for treatment of your migraines with your neurologist. I would recommend that you follow-up in get the MRI of your brain as ordered by her neurologist. Please return for fevers, new vision changes, numbness, tingling or weakness, passing out, new chest pain or shortness of breath, persistent vomiting, falls or other new or concerning symptoms. Prescriptions: No Action Restasis 0.05 % dropperette EYE-BOTH 0RF Movantik 25 mg tablet 25 mg PO QAM 0RF Rx Instructions: must be taken on empty stomach; no food 1 hr after or 2-3 hrs before dose hydroxyzine HCl 25 mg tablet 50 mg PO BID PRN (Reason: anxiety) Qty: 90 1RF Rx Instructions: Take 2 tabs up to twice daily as needed for anxiety vitamin E (dl, acetate) 400 unit capsule 45 mg PO DAILY 0RF dextroamphetamine-amphetamine [Adderall] 10 mg tablet 10 mg PO BID Qty: 60 0RF Rx Instructions: administer doses at least 4-6 hours apart duloxetine [Cymbalta] 30 mg capsule,delayed release(DR/EC) 30 mg PO QDAY Qty: 90 3RF Rx Instructions: take 1 capsule with 1 60mg capsule, once daily for a total of 90mg daily. duloxetine [Cymbalta] 60 mg capsule,delayed release(DR/EC) 60 mg PO QDAY Qty: 90 3RF Rx Instructions: Take with 30mg pill for total daily dose 90mg amitriptyline 10 mg tablet 10 mg PO BEDTIME 0RF Label Comments: take 1 tablet by mouth nightly albuterol sulfate 90 mcg/actuation HFA aerosol inhaler 2 puff inhalation Q6H PRN0RF bupropion HCl 300 mg tablet extended release 24 hr 300 mg PO QAM Qty: 90 1RF cholecalciferol (vitamin D3) [Vitamin D3] 1,000 unit Capsule 1,000 unit PO DAILY Qty: 0 0RF levothyroxine 137 MCG tablet 0.137 mg PO QAM Qty: 0 0RF topiramate 100 mg tablet 100 mg PO BID Qty: 180 0RF Rx Instructions: Pt to have PCP fill next trazodone 100 mg tablet See Rx Instructions .ROUTE .COMPLEX Qty: 40 2RF Dose Instruction: take 1 tablet by mouth at bedtime if needed for insomnia OKAY TO TAKE 2 TABLETS IF NEEDED FOR SEVERE INSOMNIA Rx Instructions: take 1 tablet by mouth at bedtime if needed for insomnia OKAY TO TAKE 2 TABLETS IF NEEDED FOR SEVERE INSOMNIA valacyclovir 500 mg tablet 500 mg PO DAILY 0RF ipratropium bromide 42 mcg (0.06 %) spray,non-aerosol 1 spray INTRANASAL DIRECTED 0RF cyclobenzaprine 10 mg tablet 10 mg PO PRN PRN (Reason: Spasms) 0RF Label Comments: PATIENT STATES TAKES BID Rx Instructions: take 1 tablet by mouth up to three times a day if needed for muscle spasm Referrals: Shaina Boyd DO [Primary Care Provider] -
--- NOTE | 2021-11-20 08:31 | DI.CT.S_ITS ---
PROCEDURE: CT HEAD/BRAIN WO CON INDICATIONS: persistent migraine x 1 week, dizziness TECHNIQUE: Noncontrast 4.5 mm thick angled axial sections acquired from the foramen magnum to the vertex, with coronal and sagittal reformats. For radiation dose reduction, the following was used: automated exposure control, adjustment of mA and/or kV according to patient size. COMPARISON: None. FINDINGS: Image quality: Excellent. CSF spaces: Basal cisterns are patent. No extra-axial fluid collections. The ventricles are symmetric in size and shape. Brain: No intracranial bleeds or masses. There is cerebral volume loss for age, with resultant ventricular and sulcal prominence. There are periventricular and deep white matter chronic small vessel ischemic changes. There is intracranial internal carotid artery atherosclerosis. Skull and face: Calvarium and visualized facial bones appear intact, without suspicious lesions. Sinuses: Visualized sinuses and mastoids are clear. IMPRESSION: 1. Age-related volume loss and small vessel ischemic change. 2. No evidence acute stroke, hemorrhage, or mass. Dictated by: Pedrito Cornejo M.D. on 11/20/2021 at 8:27 Approved by: Pedrito Cornejo M.D. on 11/20/2021 at 8:28
[2021-11-20] MEDS: diphenhydrAMINE 50 MG/ML VIAL 25 MG IV (08:57)
[2021-11-20] MEDS: METOCLOPRAMIDE 10 MG/2 ML INJ IV (08:58)
[2021-11-20] MEDS: DEXAMETHASONE 10 MG/ML VIAL IV (08:58)
[2021-11-20] MEDS: KETOROLAC 30 MG/ML VIAL 15 MG IV (08:58)
[2021-11-20] MEDS: SODIUM CHLORIDE 0.9% 1,000 ML 1000 ML IV (08:59)
[2021-11-20 09:23] LABS: Add Manual Diff / Slide Review NO; Basophils Absolute Auto 100 /uL (0-100); Basophils Percent Auto 1.7 % (0-2); Eosinophils Absolute Auto 100 /uL (0-450); Eosinophils Percent Auto 1.8 % (2-4); Hematocrit 37.3 % (36-46); Hemoglobin 12.6 g/dL (12.0-16.0); Lymphocytes Absolute Auto 1600 /uL (1100-4500); Lymphocytes Percent Auto 29.1 % (25-40); Mean Corpuscular HGB Conc 33.6 % (30-36); Mean Corpuscular Hemoglobin 32.5 PG (26-34); Mean Corpuscular Volume 96.7 fL (80-100); Monocytes Absolute Auto 600 /uL (0-900); Monocytes Percent Auto 10.5 % (3-14); Neutrophils Absolute Auto 3000 /uL (1500-7000); Neutrophils Percent Auto 56.9 % (50-75); Platelet Count 237 X10^3/uL (150-400); Red Blood Cell Count 3.86 X10^6/uL (4.0-5.2); Red Cell Distribution Width 14.2 % (11.6-14.8); White Blood Cell Count 5.3 X10^3/uL (4.5-11.0)
[2021-11-20 09:37] LABS: Alanine Aminotransferase 32 IU/L (<35); Albumin 3.8 g/dL (3.5-5.0); Albumin Globulin Ratio 1.3 (1.0-2.8); Alkaline Phosphatase 96 U/L (38-126); Aspartate Aminotransferase 25 IU/L (14-36); BUN Creatinine Ratio 8.1 (6-22); Bilirubin Total 0.5 mg/dL (0.2-1.3); Blood Urea Nitrogen 9 mg/dL (7-17); Calcium 9.3 mg/dL (8.4-10.2); Carbon Dioxide 29 mmol/L (22-32); Chloride 109 mmol/L (98-107); Estimated Glomerular Filt Rate 48.2 mL/min (>60); Globulin 2.9 g/dL (1.7-4.1); Glucose 113 mg/dL (80-110); HEMOLYSIS < 15 (0-50); Lipase 55 U/L (23-300); Potassium 3.7 mmol/L (3.4-5.1); Sodium 140 mmol/L (137-145); Total Protein 6.7 g/dL (6.3-8.2)
== END 2021-11-20 11:11 | disposition home or self-care (01) ==
PROVIDERS: Emergency Provider Emergency Medicine; PCP Family Medicine
DX: G43.909 Migraine, unspecified, not intractable, without status migrainosus (principal); R11.2 Nausea with vomiting, unspecified; Z87.891 Personal history of nicotine dependence
CPT/HCPCS: 36415; 70450; 80053; 83690; 85025; 96361; 96374; 96375; 99284; J1100; J1200; J1885; J2765

== ENCOUNTER → 2021-12-17 19:39 | Outpatient (CLI) | payer MEDICARE, SELFPAY ==
--- NOTE | 2021-12-17 19:42 | DI.MRI.S_ITS ---
PROCEDURE: MR HEAD/BRAIN WO CON INDICATIONS: CHRONIC MIGRAINE WITHOUT AURA TECHNIQUE: Noncontrast axial T1 spin echo, axial T2 fast spin echo, sagittal and axial FLAIR, coronal T2 fast spin echo, axial gradient echo, axial diffusion and ADC through the brain. COMPARISON: None. FINDINGS: Cerebrum, Cerebellum and Brainstem: Moderate cerebral and cerebellar volume loss as well as moderate multifocal hyperintensities in the deep and subcortical white matter present. The diffusion sequence is normal without evidence of acute infarct. No intracranial hemorrhage, mass lesion or midline shift. Basal cisterns and foramen magnum contain appropriate anatomy and vascular flow voids. No evidence of dural or leptomeningeal thickening. Incidental 2.3 x 1.6 cm extra-axial arachnoid cysts noted in a right frontal sulcus. Ventricles: Appropriate in size and position. No hydrocephalus. Skull Base: The bony sella, pituitary gland and infundibulum unremarkable. Clivus and craniovertebral relationships are appropriate. Visualized portions of the seventh and eighth cranial nerve complexes and internal auditory canals are within normal limits. Scalp and Calvarium: The scalp is unremarkable. Underlying calvarium has an appropriate marrow signal. Paranasal Sinuses: Visualized portions of the paranasal sinuses are clear. Mastoids: Unremarkable as visualized. No mastoid effusion present. Orbits: The orbits, globes and ocular muscles are unremarkable. Bilateral intraocular lens replacements noted. IMPRESSION: 1. Moderate atrophy and chronic ischemic change without acute hemorrhage, infarct or mass lesion Approved by: Anant Helm M.D. on 12/18/2021 at 7:26
== END ==
PROVIDERS: PCP Family Medicine; Referring Provider Psychiatry & Neurology Neurology; Visit Provider Psychiatry & Neurology Neurology
DX: G43.719 Chronic migraine without aura, intractable, without status migrainosus (principal)
CPT/HCPCS: 70551

== ENCOUNTER → 2021-12-20 09:48 | Outpatient (CLI) | payer MEDICARE, SELFPAY ==
[2021-12-20 13:12] LABS: COVID19 -Nasal RAPID Negative (Negative)
== END ==
PROVIDERS: PCP Family Medicine; Visit Provider Family Medicine Sleep Medicine
DX: Z20.822 Contact with and (suspected) exposure to COVID-19 (principal)
CPT/HCPCS: 87635; C9803

== ENCOUNTER 2021-12-24 07:41 | Observation (INO) | payer MEDICARE, SELFPAY ==
[2021-12-15 13:43] VITALS: BMI 27.4
[2021-12-22] VITALS (15 sets, daily range): BP systolic 84–116; BP diastolic 40–71; PULSE 78–108; RESP 12–18; TEMP 35.8–37; O2SAT 94–98; BMI 27.4
--- NOTE | 2021-12-22 | DI.RAD.S_ITS ---
PROCEDURE: XR LUMBAR SPINE 2-3V INDICATIONS: L3-4 L4-5 TLIF TECHNIQUE: 2 intraoperative fluoroscopic views of the lumbar spine were acquired. COMPARISON: [facility], [place], XR LUMBAR SPINE 2-3V, 01/26/2018, 11:32. FINDINGS: Intraoperative fluoroscopic images of lumbar spine shows posterior fusion and intervertebral spacer placement at L3-4 and L4-5 levels. IMPRESSION: Fluoro guidance was provided intraoperatively for posterior fusion at L3 through L5 levels. Dictated by: Madhu Ortiz M.D. on 12/22/2021 at 13:38 Approved by: Madhu Ortiz M.D. on 12/22/2021 at 13:38
[2021-12-22] MEDS: ACETAMINOPHEN 325 MG TABLET 975 MG PO (07:59)
[2021-12-22] MEDS: LACTATED RINGERS 1,000 ML 42 ML IV ×3 (08:00→12:23)
[2021-12-22] MEDS: ALBUTEROL 2.5 MG/3 ML NEB (ADULT) INH (08:18)
--- NOTE | 2021-12-22 08:38 | PM.PREOP ---
Pre-operative Note COVID-19 COVID-19 status: Negative Result date/Date tested (Pos, Neg/Pending): 12/21/21 Criteria for continued procedure: Expected advancement of disease process, Possibility delay results in more complex future surgery or treatment, Increased loss of function, Continuing or worsening of significant or severe pain, Deterioration of the patient's condition or overall health and Delay expected to result in less-positive ultimate med/surg outcome Interval Note History & Physical reviewed/Exam performed by Physician: Yes Changes to H&P: No
[2021-12-22] MEDS: CEFAZOLIN 2 GM/20 ML SYRINGE IV (09:14)
--- NOTE | 2021-12-22 09:26 | SUR.OPER ---
Prone on spine table, head in foam head support, padded chest and pelvic supports, gel pad at knees, lower legs supported by pillows; nipples, genitalia and toes free of pressure, arms secured on foam padded arm boards at <90 degrees abduction. Tape over blanket at thigh secured to table.
[2021-12-22] MEDS: BUPIVACAINE LIPOSOME 266 MG/20 ML VIAL INJ (09:30)
[2021-12-22] MEDS: BUPIVACAINE 0.25% (PF) 30 ML, EPINEPHrine 0.3 MG INJ (09:31)
--- NOTE | 2021-12-22 13:31 | P.OP_ITS ---
Operative Date/Time/Diagnoses Date of procedure: 12/22/21 Time of procedure: 08:45 Pre-op diagnosis: 1. L2-3, L3-4, L4-5 spinal stenosis with neurogenic claudication 2. L4-5 spondylolisthesis Post-op diagnosis: same Procedure & Clinicians Procedure: 1. L3-4, L4-5 Postero-lateral and posterior interbody fusion 2. L3-4, L4-5 interbody cage placement. 3. L3-4, L4-5 decompressive laminectomy with bilateral facetecomies 4. L3-4, L4-5 Posterior segmental instrumentation 5. L2-3 left hemilaminectomy 6. [place] of bone marrow from iliac crest 7. Utilization of microsurgical technique and operating microscope Same procedure as scheduled: Yes Indications: Patient has been having chronic back pain and worsening lumbar radiculopathy. Patient failed multiple conservative management with worsening pain weakness and numbness in her lower extremity. Patient has been having difficulty performing activity of daily living. After discussing risks benefits of treatment options, patient elected proceed with surgery. Surgeon: Erlinda Sauer Roadway Designer: Ai Watson Click Yes if Unassisted: No Anesthesia Type: General Operative Notes Closure Type: primary Prosthetic devices, grafts, tissues, transplants, or devices: Globus CREO MIS screws, Rise cages Applied: catheter Estimated Blood Loss (mL): 200 Blood products transfused: none Procedure in detail: Patient was seen in the preoperative area. Risks and benefits of the surgery was discussed with the patient. Informed consent was obtained from the patient and placed in the chart. Surgical site was marked. Patient was taken to the operative room. General anesthesia was administered. Prophylactic antibiotic was given to the patient less than 30 min before the incision was made. Patient was placed into a prone position on the [place] table. Patient's back was then prepped and draped in the sterile fashion. Time-out was performed at this time. After patient was prepped and draped, patient's PSIS was palpated and marked bilaterally. Small 1 cm incision was made over the PSIS for placement of the reference probes. Two trocar was placed into the PSIS 1 on each side. The reference probe was attached to the trocar of the reference apparatus. At this time the C-arm imaging was used to confirm AP and lateral of L3, L4-L5 vertebrae and merged the C-arm imaging using the [place] robotic navigation system with the CT of the lumbar spine. After successful merging was completed and confirmed, skin marker was used to pancho out the skin incision using the [place] robotic arm. Bilateral incision was made at this time. Pre templated trajectory was used and guided using the [place] robotic navigation system for bilateral L3 L4, L5 pedicle screw placement. This was done by using the robotic arm to guide the high-speed bur to make a cortical entry point. Next a drill was placed also using the robotic arm and guided using the navigation system drilling partially through bilateral L3, L4, L5 pedicles. Next L3, L4, L5 pedicle screws it was pre templated and measured was placed onto the power waste collection driver and inserted into the pedicles bilaterally. After all 6 screws were placed C-arm imaging was taken of both AP and lateral to confirm the placement. Excellent placement of the screws were confirmed and a matched precisely with the pre planned screw placement using the navigation system. MARs retractor was inserted using [employer]ostics[employer] guidence. SecondLeapus MARS retractors was placed inside the incision and docked onto the L3, L4 lamina. Using microsurgical technique and operating microscope, a L4, L5 laminectomy and L3-4, L4-5 facetectomy was performed using a [place] rongeur. Patient was found have severe lateral recess and neural foramen stenosis which was fully decompressed after the laminectomy facetectomy. More than 75% of the facets were removed during the process of decompression rendering L3-4, L4-5 level grossly unstable and required a fusion procedure at the same time. The disc space at L3-4, L4-5 was identified, and a total diskectomy was performed at L3- 4, L4-5 level. The endplates were decorticated using a rasp and shaver. The total diskectomy and decortication was performed at L3-4, L4-5 level in order to to accomplish a L3-4, L4-5 fusion. The local bone from the laminectomy and facetectomy was saved for local bone grafting. After the total diskectomy and decortication was completed, Trifecta bone graft material was combined with local bone that was harvested earlier. MARS retractor was then re-positioned over the L2 lamina on the left sided. Using microsurgical technique and operating microscope, a L2 hemilaminectomy was performed. Ligamentus flavum was resected to further decompress the lateral recess. At this time, a separate skin is incision was made over the iliac crest. A Jamshidi needle was inserted into the iliac crest through a separate skin incision. 5 cc of bone marrow aspiration was obtained through the separate skin incision using a Jamshidi needle from the iliac crest. The bone marrow aspiration was combined with local bone and the Trifecta bone grafting material. The bone grafting material was placed into the L3-4, L4-5 interbody space along with expandable cages. One cage each was inserted into the L3-4 L4-5 interbody space along with bone graft material. The cage was expanded to its maximum height using the torque limiting screwdriver. The disc preparation as well as the cage insertion were also performed under navigation guidance. After the cage was placed, AP and lateral C-arm imaging was taken to confirm placement of the cage and excellent position was confirmed. Globus MARS retractor was inserted and docked onto the L3-4, L4-5 posterolateral gutter on the right side. Using the power drill, posterior-lateral decortication was performed at L3-4, L4-5 level until bleeding cortical bone was identified. The remaining bone grafting material was placed into the L3-4, L4-5 posterior lateral gutter he order to accomplish posterolateral fusion at the L3- 4, L4-5 level. At this time the tulips were attached to the L3, L4-L5 pedicle screw shanks. After measuring the length of the rods, they were inserted into the tulips of the pedicle screws and locked in place using locking caps and torque limiting screwdriver bilaterally. Total 6 caps and 2 titanium rods was used in order to complete the posterior instrumentation construct. After all the hardware was placed, and confirmed with AP and lateral C-arm imaging, the wound was then irrigated with sterile normal saline and packed with Ray-Ga gauze for 3 min to accomplish hemostasis. After the gauze was removed the deep fascia was closed with #1 Vicryl suture. The subcutaneous layer was closed with 2-0 Vicryl. The skin was closed with skin jessica. Patient tolerated the procedure well. There were no complications. Neuro monitoring system was used to monitor patient's neurologic status throughout entire procedure. There was no disturbance of the neural monitoring signals throughout the case. Complications: none Post-operative Condition: stable Disposition: PACU Plan for aftercare: Admit to inpatient hospital
[2021-12-22] MEDS: OXYCODONE IR 5 MG TABLET PO ×2 (14:10→14:47)
[2021-12-22] MEDS: ONDANSETRON 4 MG/2 ML INJ IV (14:20)
--- NOTE | 2021-12-22 14:42 | SUR.PHASEI ---
pt resting comfotably in bed. Sleeping, but easily arousable. minimal complaints of pain noted per pt statement.
--- NOTE | 2021-12-22 14:51 | SUR.PHASEI ---
Report called to Kirk HERNANDEZ and opportunity for questions given. Pt updated on plan of care and is agreeable. Pt going to room 212.
[2021-12-22] MEDS: SODIUM CHLORIDE 0.9% 1,000 ML 100 ML IV (15:29)
[2021-12-22] MEDS: OXYCODONE IR 5 MG TABLET 10 MG PO ×2 (15:32→19:36)
--- NOTE | 2021-12-22 16:20 | PC.NURSE ---
patient arrived to floor from PACU. Patient was unable to stay awake and answer keenly to admission questions. Reports pain 10/10. CMS and PP intact. Spouse at bedside. Patient orientated to room, bed alarm on and call hernandez w/ in reach. Dave in place, IVF running per orders.
[2021-12-22] MEDS: CLINDAMYCIN 600 MG/50 ML PIGGYBACK 50 MG IV (17:31)
[2021-12-22] MEDS: CYCLOBENZAPRINE 10 MG TABLET PO (17:38)
[2021-12-22] MEDS: ACETAMINOPHEN 325 MG TABLET 650 MG PO (19:35)
[2021-12-22] MEDS: hydrOXYzine pamoate 25 MG CAPSULE 50 MG PO (20:04)
[2021-12-22] MEDS: SENNOSIDES 8.6 MG TABLET 17.2 MG PO (21:28)
[2021-12-22] MEDS: TOPIRAMATE 100 MG TABLET PO (21:28)
[2021-12-22] MEDS: AMITRIPTYLINE 10 MG TABLET PO (21:28)
[2021-12-22] MEDS: DOCUSATE 100 MG CAPSULE PO (21:29)
[2021-12-22] MEDS: HYDROMORPHONE 0.5 MG INJ IV ×2 (21:59→22:00)
[2021-12-23] MEDS: CLINDAMYCIN 600 MG/50 ML PIGGYBACK 50 MG IV (01:12)
[2021-12-23] MEDS: TRAZODONE 100 MG TABLET PO ×2 (01:13→23:36)
[2021-12-23] MEDS: HYDROMORPHONE 0.5 MG INJ IV ×2 (01:15→04:19)
[2021-12-23] MEDS: hydrOXYzine pamoate 25 MG CAPSULE PO ×3 (04:21→21:22)
[2021-12-23 06:46] LABS: Hematocrit 27.3 % (36-46); Hemoglobin 9.2 g/dL (12.0-16.0)
--- NOTE | 2021-12-23 07:37 | PM.PNPO.1 ---
Subjective Subjective Date Patient Seen: 12/23/21 Time Patient Seen: 07:37 Interval history: The patient is complaining of moderate to severe low back pain this morning. She notes that the pain radiating down her bilateral legs has resolved and is now located primarily in her lumbar spine. She denies any fevers, chills, night sweats. She is having difficulty with pain management at the moment. Her plan is to discharge home when she is safe. She denies any dizziness or lightheadedness. Exam Vital Signs (past 8 hours): Oxygen Delivery Method Nasal Cannula Oxygen Flow Rate 0 Narrative Exam Narrative: Pleasant 71-year-old female, resting comfortably in bed, mild distress due to pain with movement. Dressings demonstrates some serosanguineous drainage, no surrounding erythema or induration. Bilateral lower extremities: Motor functions are grossly intact, sensations are grossly intact to light touch, calves are soft and nontender to palpation. Objective Labs Result Diagrams: 12/23/21 06:06 Labs: Laboratory Results - last 24 hr 12/23/21 06:06 Hgb 9.2 L Hct 27.3 L PFSH Medical History ADHD Anxiety Asthma Chronic back pain Depression Elevated liver enzymes Hypothyroid IBS (irritable bowel syndrome) Injury of common bile duct during operative procedure Major depressive disorder, recurrent episode, moderate with anxious distress Migraines Obstructive sleep apnea Prediabetes PTSD (post-traumatic stress disorder) Surgical History H/O abdominoplasty H/O bilateral breast implants History of carpal tunnel surgery of right wrist History of cholecystectomy History of Kym-en-Y gastric bypass History of surgery History of tonsillectomy Hx of bilateral cataract extraction Hx of decompression of ulnar nerve S/P cervical spinal fusion S/P SELMA-BSO Social History household members: spouse occupational status: employed Smoking Status: Former smoker alcohol intake: current substance use type: does not use Assessment & Plan Post-op Postoperative Procedures: Procedures Operation Date: 12/22/21 08:45 Actual Procedure Side Surgeon p L2-3 hemilaminectomy, L3-4, L4-5 TLIF w. posterior instrumentation Erlinda Sauer MD Postoperative day: 1 Postoperative status: marginal pain control Postoperative status narrative: Difficulty with pain management status post L2-3 hemilaminectomy, L3-4, L4-5 TLIF Postoperative plan narrative: -mobilize with PT. Weightbearing as tolerated front wheel walker. Limit bending, lifting, twisting - monitor for orthostatic hypotension. The patient is currently asymptomatic but has not been out of bed yet. -Encouraged more consistent p.o. pain medications. May need to consider adding oral Dilaudid, the patient was previously a chronic pain management patient. -DC home, likely tomorrow, once cleared by PT and better pain management. Monitor orthostatic hypotension. Quality VTE Deep Vein Thrombosis/Pulmonary Embolism Present on Admission: No
[2021-12-23 07:50] VITALS: BP 103/51; PULSE 84; RESP 17; TEMP 36.6; O2SAT 97
[2021-12-23] MEDS: buPROPion XL 150 MG TAB 300 MG PO (08:44)
[2021-12-23] MEDS: CHOLECALCIFEROL (VITAMIN D3) 1,000 UNIT TABLET 1000 UNIT PO (08:44)
[2021-12-23] MEDS: DOCUSATE 100 MG CAPSULE PO ×2 (08:44→21:24)
[2021-12-23] MEDS: DULOXETINE 30 MG CAPSULE 90 MG PO (08:45)
[2021-12-23] MEDS: HYDROMORPHONE 2 MG TABLET PO ×5 (08:45→23:35)
[2021-12-23] MEDS: valACYclovir 500 MG TABLET PO (08:45)
[2021-12-23] MEDS: TOPIRAMATE 100 MG TABLET PO ×2 (08:45→21:23)
[2021-12-23] MEDS: LEVOTHYROXINE 137 MCG TABLET PO (08:54)
--- NOTE | 2021-12-23 10:30 | PT.IIE ---
Current Diagnoses Spondylolisthesis, lumbar region (12/22/21) Spinal stenosis, lumbar region with neurogenic claudication (12/22/21) Surgery Performed Operation Date: 12/22/21 08:45 Actual Procedures p L2-3 hemilaminectomy, L3-4, L4-5 TLIF w. posterior instrumentation - Erlinda Sauer MD Medical History (Last Reviewed 12/23/21 @ 07:38 by Cherry Lang PA-C) ADHD Anxiety Asthma Chronic back pain Depression Elevated liver enzymes Hypothyroid IBS (irritable bowel syndrome) Injury of common bile duct during operative procedure Major depressive disorder, recurrent episode, moderate with anxious distress Migraines Obstructive sleep apnea Prediabetes PTSD (post-traumatic stress disorder) Physical Therapy Inpatient Evaluation/Re-Eval M1 PT/OT-IP Prior Functional Status Start: 12/23/21 12:06 Freq: NEEDED Status: Active Protocol: Document 12/23/21 10:30 AB (Rec: 12/23/21 12:24 AB [email or web address]) Medical Review Prior Functional Status Medical History Reviewed Yes Communication able to make needs known Mobility and Gait pt stated that she is independent with all mobilities and ambulation without AD; has h/o falls with 5 falls for this year already and last fall was 3 weeks ago Social History Household Members spouse Living Arrangements House Number of Floors (Floors) Two Floors Number of Stairs To Enter/Railing? stated that she has 2 flights of stairs : first flight has L rail ascending and 2nd flight has L rail and R banisters Home Environment High Toilet,Walk in Shower, Built-In Shower Seat Home Equipment Four Wheel Walker,Hand Held Shower,Grab Bars In Shower M2 PT-IP Current Condition Start: 12/23/21 12:06 Freq: NEEDED Status: Active Protocol: Document 12/23/21 10:30 AB (Rec: 12/23/21 12:24 AB [email or web address]) Physical Therapy Current Condition Current Condition Evaluation Date 12/23/21 Treatment Diagnosis s/p L3-4, L4-5 TLIF; difficulty in walking Onset Date 12/22/21 M3 PT-IP Subjective Start: 12/23/21 12:06 Freq: NEEDED Status: Active Protocol: Document 12/23/21 10:30 AB (Rec: 12/23/21 12:24 AB [email or web address]) Subjective Physical Therapy Visit Type Type Initial Evaluation Visit Start Time 10:30 Visit Stop Time 11:07 Total Visit Minutes 37 Number of ASIC VERIFICATION ENGINEER Visits 0 Physical Therapy Visit Comments Patient Comments agreed to do PT Therapy Pain Assessment Pain When Pain Assessed At Rest Pain Present Pain Present Pain Reported Location Lower Back Intensity 7 Scale Used Numeric (0 - 10) Pain Management Techniques Apply Cold,Distraction, Modification of Treatment,Re- positioning,Timing of Activity with Medications M4 PT-IP Mobility and Gait Start: 12/23/21 12:06 Freq: NEEDED Status: Active Protocol: Document 12/23/21 10:30 AB (Rec: 12/23/21 12:24 AB [email or web address]) PT-Bed Mobility Assessment Rolling Type of Rolling Log Rolling Level of Assist Maximal Assistance Supine to Sit Supine to Sit Maximum Assistance PT-Transfer Assessment Sit to and From Stand Sit to and from Stand Minimal Assistance,1 Person Assistance,Use of Upper Extremities Equipment Transfer Assistive Device Gait Belt,Front Wheeled Walker Orthotic/Prosthetic Devices or Brace: No Transfers Transfer Destination Chair Transfer Technique ambulated Transfer Ability Level of Assist Minimal Assistance,1 Person Assistance,Use of Upper Extremities Comments Mobility Comments educated pt on back precautions. Pt. has memory issues and gets anxious easily . BP in supine: 121/77 completed supine to sit log roll max A and max cues. pt stated that she knows how to do log roll cause she has been doing it at home but then will ask PT on what is the next step and requires max cues to complete. able to sit on EOB SBA. BP: 124/82 SC: 128. completed sit to stand min A and cues and ambulated in room using FWW min A ~ 20 ft. pt agreed to sit up on chair. positioned on chair. call light and table placed within reach. Gait Assessment Gait Gait Assistance Required: Minimum Assistance Distance (Feet) 20 Able to Maintain Weight Bearing Status Yes During Gait Assistive Devices Assistive Device Gait Belt,Front Wheeled Walker Orthotic/Prosthetic Devices or Brace: No Gait Deviations General Gait Pattern Decreased Stride Length, Decreased Feet Clearance Factors Limiting Gait Function Factors Limiting Gait Function Decreased Activity Tolerance, Decreased Strength,Difficulty Following Directions,Limited Range of Motion,Pain,Poor Balance,Poor Safety Awareness PT-Balance Assessment Sitting Balance and Reactions Static Sitting Balance Ability Good Dynamic Sitting Balance Ability Good Standing Balance and Reactions Static Standing Balance Ability Fair Dynamic Standing Balance Ability Fair Device Used FWW M5 PT-IP Objective Assessments Start: 12/23/21 12:06 Freq: NEEDED Status: Active Protocol: Document 12/23/21 10:30 AB (Rec: 12/23/21 12:24 AB [email or web address]) Orientation Orientation/Cognition Level of Alertness Alert Orientation Name,Place,Situation Language Function Ability Hard of Hearing Safety Awareness Decreased Safety Awareness Memory Description Short Term Impaired Gross Range of Motion Lower Extremity ROM Impairments increase LLE guarding during PROM Strength Lower Extremity Strength Assessment Left Impaired Hip 3-/5 Knee 3+/5 Sensation Assessment Sensation Gross Sensation WNL Muscle Tone Muscle Tone WNL Yes M6 PT-IP Treatment Start: 12/23/21 12:06 Freq: NEEDED Status: Active Protocol: Document 12/23/21 10:30 AB (Rec: 12/23/21 12:24 AB [email or web address]) Physical Therapy Treatment Education Education Provided Precautions,Weight Bearing Status,Post-Op Packet,Safety M7 PT-IP Assessment and Plan Start: 12/23/21 12:06 Freq: NEEDED Status: Active Protocol: Document 12/23/21 10:30 AB (Rec: 12/23/21 12:24 AB [email or web address]) PT Summary Assessment and Plan Potential Rehabilitation Potential Good Status of Condition at Evaluation Evolving Summary Impairments Pain,ROM,Strength,Balance, Coordination,Sensation,Tone, Cognition,Bed Mobility, Transfers,Gait,Activity Tolerance Assessment Summary pt requiring max A with bed mobility, min A for transfers and ambulation. c/o increase back pain affecting mobility. pt with h/o falls. pt stated that her spouse will be off work to assist her for a few days but may be able to off work longer if needed. will assess pt's progress. will conduct caregiver training when appropriate as well as stair climbing training. Goals Bed Mobility Goal Independent Transfer Goal Independent,Front Wheeled Walker Gait Goal Independent,Front Wheel Walker Gait Distance 250 Other Goals ambulation using 4WW SBA 250 ft 25 steps using L rail SBA Days to Meet Goals 5 Frequency of Treatment Frequency Of Treatment Twice a Day Treatment Plan Physical Therapy Treatment Plan Bed Mobility Training,Transfer Training,Gait Training, Therapeutic Exercise,Balance Retraining,Post Op Education, Discharge Planning,Hot or Cold Pack,Neuromuscular Re-ed, Coordination Retraining,Manual Therapy Precautions Lumbar Precautions Log Roll,No Twisting,Limit Bending,Lifting Restriction of 10 lbs,Gait Belt above Incisional Area Recommendations To Nursing Amount of Assist Needed 1 Person Assist Discharge Recommendations PT Discharge Recommendations Home with Assistance,Home Health Equipment Needed for Home Before FWW if not safe with 4WW Discharge Transportation Needs at Discharge Private Vehicle
--- NOTE | 2021-12-23 10:51 | CM.DANOTE ---
Addendum entered by Susanna Bojorquez R.N. 12/23/21 15:58: Annalise from [facility] has confirmed acceptance, she will submit authorization this pm. [place] Annalise is hopeful to have auth tomorrow. Annalise already has vaccination information. Patient is wanting to go to [facility]. Will complete PASSR. Addendum entered by Susanna Bojorquez R.N. 12/23/21 13:11: Spoke to Fatmata Yuan, and she indicated, she may benefit with rehab, has several stairs at home. Met with patient, she is open to skilled rehab if needed. She asked if her insurance covered it, and let her know that the facility of acceptance would need to get prior auth. Gave her the Medicare Choice List for her to review. She is not sure about the one here in the [facility], but gave permission to send referrals. Called Annalise at [facility], and she as worked with [employer] before, and auth may take about 24 hours. Called Susan at [facility], and they also take [employer]. Spoke to Christa at [facility], and they are not in [employer] network, but [facility] is. So far, [facility] has referral, as well as [facility] and [facility]. Will follow up with patient. Original Note: DCP: Case received, EMR reviewed and met with patient. Introduced self and role. Was able to obtain information regarding patient's baseline activity level prior to her surgery. DCP assessment completed with information currently available. Patient is a 71 year old female who admitted yesterday morning to the care of the orthopedic team. PCP: Dr. Boyd. Payer: confirmed: [employer] Patient came to the hospital via private vehicle for a surgical procedure. Patient had L3-4, L4-5 Posteo-lateral and posterior interbody fusion. Patient has history of spinal stenosis. Met with patient in her room. She is alert and oriented. She resides in [place] with her spouse, Jacoby. At patient's baseline, she is independent, but was able to get a FWW for home use. Confirmed that she does have some stairs that she will need to navigate in her home. She has not yet worked with the therapy team. P: DCP to continue to follow for any needs. Will see how patient does with P.T. Susanna Bojorquez RN/Pipe Fittings Molder Discharge Planning/Care Management CM Discharge Assessment Start: 12/23/21 10:50 Freq: Status: Active Protocol: Document 12/23/21 10:50 (Rec: 12/23/21 10:51 [id number]) Discharge Planning Assessment Assigned Territory Business Manager Susanna Bojorquez RN/Pipe Fittings Molder Advance Directives? No Advance Directives on File No History Provided By Patient,Medical Record Prior Living Arrangements House Household Members spouse Type of transporation used prior to Drives own vehicle admit Independent with ADL's Yes Is patient alert and oriented? Yes Caregiver for Another No Barriers to Discharge No Discharge Plan Home Transportation Arrangement Spouse Referrals Initiated None needed Whiteboard Updated in Patient Room with Yes name and ext. # of Territory Business Manager Review Status In Process Next Review Type Continued Stay Review Pre-Anesthesia Assessment Start: 12/15/21 13:43 Freq: Status: Active Protocol: Document 12/15/21 13:43 CAB (Rec: 12/15/21 14:56 CAB [id number]) Pre-Anesthesia Assessment Patient Information Reviewed Via Phone Assessment Assessment Completed With Patient Comment Labs/ECG done per pt not here, COVID screen @ [facility] 12/20/21 Primary Care Provider Shaina Boyd Seen Specialist in Last 12 Months Yes Specialist Seen Orthopedist,Other Comment Neuro, GI Primary Language Peruvian Formwork Carpenter Required No Height 5 ft 5 in Weight 165 lb Body Mass Index (BMI) 27.4 Hearing Ability Normal Visual Assist Glasses Dentition Type Teeth, Natural Present,Teeth, Missing Barriers to Learning Memory Hx Anesthesia Reactions Yes: woke during surgery x1 over 25 years ago Hx Family Anesthesia Reaction No Hx Malignant Hyperthermia No Hx Blood Transfusions No Hx Blood Transfusion Reaction No Anesthesia Review Requested No alcohol intake current alcohol intake frequency a few times a month Smoking Status Former smoker how long ago did patient quit smoking Quit age 61 Substance Use Type does not use Pain Present Pain Reported Musculoskeletal Symptoms Abnormal Gait,Back Pain, Difficulty Walking,Radiating Pain into Limb History of Falling (Recent or History of Yes ) Patient is completely paralyzed or No completely immobile Mental Status Oriented to own ability Is patient on oxygen? No Does patient have GARRISON/SOB Yes: r/t asthma Hx Sleep Apnea Yes: No CPAP after gastric bypass surgery Currently Taking a Beta Cash No Hx Chest Pain No Hx SOB Yes: r/t asthma per pt, cardiac w/u for GARRISON Hx Syncope or Dizziness Yes: Chronic dizziness Anti-Coagulant Therapy No Has a Yard Foreman Yes: Dr. Sarmiento Cardiology Cardiac Testing Yes: Nuc stress test Hx Pacemaker/ICD No Pacemaker Rep Required? No Cardiac Clearance Received Yes Comment Cardiac records put in surgery folder for dos Diet Type At Home Regular dysphagia No Gastrointestinal Symptoms Cramping Comment r/t IBS Bladder Pattern Incontinent,Nocturia,Retention ,Urgency Urinary Catheter Present No Hx Urinary Self Catheterization No Diabetes No Patient No Lactating No Hx Drug Resistant Organism No Presence of External or Internal Medical Yes: titanium mulugeta/ screws in Devices neck Have you had any close contact with No someone diagnosed with COVID-19? Received a COVID vaccine? Yes Received all doses? Yes Marital Status Lives With spouse Prior Living Arrangements House Number of Floors (Floors) Two Floors Support System Spouse Does the Patient Have Assistance After Yes Surgery Patient Discharge Plan Description Return Home Comment Pt advised 3 day length of stay per surgeon Feels Safe in Current Environment Yes Been Physically Hurt or Threatened By a No Person in Current Environment Do you have thoughts of harming yourself None or others? Are you currently considering suicide? No Do you have a plan to hurt yourself or No Plan others? Do You Have Any Spiritual Beliefs That No May Affect Your HC Choices? Do You Have Any Cultural Practices That No May Affect Your HC Choices? Who Can We Speak to About Patient's Care Family, friends Identifying Code for Release of Patient Declines to issue Information Health Care Proxy/Next of Kin Jacoby () Health Care Proxy Emergency Contact Name Jacoby () Emergency Contact Advance Directives? Yes: Still working on Advance Directives on File No Requested Patient Bring Advanced Yes Directives DOS Power of Hvac Services Professional No PAC Instructions Durable medical equipment, Medications to take/avoid, Nasal antibiotic,No ETOH/ petroleum product on skin DOS, NPO,Post-op transportation,Pre -surgical wash,Sturdy shoes/ comfortable clothes,Do not bring valuables and remove jewelry
[2021-12-23 11:45] VITALS: BP 97/50; PULSE 117; RESP 16; TEMP 36.1; O2SAT 93
--- NOTE | 2021-12-23 12:07 | OT.IP.EVAL ---
Current Diagnoses Spondylolisthesis, lumbar region (12/22/21) Spinal stenosis, lumbar region with neurogenic claudication (12/22/21) Surgery Performed Operation Date: 12/22/21 08:45 Actual Procedures p L2-3 hemilaminectomy, L3-4, L4-5 TLIF w. posterior instrumentation - Erlinda Sauer MD Past Medical History (Last Reviewed 12/23/21 @ 07:38 by Cherry Lang PA-C) ADHD Anxiety Asthma Chronic back pain Depression Elevated liver enzymes H/O abdominoplasty H/O bilateral breast implants History of carpal tunnel surgery of right wrist History of cholecystectomy History of Kym-en-Y gastric bypass History of surgery History of tonsillectomy Hx of bilateral cataract extraction Hx of decompression of ulnar nerve Hypothyroid IBS (irritable bowel syndrome) Injury of common bile duct during operative procedure Major depressive disorder, recurrent episode, moderate with anxious distress Migraines Obstructive sleep apnea Prediabetes PTSD (post-traumatic stress disorder) S/P cervical spinal fusion S/P SELMA-BSO Surgical History (Last Reviewed 12/23/21 @ 07:38 by Cherry Lang PA-C) H/O abdominoplasty H/O bilateral breast implants History of carpal tunnel surgery of right wrist History of cholecystectomy History of Kym-en-Y gastric bypass History of surgery History of tonsillectomy Hx of bilateral cataract extraction Hx of decompression of ulnar nerve S/P cervical spinal fusion S/P SELMA-BSO Occupational Therapy Inpatient Evaluation/Re-Eval M1 PT/OT-IP Prior Functional Status Start: 12/23/21 12:06 Freq: NEEDED Status: Active Protocol: Document 12/23/21 12:15 [facility] (Rec: 12/23/21 12:38 [facility] [id number]) Medical Review Prior Functional Status Communication Independent however pt admits to having short term memory issues Mobility and Gait Pt states used a cane or her to lean on when out , but at home usually furniture cruises. Activities of Daily Living and IADL's Pt's needing assist her bra and anything that required reaching over head due to pain and limited end range for BUE . Prior Functional Level (Other details) Pt states her can only take 2 days off to assist her at home, in addition pt states her will not be able to lift her. Social History Household Members spouse Living Arrangements House Number of Floors (Floors) Two Floors Number of Stairs To Enter/Railing? From the garage 12 steps with left hand rail and then landing and 12 steps with left rail and per pt spindles on the right side to hold onto. Home Environment High Toilet,Walk in Shower Home Equipment Four Wheel Walker,Straight Cane,Hand Held Shower,Long Handled Sponge,Metal Rolling Mill Operator,Sock Aid,Grab Bars In Shower Additional Social History Comment Pt states has a built in shower seat at home. M2 OT-IP Current Condition Start: 12/23/21 12:14 Freq: Status: Active Protocol: Document 12/23/21 12:15 [facility] (Rec: 12/23/21 12:38 [facility] [id number]) Occupational Therapy Current Condition Current Condition Evaluation Date 12/23/21 Treatment Diagnosis S/p L2-3 hemilaminectomy, L3-4 , L4-5 TLIF Diagnosis Onset Date 12/22/21 Post Operative Precautions Lumbar Precautions Log Roll,No Twisting,Limit Bending,Lifting Restriction of 10 lbs,Gait Belt above Incisional Area M3 OT- IP Subjective and Pain Start: 12/23/21 12:14 Freq: Status: Active Protocol: Document 12/23/21 12:15 [facility] (Rec: 12/23/21 12:38 [facility] [id number]) OT- Subjective Occupational Therapy Visit Type Type Initial Evaluation Visit Start Time 11:24 Visit Stop Time 12:07 Total Visit Minutes 43 Occupational Therapy Visit Comments Patient Comments Pt wanting to get back to bed. Patient/Caregiver Goals Pt wanting to go home but open to going to skilled rehab. OT Pain Assessment Pain When Pain Assessed At Rest Pain Present Pain Present Pain Reported Location Lower Back Intensity 8 Scale Used Numeric (0 - 10) M4 OT- IP ADL's Start: 12/23/21 12:14 Freq: Status: Active Protocol: Document 12/23/21 12:15 [facility] (Rec: 12/23/21 12:38 [facility] [id number]) OT [id number] Comments OT Self-Feeding Comments NOt at meal time. OT ADL-Grooming Comments OT Grooming Comments NOt performed. OT ADL-Oral Care Comments Oral Care Comments Pt not wanting to do at this time. Able to educate best to spit into a cup to best follow her back precautions during oral care needs. OT ADL-Dressing General Eval Lower Body Dressing Ability Moderate Assistance Areas Needing Assistance Socks Assistive Devices Dressing Assistive Devices Metal Rolling Mill Operator,Sock Aid Comments OT Dressing Comments Pt a bit confused and not thinking well and needing step by step instructions how to use the sock aid. Pt will greatly benefit from continued practice for LB dressing needs to be able to incorporate her back precautions. OT ADL-Toileting General Evaluation Toileting Ability Total Assistance Comments OT Toileting Comments Pt has jerez in place and states at home that she is incontinent as well. Pt states has to use the bathroom 4 times at night. If pt going home would be best to get a BSC. OT ADL-Bathing Comments OT Bathing Comments Not performed, to try tomorrow if pt is doing better to mobilize. M5 OT- IP IADL's Start: 12/23/21 12:14 Freq: Status: Active Protocol: Document 12/23/21 12:15 [facility] (Rec: 12/23/21 12:38 [facility] [id number]) OT-Instrumental Activities of Daily Living Home Safety Awareness Awareness of Need for Assistance at Home Decreased Awareness Ability to Problem Solve Emergency Unable to Problem Solve Situations Money Management Money Management Caregiver Provides Assistance Driving Driving Concerns Identified Regarding Safety Driving Comments Pt states has been considering stopping to drive as she states, I tend to fall asleep at traffic lights. Suggested and agreed that it would best for pt not to drive anymore. . M6 OT- IP Functional Cognition Start: 12/23/21 12:14 Freq: Status: Active Protocol: Document 12/23/21 12:15 [facility] (Rec: 12/23/21 12:38 [facility] [id number]) Cognitive Factors Limiting Selfcare Function Cognitive Ability Level of Alertness Alert,Confusional State Patient Orientation Name,Place,Situation Attention Span Ability Capable of Focused Attention, Capable of Sustained Attention Ability to Follow Commands Able to Follow One Step Commands with Increased Time, Able to Follow One Step Commands with Repetition Memory Description Short Term Impaired Safety Awareness Decreased Recall of Precautions,Decreased Ability to Apply Precautions, Underestimates Need for Assistance Problem Solving Ability Needs Assist to Identify Solutions Cognitive Comments Cognitive Assessment Comments Pt needing step by steps to follow for mobility needs of bed mobility, coming to stand , FWW safety and for back precautions for ADL needs. OT- Vision and Hearing OT- Hearing Assessment OT- Hearing Assessment WFL OT- Vision Assessment Visual Acuity Glasses For Reading M7 OT- IP Mobility and Balance Start: 12/23/21 12:14 Freq: Status: Active Protocol: Document 12/23/21 12:15 [facility] (Rec: 12/23/21 12:38 [facility] [id number]) OT- Bed Mobility Assessment Sit to Supine Sit to Supine Assist Maximum Assistance Scooting Scooting to Edge of Bed Maximum Assistance OT-Transfer Assessment Sit to and From Stand Sit to and from Stand Moderate Assistance,Maximum Assistance Transfers Transfer Ability Moderate Assistance Technique Transfer Destination Bed,Chair Transfer Technique Stand Step Pivot Devices Transfer Assistive Devices Gait Belt,Front Wheeled Walker Comments Mobility Comments MAX A to help pt slide forwards with use of green pad . Pt needing MOD/MAX A x1 to stand to FWW and assist to balance to transfer to the bed with MODA X 1. OT- Gait Assessment Comments Gait Ability Comments Pt just able to transfer to the bed at this time as too tired to walk anymore at this time. OT- Balance Assessment Sitting Balance and Reactions Static Sitting Balance Ability Good Dynamic Sitting Balance Ability Fair Standing Balance and Reactions Static Standing Balance Ability Poor M8 OT- IP Objective Assessments Start: 12/23/21 12:14 Freq: Status: Active Protocol: Document 12/23/21 12:15 [facility] (Rec: 12/23/21 12:38 [facility] [id number]) OT Gross Range of Motion Upper Extremity Range of Motion Assessment Bilaterally Impaired M9 OT- IP Assessment and Plan Start: 12/23/21 12:14 Freq: Status: Active Protocol: Document 12/23/21 12:15 [facility] (Rec: 12/23/21 12:38 [facility] [id number]) OT Summary Assessment and Plan Potential Rehabilitation Potential Good Analytic Complexity at Evaluation Low Summary OT Impairments Pain,Strength,Balance, Functional Cognition, Functional Mobility,Grooming, Dressing,Toileting,Bathing, Toilet Transfers,Shower Transfers,Activity Tolerance Progress Towards Goals Slow Progress due to Medical Issues,Slow Progress due to Activity Tolerance,Slow Progress due to Cognition Assessment Summary Pt low complexity and main barriers are steps, pain, having difficulty to recall and incorporate her back precautions, and now needing extensive assist to come to stand and for bed mobility needs. Pt would greatly benefit from skilled rehab to practice over and over back precautions for ADl and mobility needs as per pt has trouble with her memory and that her will only be home for 2 days to assist. In addition per pt , her is limited to be able to lift her. Goals Self-Feeding Goal Independent Grooming Goal Independent Dressing Goal Minimal Assistance Toileting Goal Independent Bathing Goal Standby Assistance Toilet Transfer Goal Independent Shower Transfer Goal Independent Patient/Caregiver Education Goal Caregiver Independent Assisting Patient Days to Meet Goals 10 Frequency of Treatment Frequency Of Treatment Once a Day Treatment Plan OT Treatment Plan ADL Training,Functional Cognition Training,Functional Mobility,Patient/Family Education,Discharge Planning Other Treatment Recommendations and Next practice LB dressing and Treatment Focus shower if appropriate Discharge Recommendations OT Discharge Recommendations SNF Rehab Transportation Needs at Discharge Wheelchair/Cabulance
[2021-12-23] MEDS: ACETAMINOPHEN 325 MG TABLET 650 MG PO ×3 (12:45→23:35)
--- NOTE | 2021-12-23 13:10 | PT.IPTN ---
Current Diagnoses Spondylolisthesis, lumbar region (12/22/21) Spinal stenosis, lumbar region with neurogenic claudication (12/22/21) Surgery Performed Operation Date: 12/22/21 08:45 Actual Procedures p L2-3 hemilaminectomy, L3-4, L4-5 TLIF w. posterior instrumentation - Erlinda Sauer MD Physical Therapy Treatment Note M2 PT-IP Current Condition Start: 12/23/21 12:06 Freq: NEEDED Status: Active Protocol: Document 12/23/21 10:30 [facility] (Rec: 12/23/21 12:24 AB [id number]) Physical Therapy Current Condition Current Condition Evaluation Date 12/23/21 Treatment Diagnosis s/p L3-4, L4-5 TLIF; difficulty in walking Onset Date 12/22/21 M3 PT-IP Subjective Start: 12/23/21 12:06 Freq: NEEDED Status: Active Protocol: Document 12/23/21 13:10 [facility] (Rec: 12/23/21 14:23 AB [id number]) Subjective Physical Therapy Visit Type Type Treatment Note Visit Start Time 13:10 Visit Stop Time 14:07 Total Visit Minutes 57 Number of SECURITY OPERATIONS ANALYST Visits 0 Physical Therapy Visit Comments Patient Comments agreeable to do PT Therapy Pain Assessment Pain When Pain Assessed During Mobility Pain Present Pain Present Pain Reported Location Lower Back Intensity 8 Scale Used Numeric (0 - 10) Pain Behaviors Guarding Pain Management Techniques Distraction,Modification of Treatment,Re-positioning, Timing of Activity with Medications M4 PT-IP Mobility and Gait Start: 12/23/21 12:06 Freq: NEEDED Status: Active Protocol: Document 12/23/21 13:10 [facility] (Rec: 12/23/21 14:23 AB [id number]) PT-Bed Mobility Assessment Rolling Type of Rolling Log Rolling Level of Assist Standby Assistance Supine to Sit Supine to Sit Standby Assistance Sit to Supine Sit to Supine Contact Guard Assistance PT-Transfer Assessment Sit to and From Stand Sit to and from Stand Contact Guard Assistance, Minimal Assistance,1 Person Assistance,Use of Upper Extremities Equipment Transfer Assistive Device Gait Belt,Front Wheeled Walker Orthotic/Prosthetic Devices or Brace: No Transfers Transfer Destination Chair Transfer Technique ambulated Transfer Ability Level of Assist Contact Guard Assistance,1 Person Assistance,Use of Upper Extremities Comments Mobility Comments reviewed back precautions and pt able to recall 2/3. completed log roll supine to sit SBA. able to sit on EOB SBA. completedsit to stand from EOB CGA and ambulated in room ~ 20 ft using FWW CGA and sat on chair. reminded pt to obtain FWW. also informed regarding caregiver training. pt called her spouse to get a FWW and also informed to come in tomorrow at 10 am for caregiver training. pt agreed to do stairs. completed sit to stand from chair CGA to min A and cues and ambulated ~ 100 ft to the stairs. pt rested on w/c. educated on stair climbing techniques. pt completed sit to stand from w/c min A and completed up/down stairs CGA holding on to L rail with B hands. pt ambulated back to her room using FWW CGA. requested to go back to bed. completed sit to supine x 2 attempts with c/o increase back pain. completed CGA for maintaining upper back position to the side. positioned pt on the chair. call light and table placed within reach. Gait Assessment Gait Gait Assistance Required: Contact Guard Assist Distance (Feet) 100 Able to Maintain Weight Bearing Status Yes During Gait Assistive Devices Assistive Device Gait Belt,Front Wheeled Walker Orthotic/Prosthetic Devices or Brace: No Gait Deviations General Gait Pattern Decreased Stride Length, Decreased Feet Clearance,Step- to Gait Factors Limiting Gait Function Factors Limiting Gait Function Decreased Activity Tolerance, Decreased Strength,Difficulty Following Directions,Limited Range of Motion,Pain,Poor Balance,Poor Safety Awareness Comments Gait Comments pls refer to mobility section for details Stair Climbing Assessment Evaluation Level of Assist On Stairs Contact Guard Assistance Devices Stair Climbing Assistive Devices Left Railing Technique/Endurance Stair Climbing Direction Ascend and Descend Stair Climbing Technique Step to Step Number of Steps Climbed 3 Stair Climbing Set # Repetitions (reps) 1 M5 PT-IP Objective Assessments Start: 12/23/21 12:06 Freq: NEEDED Status: Active Protocol: Document 12/23/21 10:30 [facility] (Rec: 12/23/21 12:24 AB [id number]) Orientation Orientation/Cognition Level of Alertness Alert Orientation Name,Place,Situation Language Function Ability Hard of Hearing Safety Awareness Decreased Safety Awareness Memory Description Short Term Impaired Gross Range of Motion Lower Extremity ROM Impairments increase LLE guarding during PROM Strength Lower Extremity Strength Assessment Left Impaired Hip 3-/5 Knee 3+/5 Sensation Assessment Sensation Gross Sensation WNL Muscle Tone Muscle Tone WNL Yes M6 PT-IP Treatment Start: 12/23/21 12:06 Freq: NEEDED Status: Active Protocol: Document 12/23/21 13:10 AB (Rec: 12/23/21 14:23 AB [id number]) Physical Therapy Treatment Education Education Provided Precautions,Safety M7 PT-IP Assessment and Plan Start: 12/23/21 12:06 Freq: NEEDED Status: Active Protocol: Document 12/23/21 13:10 AB (Rec: 12/23/21 14:23 AB [id number]) PT Summary Assessment and Plan Potential Rehabilitation Potential Good Summary Impairments Pain,ROM,Strength,Balance, Coordination,Sensation,Tone, Cognition,Bed Mobility, Transfers,Gait,Activity Tolerance Progress Towards Goals Slow Progress due to Pain Assessment Summary pt progressing with mobility and requiring SBA to min A using fWW. c/o increase back pain with more activities. caregiver training set up tomorrow at 10 am. will continue to assess progress. will also need to complete stair climbing prior to d/c. Goals Bed Mobility Goal Independent Transfer Goal Independent,Front Wheeled Walker Gait Goal Independent,Front Wheel Walker Gait Distance 250 Other Goals ambulation using 4WW SBA 250 ft 25 steps using L rail SBA Days to Meet Goals 5 Frequency of Treatment Frequency Of Treatment Twice a Day Treatment Plan Physical Therapy Treatment Plan Bed Mobility Training,Transfer Training,Gait Training, Therapeutic Exercise,Balance Retraining,Post Op Education, Discharge Planning,Hot or Cold Pack,Neuromuscular Re-ed, Coordination Retraining,Manual Therapy Precautions Lumbar Precautions Log Roll,No Twisting,Limit Bending,Lifting Restriction of 10 lbs,Gait Belt above Incisional Area Recommendations To Nursing Amount of Assist Needed 1 Person Assist Discharge Recommendations PT Discharge Recommendations Home with Assistance,Home Health Equipment Needed for Home Before FWW if not safe with 4WW Discharge Transportation Needs at Discharge Private Vehicle
[2021-12-23 14:56] VITALS: O2SAT 96
[2021-12-23 17:00] VITALS: BP 99/55; PULSE 102; RESP 16; TEMP 37.4; O2SAT 95
[2021-12-23] MEDS: CYCLOBENZAPRINE 10 MG TABLET PO (17:42)
[2021-12-23 19:50] VITALS: PULSE 102; RESP 16; O2SAT 95
[2021-12-23] MEDS: SENNOSIDES 8.6 MG TABLET 17.2 MG PO (21:22)
[2021-12-23] MEDS: AMITRIPTYLINE 10 MG TABLET PO (21:22)
[2021-12-24] VITALS (8 sets, daily range): BP systolic 95–110; BP diastolic 59–76; PULSE 72–104; RESP 12–18; TEMP 36.9–37.2; O2SAT 93–96
[2021-12-24] MEDS: CYCLOBENZAPRINE 10 MG TABLET PO (04:15)
[2021-12-24] MEDS: HYDROMORPHONE 2 MG TABLET PO ×3 (04:16→21:02)
[2021-12-24] MEDS: LEVOTHYROXINE 137 MCG TABLET PO (06:14)
[2021-12-24] MEDS: ACETAMINOPHEN 325 MG TABLET 650 MG PO ×3 (06:14→17:50)
[2021-12-24 06:18] LABS: Hematocrit 27.2 % (36-46); Hemoglobin 9.1 g/dL (12.0-16.0)
--- NOTE | 2021-12-24 07:35 | CM.DPC ---
Addendum entered by Susanna Bojorquez R.N. 12/24/21 15:36: Called Annalise at [facility]. She indicated, medical review is still pending. If no acceptance, patient will be going home with home health. Spouse is supposed to be here this pm. Patient most likely will not discharge until tomorrow. Addendum entered by Susanna Bojorquez R.N. 12/24/21 13:17: Cherry Lang, JANUSZ, had left a message stating, she had spoken to peer to peer, doesn't look good for her being authorized. Still have no permanent decisions. Updated patient that she may need to go home with home health. Therapy is in her room. Patient wanted to know why skilled is not covered, let her know that this could be because it's elective surgery, and could be other factors. She does have a full flight of stairs in the home. Let patient know that she may just need to go home with home health. Patient is ok with home health, she has not had before, and has no preferences. P.T. stated, she is not doing as well today with her transfers. Called Annalise at [facility] and updated her that Cherry had called peer to peer number. Annalise will follow up with [facility] today. Addendum entered by Susanna Bojorquez R.N. 12/24/21 11:59: Annalise from [facility] called back and stated, She spoke to [place], and they will need a peer to peer to authorize patient to go to care home. She gave a phone number of: [phone] option 4. Also, she gave a phone number of [phone] for patient to appeal. Gave phone number to patient and explained this to her. Let her know that she may just need to go home with home health services. Called JANUSZ Lang and explained to her the situation. Gave her the phone number, and she will call the appeal number. let Cherry know, that she should explain mobility needs, rather than not having someone there to assist her, for insurances look at pain and mobility aspects. Will stand by and follow up later today. Patient is aware that she may need need to go home with home health. Original Note: DCP Cont: Spoke to ortho PACCherry. Let her know that plan on patient going to [facility], but insurance auth is pending. Cherry indicated that she would go ahead and complete orders in case auth comes in. Received a verbal for [facility], entered order. Left a message for [facility] that orders will be written, pending insurance auth. P: DCP to continue to work with [facility] for admission there as soon as auth comes in. Susanna Bojorquez RN/Web Site Specialist
--- NOTE | 2021-12-24 07:37 | PM.DS.1 ---
History of Present Illness History of Present Illness Date Patient Seen: 12/24/21 Time Patient Seen: 07:38 Chief complaint: Low back pain s/p lumbar TLIF Narrative: Patient is complaining of moderate to severe low back pain this morning. The oral Dilaudid is helping significantly. She is also describing some new numbness and tingling down bilateral legs and surgery. The majority of her pain is located in her lumbar spine. She worked with physical therapy yesterday. The discharge plan is currently to SNF instead of home. Discharge Providers Provider Discharge Date: 12/24/21 Primary care physician: Shaina Boyd DO Consults: 12/22/21 15:03 Consult to Occupational Therapy Evaluate & Treat Comment: Physician Instructions: Evaluate and treat Consult to Physical Therapy Evaluate & Treat Comment: Physician Instructions: Evaluate and Treat Discharge provider: Cherry Lang PA-C Summary Hospital Course Discharge Diagnosis: 1. L2-3, L3-4, L4-5 spinal stenosis with neurogenic claudication 2. L4-5 spondylolisthesis Hospital Course: Operative Date/Time/Diagnoses Date of procedure: 12/22/21 Time of procedure: 08:45 Procedure & Clinicians Procedure: 1. L3-4, L4-5 Postero-lateral and posterior interbody fusion 2. L3-4, L4-5 interbody cage placement. 3. L3-4, L4-5 decompressive laminectomy with bilateral facetecomies 4. L3-4, L4-5 Posterior segmental instrumentation 5. L2-3 left hemilaminectomy 6. [place] of bone marrow from iliac crest 7. Utilization of microsurgical technique and operating microscope Same procedure as scheduled: Yes Indications: ?Patient has been having chronic back pain and worsening lumbar radiculopathy. Patient failed multiple conservative management with worsening pain weakness and numbness in her lower extremity.? Patient has been having difficulty performing activity of daily living.? After discussing risks benefits of treatment options, patient elected proceed with surgery. Surgeon: Erlinda Sauer Chief Science Officer: Ai Watson Click Yes if Unassisted: No Anesthesia Type: General Operative Notes Closure Type: primary Prosthetic devices, grafts, tissues, transplants, or devices: Globus CREO MIS screws, Rise cages Applied: catheter Estimated Blood Loss (mL): 200 Blood products transfused: none Status at Discharge Cognitive/behavioral status at discharge: oriented Functional status at discharge: uses cane/walker Overall status at discharge: patient is progressing back to baseline Exam Vital Signs (past 8 hours): - 12/24/21 00:15 12/24/21 04:30 Temperature 98.9 F 98.6 F Pulse Rate 94 H 84 Respiratory Rate 14 12 Blood Pressure 109/62 109/59 L Pulse Oximetry 93 93 Oxygen Delivery Method Room Air Oxygen Flow Rate 0 Narrative Exam Narrative: Pleasant 71-year-old female, resting comfortably in bed, no acute distress. Dressing demonstrates serosanguineous drainage on the left lateral incision, no surrounding erythema or induration. Bilateral lower extremity: Motor functions are grossly intact, sensation is grossly intact to light touch, calves are soft and nontender palpation. Objective Labs Result Diagrams: 12/24/21 05:50 Labs: Laboratory Results - last 24 hr 12/24/21 05:50 Hgb 9.1 L Hct 27.2 L PFSH Medical History ADHD Anxiety Asthma Chronic back pain Depression Elevated liver enzymes Hypothyroid IBS (irritable bowel syndrome) Injury of common bile duct during operative procedure Major depressive disorder, recurrent episode, moderate with anxious distress Migraines Obstructive sleep apnea Prediabetes PTSD (post-traumatic stress disorder) Surgical History H/O abdominoplasty H/O bilateral breast implants History of carpal tunnel surgery of right wrist History of cholecystectomy History of Kym-en-Y gastric bypass History of surgery History of tonsillectomy Hx of bilateral cataract extraction Hx of decompression of ulnar nerve S/P cervical spinal fusion S/P SELMA-BSO Social History household members: spouse occupational status: employed Smoking Status: Former smoker alcohol intake: current substance use type: does not use Discharge Assessment & Plan Assessment and Plan Assessment: -stable status post L2-3 hemilaminectomy, L3-4, L4-5 TLIF -marginal postoperative pain control, improving -postoperative hemorrhagic anemia, asymptomatic Plan of Treatment: -mobilize with PT. Limit bending, lifting, twisting x6 weeks. Weightbearing as tolerated with front wheel walker -continue with multimodal pain management -DC to SNF when cleared by PT Discharge Plan Discharge Plan Patient Disposition: SNF Transfer to: [facility] I certify the postop hospital chcf care is medically necessary on a continuing basis for any conditions for which he/ she received care during this hospitalization.: Yes The receiving facility has agreed to accept transfer and provide medical treatment.: Yes Discharge orders & Medications Discharge Orders: Discharge (Order); Ordered 12/24/21 Ordered By: Cherry Lang Prescriptions: New hydromorphone 2 mg Tablet 2 mg PO Q3H PRN (Reason: Pain, Severe (7-10)) Qty: 42 0RF docusate sodium 100 mg Capsule 100 mg PO BID PRN (Reason: constipation) Qty: 30 0RF acetaminophen 500 mg capsule 500 mg PO Q4H PRN (Reason: fever or pain) Qty: 90 0RF Continued Restasis 0.05 % dropperette 1 drp EYE-BOTH PRN PRN (Reason: Dry Eye(S)) 0RF hydroxyzine HCl 25 mg tablet 50 mg PO BID PRN (Reason: anxiety) Qty: 90 1RF Rx Instructions: Take 2 tabs up to twice daily as needed for anxiety duloxetine [Cymbalta] 30 mg capsule,delayed release(DR/EC) 30 mg PO QDAY Qty: 90 3RF Rx Instructions: take 1 capsule with 1 60mg capsule, once daily for a total of 90mg daily. duloxetine [Cymbalta] 60 mg capsule,delayed release(DR/EC) 60 mg PO QDAY Qty: 90 3RF Rx Instructions: Take with 30mg pill for total daily dose 90mg amitriptyline 10 mg tablet 10 mg PO BEDTIME 0RF Label Comments: take 1 tablet by mouth nightly albuterol sulfate 90 mcg/actuation HFA aerosol inhaler 2 puff inhalation Q6H PRN (Reason: Shortness Of Breath) 0RF bupropion HCl 300 mg tablet extended release 24 hr 300 mg PO QAM Qty: 90 1RF cholecalciferol (vitamin D3) [Vitamin D3] 1,000 unit Capsule 1,000 unit PO DAILY Qty: 0 0RF levothyroxine 137 MCG tablet 0.137 mg PO QAM Qty: 0 0RF topiramate 100 mg tablet 100 mg PO BID Qty: 180 0RF Rx Instructions: Pt to have PCP fill next valacyclovir 500 mg tablet 500 mg PO DAILY 0RF ipratropium bromide 42 mcg (0.06 %) spray,non-aerosol 1 spray INTRANASAL DIRECTED 0RF cyclobenzaprine 10 mg tablet 10 mg PO PRN PRN (Reason: Spasms) 0RF Label Comments: PATIENT STATES TAKES BID Rx Instructions: take 1 tablet by mouth up to three times a day if needed for muscle spasm sumatriptan succinate 50 mg Tablet 50 mg PO Q2-4H PRN (Reason: Migraines) 0RF Rx Instructions: do not exceed 4 doses per 24 hrs Changed trazodone 100 mg tablet 100 mg PO BEDTIME PRN (Reason: insomnia) Qty: 30 0RF Rx Instructions: 100 mg PO; Follow up/Referrals: Erlinda Sauer MD [Physician] - (10-14 days for postoperative visit) Shaina Boyd DO [Primary Care Provider] - Diet/Activity/Treatments Diet: Diet as Tolerated Other treatments: Dressing/Wound care: -Keep dressing in place until postoperative follow-up office visit. -Okay to shower. Keep wound out of direct water stream. Can use PressNSeal plastic wrap to protect from shower stream. No soaking or submerging until all the scabs fall off (approximately 6 weeks). -Please call the office if dressing becomes wet, soiled, or saturated. Activities: -Limit bending, lifting, twisting x6 weeks. No deep bending (more than 90 degrees) or twisting at the waist. No lifting > 20 pounds. -Walk frequently. -Weight-bearing as tolerated. Use front wheeled walker, and progress to cane when safe. -Continue with home exercises as directed by your physical therapist. -Ice your incision as needed for pain/inflammation/swelling. Protect your skin with a folded pillowcase. Follow-up: -Follow-up with your surgeon or PA in the office in 10-14 days after surgery. -Follow-up with your surgeon 6 weeks postoperatively. Call the office if you have chest pain, shortness of breath, significant swelling that will not resolve with elevating, fever over 101?, significantly worsening pain. [facility]: [phone] Skin/Wound/Dressing Care Report to your healthcare provider any signs of infection, such as:: chills, fever, night sweats, unusual drainage and unusual redness [facility] Reason for rehabilitation: Post-operative therapy Rehab type: Physical therapy and Occupational therapy Visit Report/Discharge Packet Instructions: DI for Transforaminal Lumbar Interbody Fusion Stand Alone Forms: Surgery Discharge Discharge Data Primary Care Provider: Shaina Boyd Attending Provider: Erlinda Sauer VTE Deep Vein Thrombosis/Pulmonary Embolism Present on Admission: No
[2021-12-24] MEDS: valACYclovir 500 MG TABLET PO (08:37)
[2021-12-24] MEDS: TOPIRAMATE 100 MG TABLET PO ×2 (08:37→21:02)
[2021-12-24] MEDS: buPROPion XL 150 MG TAB 300 MG PO (08:38)
[2021-12-24] MEDS: CHOLECALCIFEROL (VITAMIN D3) 1,000 UNIT TABLET 1000 UNIT PO (08:38)
[2021-12-24] MEDS: DOCUSATE 100 MG CAPSULE PO ×2 (08:38→21:02)
[2021-12-24] MEDS: DULOXETINE 30 MG CAPSULE 90 MG PO (08:38)
--- NOTE | 2021-12-24 10:15 | PT.IPTN ---
Current Diagnoses Spondylolisthesis, lumbar region (12/24/21) Spinal stenosis, lumbar region with neurogenic claudication (12/24/21) Surgery Performed Operation Date: 12/22/21 08:45 Actual Procedures p L2-3 hemilaminectomy, L3-4, L4-5 TLIF w. posterior instrumentation - Erlinda Sauer MD Physical Therapy Treatment Note M2 PT-IP Current Condition Start: 12/23/21 12:06 Freq: NEEDED Status: Active Protocol: Document 12/23/21 10:30 AB (Rec: 12/23/21 12:24 AB [email or web address]) Physical Therapy Current Condition Current Condition Evaluation Date 12/23/21 Treatment Diagnosis s/p L3-4, L4-5 TLIF; difficulty in walking Onset Date 12/22/21 M3 PT-IP Subjective Start: 12/23/21 12:06 Freq: NEEDED Status: Active Protocol: Document 12/24/21 10:15 AB (Rec: 12/24/21 12:13 AB [email or web address]) Subjective Physical Therapy Visit Type Type Treatment Note Visit Start Time 10:15 Visit Stop Time 10:45 Total Visit Minutes 30 Number of NATURAL SCIENCES MANAGER Visits 0 Physical Therapy Visit Comments Patient Comments agreeable to do PT; spouse in room for caregiver training M4 PT-IP Mobility and Gait Start: 12/23/21 12:06 Freq: NEEDED Status: Active Protocol: Document 12/24/21 10:15 AB (Rec: 12/24/21 12:13 AB [id number]) PT-Bed Mobility Assessment Rolling Type of Rolling Log Rolling Level of Assist Moderate Assistance,1 Person Assistance Supine to Sit Supine to Sit Minimal Assistance,1 Person Assistance Sit to Supine Sit to Supine Minimal Assistance,1 Person Assistance PT-Transfer Assessment Sit to and From Stand Sit to and from Stand Contact Guard Assistance, Minimal Assistance,1 Person Assistance,Use of Upper Extremities Equipment Transfer Assistive Device Gait Belt,Front Wheeled Walker Orthotic/Prosthetic Devices or Brace: No Transfers Transfer Destination Bed,Chair Transfer Technique Stand Step Pivot Transfer Ability Level of Assist Contact Guard Assistance,1 Person Assistance,Use of Upper Extremities Comments Mobility Comments pt sitting on chair. spouse in room and confirmed that he was able to get a FWW for pt to use. caregiver training conducted. educated spouse on pt's back precautions and log roll bed mobility. educated spouse on use of safety belt and how to assist pt. spouse was able to put safety belt on pt. assisted pt with sit to stand min A and assisted pt with ambulation using FWW. pt c/o increase pain today and presents with shuffling gait. pt ambulated to EOB. completed log roll bed mobility sit<>supine min A with spouse assisting and cues form PT on how to assist. pt completed sit to stand from EOB CGA to min A and transferred to chair using FWW CGA to min A. positioned pt on chair. call light and table placed within reach. unable to do stairs today due to c/o increase back pain Gait Assessment Gait Gait Assistance Required: Contact Guard Assist,Minimum Assistance Distance (Feet) 20 Able to Maintain Weight Bearing Status Yes During Gait Assistive Devices Assistive Device Gait Belt,Front Wheeled Walker Orthotic/Prosthetic Devices or Brace: No Gait Deviations General Gait Pattern Decreased Stride Length, Decreased Feet Clearance,Step- to Gait Factors Limiting Gait Function Factors Limiting Gait Function Decreased Activity Tolerance, Decreased Strength,Difficulty Following Directions,Limited Range of Motion,Pain,Poor Balance,Poor Safety Awareness M5 PT-IP Objective Assessments Start: 12/23/21 12:06 Freq: NEEDED Status: Active Protocol: Document 12/23/21 10:30 AB (Rec: 12/23/21 12:24 AB [email or web address]) Orientation Orientation/Cognition Level of Alertness Alert Orientation Name,Place,Situation Language Function Ability Hard of Hearing Safety Awareness Decreased Safety Awareness Memory Description Short Term Impaired Gross Range of Motion Lower Extremity ROM Impairments increase LLE guarding during PROM Strength Lower Extremity Strength Assessment Left Impaired Hip 3-/5 Knee 3+/5 Sensation Assessment Sensation Gross Sensation WNL Muscle Tone Muscle Tone WNL Yes M6 PT-IP Treatment Start: 12/23/21 12:06 Freq: NEEDED Status: Active Protocol: Document 12/24/21 10:15 AB (Rec: 12/24/21 12:13 AB [id number]) Physical Therapy Treatment Education Education Provided Precautions,Safety M7 PT-IP Assessment and Plan Start: 12/23/21 12:06 Freq: NEEDED Status: Active Protocol: Document 12/24/21 10:15 AB (Rec: 12/24/21 12:13 AB [email or web address]) PT Summary Assessment and Plan Potential Rehabilitation Potential Fair Summary Impairments Pain,ROM,Strength,Balance, Coordination,Sensation,Tone, Cognition,Bed Mobility, Transfers,Gait,Activity Tolerance Progress Towards Goals Slow Progress due to Pain,Slow Progress due to Medical Issues,Slow Progress due to Activity Tolerance Assessment Summary caregiver training conducted and spouse was able to assist but requires cues from PT to complete. pt with c/o increase back pain this morning and requiring more assistance compared to yesterday afternoon's PT session. d/c plan depending on progress SNF vs home with 24/7 assist and HHPT. Goals Bed Mobility Goal Independent Transfer Goal Independent,Front Wheeled Walker Gait Goal Independent,Front Wheel Walker Gait Distance 250 Other Goals ambulation using 4WW SBA 250 ft 25 steps using L rail SBA Days to Meet Goals 5 Frequency of Treatment Frequency Of Treatment Twice a Day Treatment Plan Physical Therapy Treatment Plan Bed Mobility Training,Transfer Training,Gait Training, Therapeutic Exercise,Balance Retraining,Post Op Education, Discharge Planning,Hot or Cold Pack,Neuromuscular Re-ed, Coordination Retraining,Manual Therapy Precautions Lumbar Precautions Log Roll,No Twisting,Limit Bending,Lifting Restriction of 10 lbs,Gait Belt above Incisional Area Recommendations To Nursing Amount of Assist Needed 1 Person Assist Discharge Recommendations PT Discharge Recommendations Home with Assistance,Home Health,SNF Rehab Transportation Needs at Discharge Private Vehicle
--- NOTE | 2021-12-24 11:36 | OT.IP.TRT ---
Current Diagnoses Spondylolisthesis, lumbar region (12/24/21) Spinal stenosis, lumbar region with neurogenic claudication (12/24/21) Surgery Performed Operation Date: 12/22/21 08:45 Actual Procedures p L2-3 hemilaminectomy, L3-4, L4-5 TLIF w. posterior instrumentation - Erlinda Sauer MD Occupational Therapy Treatment Note M2 OT-IP Current Condition Start: 12/23/21 12:14 Freq: Status: Active Protocol: Document 12/23/21 12:15 [facility] (Rec: 12/23/21 12:38 [facility] [id number]) Occupational Therapy Current Condition Current Condition Evaluation Date 12/23/21 Treatment Diagnosis S/p L2-3 hemilaminectomy, L3-4 , L4-5 TLIF Diagnosis Onset Date 12/22/21 Post Operative Precautions Lumbar Precautions Log Roll,No Twisting,Limit Bending,Lifting Restriction of 10 lbs,Gait Belt above Incisional Area M3 OT- IP Subjective and Pain Start: 12/23/21 12:14 Freq: Status: Active Protocol: Document 12/24/21 11:45 [facility] (Rec: 12/24/21 11:57 [facility] [id number]) OT- Subjective Occupational Therapy Visit Type Type Treatment Note Visit Start Time 08:50 Visit Stop Time 11:36 Total Visit Minutes 63 Occupational Therapy Visit Comments Patient Comments Pt seen for split treatment [id number] and [id number]. Patient/Caregiver Goals Pt wanting to go to rehab. OT Pain Assessment Pain When Pain Assessed During Mobility Pain Present Pain Present Pain Reported Location Lower Back Intensity 8 Scale Used Numeric (0 - 10) M4 OT- IP ADL's Start: 12/23/21 12:14 Freq: Status: Active Protocol: Document 12/24/21 11:45 [facility] (Rec: 12/24/21 11:57 [facility] [id number]) OT DLE-Hmmq-Wymeedi Comments OT Self-Feeding Comments Not at meal time. OT ADL-Grooming Comments OT Grooming Comments NOt performed. OT ADL-Oral Care Comments Oral Care Comments NOt performed. OT ADL-Dressing General Eval Lower Body Dressing Ability Maximum Assistance Comments OT Dressing Comments Pt too tired and needing assist to help stefano brief over her feet and for socks management. OT ADL-Toileting Comments OT Toileting Comments AT this time pt unable to reach back appropriately to wipe and will need assist from her or suggested to pt to get a toilet paper aid. OT ADL-Bathing Bathing Type Bathing Type Shower General Evaluation Bathing Ability Maximal Assistance Areas Needing Assistance Wash/Dry Back,Wash/Dry Perineal Area,Wash/Dry Lower Extremities Devices Bathing Equipment Shower Chair with Arms Comments OT Bathing Comments At this time would be best to get a shower chair for pt to use and to assist as pt at times needing MODA to stand. Pt needing assist to hygiene and cues not to twist. M6 OT- IP Functional Cognition Start: 12/23/21 12:14 Freq: Status: Active Protocol: Document 12/24/21 11:45 [facility] (Rec: 12/24/21 11:57 [facility] [id number]) Cognitive Factors Limiting Selfcare Function Cognitive Ability Level of Alertness Alert,Confusional State Patient Orientation Name,Place,Situation Attention Span Ability Capable of Focused Attention, Capable of Sustained Attention Ability to Follow Commands Able to Follow One Step Commands with Increased Time, Able to Follow One Step Commands with Repetition Memory Description Short Term Impaired Safety Awareness Decreased Recall of Precautions,Decreased Ability to Apply Precautions, Underestimates Need for Assistance Problem Solving Ability Needs Assist to Identify Solutions Cognitive Comments Cognitive Assessment Comments Pt's present for the beginning of the session and states that his prior has memory issues and is well aware that she should not be driving anymore. Pt requiring MAX vc for hand placement, FWW safety , and cues to follow her back precautions for ADL and mobility needs. M7 OT- IP Mobility and Balance Start: 12/23/21 12:14 Freq: Status: Active Protocol: Document 12/24/21 11:45 [facility] (Rec: 12/24/21 11:57 [facility] [id number]) OT- Bed Mobility Assessment Scooting Scooting to Edge of Bed Moderate Assistance OT-Transfer Assessment Sit to and From Stand Sit to and from Stand Minimal Assistance,Moderate Assistance Transfers Transfer Ability Contact Guard Assistance, Minimal Assistance Technique Transfer Destination Bed,Shower Stall,Toilet Transfer Technique Stand Step Pivot Devices Transfer Assistive Devices Gait Belt,Front Wheeled Walker Comments Mobility Comments MODA to stand from lower surfaces and when pt tires. Pt once on her feet able to move with CGA assist , but as she tires needing MAE for balance and MAXA for safety cues. OT- Balance Assessment Sitting Balance and Reactions Static Sitting Balance Ability Good Dynamic Sitting Balance Ability Fair Standing Balance and Reactions Static Standing Balance Ability Fair M8 OT- IP Objective Assessments Start: 12/23/21 12:14 Freq: Status: Active Protocol: Document 12/23/21 12:15 [facility] (Rec: 12/23/21 12:38 [facility] [id number]) OT Gross Range of Motion Upper Extremity Range of Motion Assessment Bilaterally Impaired M9 OT- IP Assessment and Plan Start: 12/23/21 12:14 Freq: Status: Active Protocol: Document 12/24/21 11:45 [facility] (Rec: 12/24/21 11:57 [facility] [id number]) OT Summary Assessment and Plan Potential Rehabilitation Potential Good Analytic Complexity at Evaluation Low Summary OT Impairments Pain,Strength,Balance, Functional Cognition, Functional Mobility,Grooming, Dressing,Toileting,Bathing, Toilet Transfers,Shower Transfers,Activity Tolerance Progress Towards Goals Progressing Toward Goals,Slow Progress due to Cognition Assessment Summary Pt able to tolerate a shower but needing constant vc to follow her back precautions and needing assist for hygiene as unable to reach back to wipe without twisting. Suggested pt get a toilet paper aid. Pt would greatly benefit from short skilled rehab to continue to go over safety and back precautions with the pt. However at this time appears that insurance may not cover her stay, therefore pt will need 24/7 assist and home health. Goals Self-Feeding Goal Independent Grooming Goal Independent Dressing Goal Minimal Assistance Toileting Goal Independent Bathing Goal Standby Assistance Toilet Transfer Goal Independent Shower Transfer Goal Independent Patient/Caregiver Education Goal Caregiver Independent Assisting Patient Days to Meet Goals 10 Frequency of Treatment Frequency Of Treatment Once a Day Treatment Plan OT Treatment Plan ADL Training,Functional Cognition Training,Functional Mobility,Patient/Family Education,Discharge Planning Other Treatment Recommendations and Next ADL's Treatment Focus Discharge Recommendations OT Discharge Recommendations Home with Assistance,Home with 24/7 Assist Available,SNF Rehab,Home vs SNF Transportation Needs at Discharge Private Vehicle,Wheelchair/ Cabulance
--- NOTE | 2021-12-24 13:32 | PT.IPTN ---
Current Diagnoses Spondylolisthesis, lumbar region (12/24/21) Spinal stenosis, lumbar region with neurogenic claudication (12/24/21) Surgery Performed Operation Date: 12/22/21 08:45 Actual Procedures p L2-3 hemilaminectomy, L3-4, L4-5 TLIF w. posterior instrumentation - Erlinda Sauer MD Physical Therapy Treatment Note M2 PT-IP Current Condition Start: 12/23/21 12:06 Freq: NEEDED Status: Active Protocol: Document 12/23/21 10:30 [facility] (Rec: 12/23/21 12:24 [facility] [id number]) Physical Therapy Current Condition Current Condition Evaluation Date 12/23/21 Treatment Diagnosis s/p L3-4, L4-5 TLIF; difficulty in walking Onset Date 12/22/21 M3 PT-IP Subjective Start: 12/23/21 12:06 Freq: NEEDED Status: Active Protocol: Document 12/24/21 13:12 [facility] (Rec: 12/24/21 14:51 [facility] [id number]) Subjective Physical Therapy Visit Type Type Treatment Note Visit Start Time 13:12 Visit Stop Time 13:32 Total Visit Minutes 20 Number of CLIPPER MACHINE Visits 1 Physical Therapy Visit Comments Patient Comments Pt agreeable to working w/ therapy. Therapy Pain Assessment Pain When Pain Assessed During Mobility Pain Present Pain Present Pain Reported Location Lower Back Intensity 8 Scale Used Numeric (0 - 10) Pain Behaviors Guarding Pain Management Techniques Distraction,Modification of Treatment,Re-positioning, Timing of Activity with Medications M4 PT-IP Mobility and Gait Start: 12/23/21 12:06 Freq: NEEDED Status: Active Protocol: Document 12/24/21 13:12 [facility] (Rec: 12/24/21 14:51 [facility] [id number]) PT-Bed Mobility Assessment Rolling Type of Rolling Log Rolling Level of Assist Moderate Assistance,1 Person Assistance Supine to Sit Supine to Sit Maximum Assistance,1 Person Assistance,Head of Bed Elevated Sit to Supine Sit to Supine Moderate Assistance,1 Person Assistance,Head of Bed Elevated Scooting Scooting to Edge of Bed Moderate Assistance PT-Transfer Assessment Sit to and From Stand Sit to and from Stand Minimal Assistance,1 Person Assistance,Use of Upper Extremities Equipment Transfer Assistive Device Gait Belt,Front Wheeled Walker Orthotic/Prosthetic Devices or Brace: No Transfers Transfer Destination Bed Transfer Technique lateral steps Transfer Ability Level of Assist Moderate Assistance,1 Person Assistance,Use of Upper Extremities Comments Mobility Comments Pt in bed upon arrival. Unable to recall any precautions even with cues and unable to repeat precautions back to me immediately after listing them for her. Pt required Mod A and max cues for logroll, Max A for sidelying<>sit, and Mod A for scooting EOB. Once EOB pt agreeable to stand. Min A and cues for hand placement. Pt c/o 8/10 pain upon standing but ultimately was able to stand ~3 min w/ FWW and during that time perform ~[address] followed by 3 steps laterally towards HOB . Pt then requested to be done due to pain. Min A and cues for stand<>Sit, Mod A for sit< >sup and logroll into bed. Pt left in bed w/ all needs in reach and alarm on. Gait Assessment Gait Gait Assistance Required: Minimum Assistance,1 Person Assist Distance (Feet) 2 Able to Maintain Weight Bearing Status Yes During Gait Assistive Devices Assistive Device Gait Belt,Front Wheeled Walker Orthotic/Prosthetic Devices or Brace: No Comments Gait Comments Lateral steps towards HOB only . M5 PT-IP Objective Assessments Start: 12/23/21 12:06 Freq: NEEDED Status: Active Protocol: Document 12/23/21 10:30 [facility] (Rec: 12/23/21 12:24 [facility] [id number]) Orientation Orientation/Cognition Level of Alertness Alert Orientation Name,Place,Situation Language Function Ability Hard of Hearing Safety Awareness Decreased Safety Awareness Memory Description Short Term Impaired Gross Range of Motion Lower Extremity ROM Impairments increase LLE guarding during PROM Strength Lower Extremity Strength Assessment Left Impaired Hip 3-/5 Knee 3+/5 Sensation Assessment Sensation Gross Sensation WNL Muscle Tone Muscle Tone WNL Yes M6 PT-IP Treatment Start: 12/23/21 12:06 Freq: NEEDED Status: Active Protocol: Document 12/24/21 13:12 [facility] (Rec: 12/24/21 14:51 [facility] [id number]) Physical Therapy Treatment Education Education Provided Precautions,Safety M7 PT-IP Assessment and Plan Start: 12/23/21 12:06 Freq: NEEDED Status: Active Protocol: Document 12/24/21 13:12 [facility] (Rec: 12/24/21 14:51 [facility] [id number]) PT Summary Assessment and Plan Potential Rehabilitation Potential Fair Summary Impairments Pain,ROM,Strength,Balance, Coordination,Sensation,Tone, Cognition,Bed Mobility, Transfers,Gait,Activity Tolerance Progress Towards Goals Slow Progress due to Pain,Slow Progress due to Medical Issues,Slow Progress due to Activity Tolerance Assessment Summary Pt not showing improvements this PM and unable to recall any precautions even w/ extensive cues and reminders. Mod/Max A for bed mobility, Min A for transfers and 3 small lateral steps towards HOB. Pt required max cues w/ all tasks. She was unable to tolerate further activity due to 8/10 reported pain. At this time, due to poor saety awareness, inabilty to recall precautions, and increased assist required, pt will require SNF to improve functional mobility. Goals Bed Mobility Goal Independent Transfer Goal Independent,Front Wheeled Walker Gait Goal Independent,Front Wheel Walker Gait Distance 250 Other Goals ambulation using 4WW SBA 250 ft 25 steps using L rail SBA Days to Meet Goals 5 Frequency of Treatment Frequency Of Treatment Twice a Day Treatment Plan Physical Therapy Treatment Plan Bed Mobility Training,Transfer Training,Gait Training, Therapeutic Exercise,Balance Retraining,Post Op Education, Discharge Planning,Hot or Cold Pack,Neuromuscular Re-ed, Coordination Retraining,Manual Therapy Other Recommendations and Next Treatment Review precautions Focus Precautions Lumbar Precautions Log Roll,No Twisting,Limit Bending,Lifting Restriction of 10 lbs,Gait Belt above Incisional Area Recommendations To Nursing Amount of Assist Needed 1 Person Assist Discharge Recommendations PT Discharge Recommendations SNF Rehab Transportation Needs at Discharge Wheelchair/Cabulance
--- NOTE | 2021-12-24 16:29 | PC.NURSE ---
Pt resting @ intervals. Some confusion noted while talking w/pt. Pt may be impulsive @ times. Lungs clear, SpO2 97% RA Dsg to surgical back w/ small shadow drainage noted. SL intact/patent. Dave cath D/C this am, voiding QS Med w/po Dilaudid w/good relief. Call light w/in reach, bed alarm on for pt safety. Continue w/plan of care.
[2021-12-24] MEDS: SENNOSIDES 8.6 MG TABLET 17.2 MG PO (21:01)
[2021-12-24] MEDS: TRAZODONE 100 MG TABLET PO (21:02)
[2021-12-24] MEDS: AMITRIPTYLINE 10 MG TABLET PO (21:02)
[2021-12-25] MEDS: HYDROMORPHONE 2 MG TABLET PO ×3 (01:14→09:40)
[2021-12-25] MEDS: ACETAMINOPHEN 325 MG TABLET 650 MG PO ×3 (01:14→11:35)
[2021-12-25 05:46] VITALS: BP 112/67; PULSE 108; RESP 16; TEMP 36.4; O2SAT 96
[2021-12-25] MEDS: LEVOTHYROXINE 137 MCG TABLET PO (05:55)
[2021-12-25 09:25] VITALS: BP 114/61; PULSE 109; RESP 20; TEMP 36.5; O2SAT 95
[2021-12-25] MEDS: CHOLECALCIFEROL (VITAMIN D3) 1,000 UNIT TABLET 1000 UNIT PO (09:33)
[2021-12-25] MEDS: buPROPion XL 150 MG TAB 300 MG PO (09:33)
[2021-12-25] MEDS: DOCUSATE 100 MG CAPSULE PO (09:33)
[2021-12-25] MEDS: valACYclovir 500 MG TABLET PO (09:33)
[2021-12-25] MEDS: DULOXETINE 30 MG CAPSULE 90 MG PO (09:33)
[2021-12-25] MEDS: TOPIRAMATE 100 MG TABLET PO (09:42)
--- NOTE | 2021-12-25 11:47 | PT.IPTN ---
Current Diagnoses Spondylolisthesis, lumbar region (12/24/21) Spinal stenosis, lumbar region with neurogenic claudication (12/24/21) Surgery Performed Operation Date: 12/22/21 08:45 Actual Procedures p L2-3 hemilaminectomy, L3-4, L4-5 TLIF w. posterior instrumentation - Erlinda Saure MD Physical Therapy Treatment Note M2 PT-IP Current Condition Start: 12/23/21 12:06 Freq: NEEDED Status: Discharge Protocol: Document 12/25/21 11:05 [facility] (Rec: 12/25/21 16:41 SP [id number]) Physical Therapy Current Condition Current Condition Evaluation Date 12/23/21 Treatment Diagnosis s/p L3-4, L4-5 TLIF; difficulty in walking Onset Date 12/22/21 M3 PT-IP Subjective Start: 12/23/21 12:06 Freq: NEEDED Status: Discharge Protocol: Document 12/25/21 11:05 [facility] (Rec: 12/25/21 16:41 SP [id number]) Subjective Physical Therapy Visit Type Type Treatment Note Visit Start Time 11:05 Visit Stop Time 11:47 Total Visit Minutes 45 Notes Vitals during tx: supine: BP96/62 HR 93 seated: 87/42 HR 103 standin/67 HR 106 Pt states 87 is low but the other readings is her normal. Nonsymptomatic. Number of MORNING BABYSITTER Visits 2 Physical Therapy Visit Comments Patient Comments Pt agreeable to working w/ therapy. Patient Goals return home with to assist her but stated can only help for 2 days due to work. Therapy Pain Assessment Pain When Pain Assessed At Rest Pain Present Pain Present Pain Reported Location Lower Back Intensity 6 Scale Used Numeric (0 - 10) Pain Behaviors Guarding Pain Management Techniques Distraction,Modification of Treatment,Re-positioning, Timing of Activity with Medications M4 PT-IP Mobility and Gait Start: 12/23/21 12:06 Freq: NEEDED Status: Discharge Protocol: Document 12/25/21 11:05 [facility] (Rec: 12/25/21 16:41 SP [id number]) PT-Bed Mobility Assessment Rolling Type of Rolling Log Rolling Level of Assist Standby Assistance Supine to Sit Supine to Sit Contact Guard Assistance Scooting Scooting to Edge of Bed Standby Assistance PT-Transfer Assessment Sit to and From Stand Sit to and from Stand Contact Guard Assistance, Minimal Assistance,1 Person Assistance,Use of Upper Extremities Equipment Transfer Assistive Device Gait Belt,Front Wheeled Walker Orthotic/Prosthetic Devices or Brace: No Transfers Transfer Destination Chair,Wheelchair Transfer Technique pt ambulated using FWW Transfer Ability Level of Assist Contact Guard Assistance, Minimal Assistance,1 Person Assistance,Use of Upper Extremities Comments Mobility Comments Pt recalled BLT but only describe 2/3 precautions, needed cues for T stood for no twisting, indentifies T for turn. Pt completed LR L then L SL>sit using EOB push from, she verbalized self redirection UE use bed not have bed rail at home, CGA. Sit>stand CG- Min A then progress gait into hallway approx 30 ft before suggested rest in w/c following for energy conservation for stair mgt, cued reach back and slow descent hip hinge not bend at back to sit, CGA-5%A. Pt wheeled to stairs. Completed 6 of 14 stairs using L HR and SPC on R with mod cues for patterning BLE and SPC. Pt unable to progress needed to sit due to tiring and can do anymore, Min A. Pt rested for 2 min in w/c then able to walk back to room w/c follow but not needed sit, CGA w/FWW. Pt stated was able to get FWW for use at home. Pt returned to room chair, cued increase stride and foot clearance during gait. Pt had call light and all needs in reach before left, tray in front of her with BLE supported onfloor. MORNING BABYSITTER discussed with pt that she is a fall risk and needing support, recommend take off work more than 2 days to assist her and would like set up CGT with for safety mobility. Will continue to assess progress in pm. Gait Assessment Gait Gait Assistance Required: Contact Guard Assist,Minimum Assistance,1 Person Assist Distance (Feet) 150 Able to Maintain Weight Bearing Status Yes During Gait Assistive Devices Assistive Device Gait Belt,Front Wheeled Walker Orthotic/Prosthetic Devices or Brace: No Gait Deviations General Gait Pattern Antalgic,Decreased Stride Length,Decreased Feet Clearance,Narrow Based Gait, Step-to Gait Factors Limiting Gait Function Factors Limiting Gait Function Decreased Activity Tolerance, Decreased Strength,Difficulty Following Directions,Limited Range of Motion,Pain,Poor Balance,Poor Safety Awareness Comments Gait Comments see mobility details Stair Climbing Assessment Evaluation Level of Assist On Stairs Minimal Assistance,1 Person Assistance Devices Stair Climbing Assistive Devices Straight Cane,Left Railing Technique/Endurance Stair Climbing Direction Ascend and Descend Stair Climbing Technique Step to Step Number of Steps Climbed 3 Stair Climbing Set # Repetitions (reps) 2 Comments Stair Climbing Comments Pt unable to complete 2 sets of 7 stairs has to enter home and up to main level where will stay. Mod cues for sequencing BLE and SPC. WIll assess BUE on 1 HR in afternoon for safety mgt. PT-Balance Assessment Sitting Balance and Reactions Static Sitting Balance Ability Good Dynamic Sitting Balance Ability Fair Standing Balance and Reactions Static Standing Balance Ability Fair Dynamic Standing Balance Ability Fair Device Used FWW M5 PT-IP Objective Assessments Start: 12/23/21 12:06 Freq: NEEDED Status: Discharge Protocol: Document 12/23/21 10:30 [facility] (Rec: 12/23/21 12:24 [facility] [id number]) Orientation Orientation/Cognition Level of Alertness Alert Orientation Name,Place,Situation Language Function Ability Hard of Hearing Safety Awareness Decreased Safety Awareness Memory Description Short Term Impaired Gross Range of Motion Lower Extremity ROM Impairments increase LLE guarding during PROM Strength Lower Extremity Strength Assessment Left Impaired Hip 3-/5 Knee 3+/5 Sensation Assessment Sensation Gross Sensation WNL Muscle Tone Muscle Tone WNL Yes M6 PT-IP Treatment Start: 12/23/21 12:06 Freq: NEEDED Status: Discharge Protocol: Document 12/25/21 11:05 [facility] (Rec: 12/25/21 16:41 SP [id number]) Physical Therapy Treatment Education Education Provided Precautions,Safety M7 PT-IP Assessment and Plan Start: 12/23/21 12:06 Freq: NEEDED Status: Discharge Protocol: Document 12/25/21 11:05 [facility] (Rec: 12/25/21 16:41 SP [id number]) PT Summary Assessment and Plan Potential Rehabilitation Potential Fair Status of Condition at Evaluation Evolving Summary Impairments Pain,ROM,Strength,Balance, Coordination,Sensation,Tone, Cognition,Bed Mobility, Transfers,Gait,Activity Tolerance Progress Towards Goals Progressing Toward Goals,Slow Progress due to Pain,Slow Progress due to Activity Tolerance Assessment Summary Pt at times has trouble word finding. She required CG- Min A throught tx, cues for safety hand placement and trunk support on stairs, decreased strength and activity tolerance to complete all 14 stairs has to do enter home main level. At this time recommending SNF vs home 10/04. will continue to assess progress for pm appt. Goals Bed Mobility Goal Independent Transfer Goal Independent,Front Wheeled Walker Gait Goal Independent,Front Wheel Walker Gait Distance 250 Other Goals ambulation using 4WW SBA 250 ft 25 steps using L rail SBA Days to Meet Goals 5 Frequency of Treatment Frequency Of Treatment Twice a Day Treatment Plan Physical Therapy Treatment Plan Bed Mobility Training,Transfer Training,Gait Training, Therapeutic Exercise,Balance Retraining,Post Op Education, Discharge Planning,Hot or Cold Pack,Neuromuscular Re-ed, Coordination Retraining,Manual Therapy Other Recommendations and Next Treatment Review precautions, CGT with Focus , gait w/ FWW, stair mgt 7 stairs x2. Precautions Lumbar Precautions Log Roll,No Twisting,Limit Bending,Lifting Restriction of 10 lbs,Gait Belt above Incisional Area Recommendations To Nursing Amount of Assist Needed 1 Person Assist Discharge Recommendations PT Discharge Recommendations Home with 10/04 Assist Available,Home Health,SNF Rehab,Home vs SNF Equipment Needed for Home Before acquired FWW Discharge Transportation Needs at Discharge Private Vehicle,Wheelchair/ Cabulance
--- NOTE | 2021-12-25 12:23 | CM.DPC ---
DCP Cont: Spoke to Christa this am in admissions at [facility]. No answer on the authorization. Cherry Rickey, PAC, came by the care management office and indicated that she had done the peer to peer with patient's insurance, and they stated,confusion is not enough to auth her, and she was doing too well with P.T. This DC environmental restoration planner had this conversation with patient yesterday, and let her know that plan is most likely home with home health. Cherry has written DC orders for home if she can clear P.T. today, and gave verbal for home health. Patient is working on stair training with P.T. Called Crystal at [facility], Alpha is listed on calendar for this week, but tomorrow is [facility], and Alpha does not go to [facility]. Patient indicated yesterday, she has no preferences upon home health, has not had before. Updated Crystal about patient. Asked her if she would be a candidate for HACH program. Also, let her know that patient has [employer] Medicare. Crystal indicated, she's not sure, but could qualify for HACH, but nursing has to go out first with this program, and they are tight with nursing. Also, she has to run this through patient's insurance, for she may have a co-pay. Let her know home health without HACH would also be appropriate. Called [facility], and left a message upon their availabilities, but did not send referral as of yet. Crystal indicated that she can also send referral to [facility], if they are not able to accommodate patient in a timely manner. Went ahead and faxed [facility] face sheet, face to face, orders, DC Summary (from yesterday), H&P, P.T, and O.T. notes as well. As mentioned, Crystal will review to see when they can see her, and run her insurance through, but most likely not until Monday. P: Patient has discharge orders for home pending upon how she does with P.T. Susanna Bojorquez RN/[place]
--- NOTE | 2021-12-25 14:00 | PT.IPTN ---
Current Diagnoses Spondylolisthesis, lumbar region (12/24/21) Spinal stenosis, lumbar region with neurogenic claudication (12/24/21) Surgery Performed Operation Date: 12/22/21 08:45 Actual Procedures p L2-3 hemilaminectomy, L3-4, L4-5 TLIF w. posterior instrumentation - Erlinda Sauer MD Physical Therapy Treatment Note M2 PT-IP Current Condition Start: 12/23/21 12:06 Freq: NEEDED Status: Discharge Protocol: Document 12/25/21 13:24 SP (Rec: 12/25/21 17:02 SP [id number]) Physical Therapy Current Condition Current Condition Evaluation Date 12/23/21 Treatment Diagnosis s/p L3-4, L4-5 TLIF; difficulty in walking Onset Date 12/22/21 M3 PT-IP Subjective Start: 12/23/21 12:06 Freq: NEEDED Status: Discharge Protocol: Document 12/25/21 13:24 SP (Rec: 12/25/21 17:02 SP [id number]) Subjective Physical Therapy Visit Type Type Treatment Note Visit Start Time 13:24 Visit Stop Time 14:00 Total Visit Minutes 36 Notes in room when arrived, completed caregiver training including donning GB and assist required during mobility. stated will be home for 2 weeks to assist pt. Number of FLIGHT SIMULATOR TEACHER Visits 3 Physical Therapy Visit Comments Patient Comments Pt agreeable to working w/ therapy. Patient Goals return home with to assist her Therapy Pain Assessment Pain When Pain Assessed During Mobility Pain Present Pain Present Pain Reported Location Lower Back Intensity 6 Scale Used Numeric (0 - 10) Pain Behaviors Facial Grimacing,Guarding Pain Management Techniques Distraction,Modification of Treatment,Re-positioning, Timing of Activity with Medications M4 PT-IP Mobility and Gait Start: 12/23/21 12:06 Freq: NEEDED Status: Discharge Protocol: Document 12/25/21 13:24 SP (Rec: 12/25/21 17:02 SP [id number]) PT-Bed Mobility Assessment Rolling Type of Rolling Log Rolling Level of Assist Standby Assistance Supine to Sit Supine to Sit Standby Assistance,Contact Guard Assistance Sit to Supine Sit to Supine Minimal Assistance,1 Person Assistance Scooting Scooting to Edge of Bed Standby Assistance PT-Transfer Assessment Sit to and From Stand Sit to and from Stand Contact Guard Assistance,1 Person Assistance,Use of Upper Extremities Equipment Transfer Assistive Device Gait Belt,Front Wheeled Walker Orthotic/Prosthetic Devices or Brace: No Transfers Transfer Destination Bed,Wheelchair Transfer Technique pt ambulated using FWW Transfer Ability Level of Assist Contact Guard Assistance,1 Person Assistance,Use of Upper Extremities Comments Mobility Comments Pt recalled 2/3 precautions, unable to express twisting, reminded her. SBA during LR and L SL>sit, scoot to EOB, donned GB. stated that their bed in pretty high, approx 28 inches, sit>stand CGA, cues for pushing from bed not FWW. Pt walked to bathroom w/FWW CGA and returned to EOB able to sit back on high EOB, scoot back CGA via and Min A for BLE support and cues from for maintaining LR technique. Preferred sidelying and ableto place pillow between BLE self. Pt returned to sitting CGA. Pt further gait to hallway using FWW CGA via to w/c, provided ride down to stairs. Pt completed 7 stairs x2 BUE on L HR required seated rest between sets due to tiring and LBP, assimulate what can do at home sit in chair on landing. Pt requested ride back to room due to tiring and still needs to go home later and do stairs, wants to return to bed and rest. FLIGHT SIMULATOR TEACHER wheeled pt back to room. Sit>stand from w/c gait to L EOB CGA, occasional cues by increase stride and foot clearance body closer to FWW. Stand>sit CGA and cues reach back to sit>L SL>supine Min A for BLE support into bed by . CUed pt for core fac to support back spinal stability during mobility, good feedback response. Pt Min A resposition upper body in bed pulling from therapist hand. Pt had call light and all needs in reach before left , in room, bed alarmed , OT entered room when leaving . Pt is ok to return home with to assist her when medically cleared. Recommending 10/04 available assit by and HHPT to progress strength, balance and functional mobilty toward PLOF for safety. Gait Assessment Gait Gait Assistance Required: Contact Guard Assist,Minimum Assistance,1 Person Assist Distance (Feet) 150 Able to Maintain Weight Bearing Status Yes During Gait Assistive Devices Assistive Device Gait Belt,Front Wheeled Walker Orthotic/Prosthetic Devices or Brace: No Gait Deviations General Gait Pattern Antalgic,Decreased Stride Length,Decreased Feet Clearance,Narrow Based Gait, Step-to Gait Factors Limiting Gait Function Factors Limiting Gait Function Decreased Activity Tolerance, Decreased Strength,Difficulty Following Directions,Limited Range of Motion,Pain,Poor Balance,Poor Safety Awareness Comments Gait Comments see mobility details Stair Climbing Assessment Evaluation Level of Assist On Stairs Contact Guard Assistance, Minimal Assistance,1 Person Assistance Devices Stair Climbing Assistive Devices Left Railing Technique/Endurance Stair Climbing Direction Ascend and Descend Stair Climbing Technique Step to Step Number of Steps Climbed 7 Stair Climbing Set # Repetitions (reps) 2 Comments Stair Climbing Comments step to patterning BUE on L HR , cued for small step turns to maintain no twisting. PT-Balance Assessment Sitting Balance and Reactions Static Sitting Balance Ability Good Dynamic Sitting Balance Ability Good Standing Balance and Reactions Static Standing Balance Ability Fair Dynamic Standing Balance Ability Fair Device Used FWW M5 PT-IP Objective Assessments Start: 12/23/21 12:06 Freq: NEEDED Status: Discharge Protocol: Document 12/23/21 10:30 AB (Rec: 12/23/21 12:24 AB [id number]) Orientation Orientation/Cognition Level of Alertness Alert Orientation Name,Place,Situation Language Function Ability Hard of Hearing Safety Awareness Decreased Safety Awareness Memory Description Short Term Impaired Gross Range of Motion Lower Extremity ROM Impairments increase LLE guarding during PROM Strength Lower Extremity Strength Assessment Left Impaired Hip 3-/5 Knee 3+/5 Sensation Assessment Sensation Gross Sensation WNL Muscle Tone Muscle Tone WNL Yes M6 PT-IP Treatment Start: 12/23/21 12:06 Freq: NEEDED Status: Discharge Protocol: Document 12/25/21 13:24 SP (Rec: 12/25/21 17:02 SP [id number]) Physical Therapy Treatment Education Education Provided Precautions,Safety M7 PT-IP Assessment and Plan Start: 12/23/21 12:06 Freq: NEEDED Status: Discharge Protocol: Document 12/25/21 13:24 SP (Rec: 12/25/21 17:02 SP [id number]) PT Summary Assessment and Plan Potential Rehabilitation Potential Fair Status of Condition at Evaluation Evolving Summary Impairments Pain,ROM,Strength,Balance, Coordination,Sensation,Tone, Cognition,Bed Mobility, Transfers,Gait,Activity Tolerance Progress Towards Goals Progressing Toward Goals,Slow Progress due to Pain,Slow Progress due to Activity Tolerance Assessment Summary Pt recalls 2/3 precautions, husbands gives her clues for T no twisting not turning. Pt required CG-Min A throught out tx using FWW and bed mob. Pt is ok to return home with 10/04 via assist her when medically cleared. Recommending HHPT to progress strength and functional mobiliyt and safety education techniques to maintain spinal precuations. Goals Bed Mobility Goal Independent Transfer Goal Independent,Front Wheeled Walker Gait Goal Independent,Front Wheel Walker Gait Distance 250 Other Goals ambulation using 4WW SBA 250 ft 25 steps using L rail SBA Days to Meet Goals 5 Frequency of Treatment Frequency Of Treatment Twice a Day Treatment Plan Physical Therapy Treatment Plan Bed Mobility Training,Transfer Training,Gait Training, Therapeutic Exercise,Balance Retraining,Post Op Education, Discharge Planning,Hot or Cold Pack,Neuromuscular Re-ed, Coordination Retraining,Manual Therapy Other Recommendations and Next Treatment Review precautions, 5xSTS, Focus stand ex, balance, gait further distance. Precautions Lumbar Precautions Log Roll,No Twisting,Limit Bending,Lifting Restriction of 10 lbs,Gait Belt above Incisional Area Recommendations To Nursing Amount of Assist Needed 1 Person Assist Discharge Recommendations PT Discharge Recommendations Home with 10/04 Assist Available,Home Health Equipment Needed for Home Before acquired FWW Discharge Transportation Needs at Discharge Private Vehicle
--- NOTE | 2021-12-25 14:03 | PC.NURSE ---
Addendum entered by Milly Raymundo R.N. 12/25/21 15:55: Pt escorted via W/C to waiting vehicle in stablepost op status. Original Note: Pt received D/C orders after she was cleared by PT/OT Pt now cleared. SL discontinued intact. Dsg to back changed prior to D/C
--- NOTE | 2021-12-25 14:20 | OT.IP.TRT ---
Current Diagnoses Spondylolisthesis, lumbar region (12/24/21) Spinal stenosis, lumbar region with neurogenic claudication (12/24/21) Surgery Performed Operation Date: 12/22/21 08:45 Actual Procedures p L2-3 hemilaminectomy, L3-4, L4-5 TLIF w. posterior instrumentation - Erlinda Sauer MD Occupational Therapy Treatment Note M2 OT-IP Current Condition Start: 12/23/21 12:14 Freq: Status: Active Protocol: Document 12/23/21 12:15 [facility] (Rec: 12/23/21 12:38 [facility] [id number]) Occupational Therapy Current Condition Current Condition Evaluation Date 12/23/21 Treatment Diagnosis S/p L2-3 hemilaminectomy, L3-4 , L4-5 TLIF Diagnosis Onset Date 12/22/21 Post Operative Precautions Lumbar Precautions Log Roll,No Twisting,Limit Bending,Lifting Restriction of 10 lbs,Gait Belt above Incisional Area M3 OT- IP Subjective and Pain Start: 12/23/21 12:14 Freq: Status: Active Protocol: Document 12/25/21 14:20 [facility] (Rec: 12/25/21 14:26 [facility] [id number]) OT- Subjective Occupational Therapy Visit Type Type Treatment Note Visit Start Time 14:08 Visit Stop Time 14:20 Total Visit Minutes 121 Occupational Therapy Visit Comments Patient Comments Pt too tired from PT caregiver training to do OT at this time. Pt's present for caregiver training. Nursing states to assist pt with bandage change and dressing later. Patient/Caregiver Goals To go home OT Pain Assessment Pain When Pain Assessed At Rest Pain Present Pain Present Pain Reported M4 OT- IP ADL's Start: 12/23/21 12:14 Freq: Status: Active Protocol: Document 12/25/21 14:20 [facility] (Rec: 12/25/21 14:26 [facility] [id number]) OT ADL-Grooming Comments OT Grooming Comments Went over techniques best to spit into a cup to best follow her back precautions. OT ADL-Dressing Comments OT Dressing Comments Pt's states will just assist his . OT ADL-Toileting Comments OT Toileting Comments Pt unable to reach appropriately and her ayesha have to assist. Able to educated pt on options of getting a toilet paper aid or bidet. OT ADL-Bathing Comments OT Bathing Comments Suggested pt get a shower chair. Pt's states has a built in seat but suggested the shower chair would be safer. M5 OT- IP IADL's Start: 12/23/21 12:14 Freq: Status: Active Protocol: Document 12/23/21 12:15 [facility] (Rec: 12/23/21 12:38 [facility] [id number]) OT-Instrumental Activities of Daily Living Home Safety Awareness Awareness of Need for Assistance at Home Decreased Awareness Ability to Problem Solve Emergency Unable to Problem Solve Situations Money Management Money Management Caregiver Provides Assistance Driving Driving Concerns Identified Regarding Safety Driving Comments Pt states has been considering stopping to drive as she states, I tend to fall asleep at traffic lights. Suggested and agreed that it would best for pt not to drive . M6 OT- IP Functional Cognition Start: 12/23/21 12:14 Freq: Status: Active Protocol: Document 12/25/21 14:20 [facility] (Rec: 12/25/21 14:26 [facility] [id number]) Cognitive Factors Limiting Selfcare Function Cognitive Comments Cognitive Assessment Comments Pt doing better with her precautions but still forgetful and needing to have 24/7 assist for safety and assist at this time. M8 OT- IP Objective Assessments Start: 12/23/21 12:14 Freq: Status: Active Protocol: Document 12/23/21 12:15 [facility] (Rec: 12/23/21 12:38 [facility] [id number]) OT Gross Range of Motion Upper Extremity Range of Motion Assessment Bilaterally Impaired M9 OT- IP Assessment and Plan Start: 12/23/21 12:14 Freq: Status: Active Protocol: Document 12/25/21 14:20 [facility] (Rec: 12/25/21 14:26 [facility] [id number]) OT Summary Assessment and Plan Potential Rehabilitation Potential Good Analytic Complexity at Evaluation Low Summary Progress Towards Goals Progressing Toward Goals Assessment Summary Pt too tired from PT caregiver training to get up at this time to get dressed. Able to talk at length with pt's for OT needs and her feels is capable to assist his at home. Pt lookng to go home today with her for 24/7 assist and receive home health. Goals Self-Feeding Goal Independent Grooming Goal Independent Dressing Goal Minimal Assistance Toileting Goal Independent Bathing Goal Standby Assistance Toilet Transfer Goal Independent Shower Transfer Goal Independent Patient/Caregiver Education Goal Caregiver Independent Assisting Patient Days to Meet Goals 9 Frequency of Treatment Frequency Of Treatment Once a Day Treatment Plan OT Treatment Plan ADL Training,Functional Cognition Training,Functional Mobility,Patient/Family Education,Discharge Planning Discharge Recommendations OT Discharge Recommendations Home with 10/04 Assist Available,Home Health,SNF Rehab Transportation Needs at Discharge Private Vehicle
== END 2021-12-25 15:56 | disposition home health service (06) ==
LOC: OR 07:45 → AC 07:45
PROVIDERS: Physician Assistant; Admitting Provider Orthopaedic Surgery Orthopaedic Surgery of the Spine; PCP Family Medicine; Referring Provider Orthopaedic Surgery Orthopaedic Surgery of the Spine; Visit Provider Orthopaedic Surgery Orthopaedic Surgery of the Spine
PROC: (CPT 63030; principal; 2021-12-22 08:45)
DX: M48.062 Spinal stenosis, lumbar region with neurogenic claudication (principal); M43.16 Spondylolisthesis, lumbar region; M54.16 Radiculopathy, lumbar region; F41.9 Anxiety disorder, unspecified; F32.A Depression, unspecified; E03.9 Hypothyroidism, unspecified; G47.33 Obstructive sleep apnea (adult) (pediatric)
CPT/HCPCS: 63030; 20939; 22842; 22853 ×2; 63052; 63053; 22633; 22634; 36415; 72100; 76000; 85014; 85018; 97116; 97162; 97165; 97530; 97535; G0378; C1831; C9290; J0171; J0330; J0690; J1100; J1170; J2250; J2405; J2704; J3010; J7613

== ENCOUNTER → 2022-07-20 09:54 | Outpatient (CLI) | payer MEDICARE, SELFPAY ==
[2022-01-03 12:56] VITALS: BMI 27.4
--- NOTE | 2022-07-20 10:08 | DI.CT.S_ITS ---
PROCEDURE: CT LUMBAR SPINE WO CON INDICATIONS: Spondylolisthesis, lumbar region TECHNIQUE: Noncontrast 3 mm thick sections acquired from the T12 level to the sacrum. Sagittal and coronal reformats were constructed. For radiation dose reduction, the following was used: automated exposure control. COMPARISON: Located Within [facility], CT, CT LUMBAR SPINE WO CON, 07/07/2021, 11:50. Located Within [facility], MR, MR LUMBAR SPINE WO CON, 06/02/2021, 14:23. [facility] [place], CR, XR LUMBAR SPINE 2 OR 3 VIEWS, 04/12/2022, 15:45. FINDINGS: Image quality: Excellent. Bones: Postsurgical changes are seen from posterior fixation at L3 through L5 with bilateral pedicle screws and interbody rods as well as interbody spacers. Hardware appears to be satisfactorily positioned. Mild 2 mm grade 1 retrolisthesis of L2 on L3 does not appear significantly changed. Trace 1 mm grade 1 anterolisthesis of L4 on L5 appears unchanged. No acute vertebral body compression fractures. No suspicious lytic or blastic bony lesions. No pars defects. T12-L1: Mild bilateral facet hypertrophy. No bony spinal canal stenosis or neural foraminal narrowing. L1-L2: Mild circumferential disc bulging and mild bilateral facet hypertrophy, which result in mild narrowing of the spinal canal without significant neural foraminal narrowing. L2-L3: Mild grade 1 retrolisthesis of L2 on L3 as well as mild circumferential disc bulging and moderate bilateral facet hypertrophy and bulging of the ligamentum flavum. Findings result in moderate narrowing of the spinal canal and moderate to severe bilateral neural foraminal narrowing. L3-L4: Status post left laminectomy with decompression of the spinal canal. Severe right facet hypertrophy. Moderate to severe right neural foraminal narrowing without significant left neural foraminal narrowing. L4-L5: Status post left hemilaminectomy with decompression of the spinal canal. Severe right facet hypertrophy. There is moderate to severe right neural foraminal narrowing without significant left neural foraminal narrowing. L5-S1: Mild diffuse disc bulging and moderate to severe bilateral facet hypertrophy. Findings result in moderate bilateral neural foraminal narrowing without significant spinal canal stenosis. Soft tissues: No retroperitoneal masses or hematomas. Visualized aorta is normal in caliber. Status post cholecystectomy. IMPRESSION: 1. Postsurgical changes from left tiny laminectomies and posterior fixation at the L3-4 and L4-5 disc space levels. Hardware demonstrates satisfactory positioning. 2. Residual multilevel degenerative disc disease and facet hypertrophy as described in detail in the body of the report. 3. At least moderate spinal canal narrowing at the L2-3 level does not appear significantly changed. 4. Multilevel neural foraminal narrowing. Approved by: Óscar Cage M.D. on 07/20/2022 at 11:53
== END ==
PROVIDERS: PCP Family Medicine; Referring Provider Orthopaedic Surgery Orthopaedic Surgery of the Spine; Visit Provider Orthopaedic Surgery Orthopaedic Surgery of the Spine
DX: M43.16 Spondylolisthesis, lumbar region (principal); M48.061 Spinal stenosis, lumbar region without neurogenic claudication; M51.36 Other intervertebral disc degeneration, lumbar region; M51.37 Other intervertebral disc degeneration, lumbosacral region; Z98.1 Arthrodesis status
CPT/HCPCS: 72131

== ENCOUNTER → 2023-07-03 12:40 | Outpatient (CLI) | payer MEDICARE, SELFPAY ==
[2023-04-13 12:48] VITALS: BMI 27.4
--- NOTE | 2023-07-03 12:43 | DI.RAD.S_ITS ---
PROCEDURE: XR CERVICAL SPINE 4V OR 5V INDICATIONS: NECK PAIN TECHNIQUE: 5 views of the cervical spine acquired. COMPARISON: [facility] [place], [place]G, XR CERVICAL SPINE 2 OR 3 VIEWS, 07/09/2020, 16:42. FINDINGS: Bones: No fractures or dislocations to the C7 level. Postsurgical changes from C4 through C6 ACDF. The hardware appears intact without surrounding fracture or lucency. Degenerative changes of the cervical spine with disc height loss, degenerative endplate changes and marginal spurring, most pronounced at C6-C7. Facet arthropathy and uncovertebral arthropathy are present. Straightening of normal cervical lordosis. Oblique images demonstrate osseous neural foraminal stenosis most pronounced within the mid and lower cervical spine bilaterally.. Soft tissues: No prevertebral soft tissue swelling. IMPRESSION: Multilevel degenerative changes of the cervical spine status post C4 through C6 ACDF is similar in appearance to prior. Osseous neural foraminal stenosis is present on oblique imaging. Dictated by: Igor Garcia M.D. on 07/03/2023 at 13:22 Approved by: Igor Garcia M.D. on 07/03/2023 at 13:24
== END ==
PROVIDERS: PCP Internal Medicine; Referring Provider Physical Medicine & Rehabilitation; Visit Provider Physical Medicine & Rehabilitation
DX: M54.2 Cervicalgia (principal); M48.02 Spinal stenosis, cervical region; F90.2 Attention-deficit hyperactivity disorder, combined type; F43.12 Post-traumatic stress disorder, chronic; F41.9 Anxiety disorder, unspecified; Z98.1 Arthrodesis status
CPT/HCPCS: 72050; 99215

== ENCOUNTER 2024-02-06 12:56 | Outpatient (CLI) | payer MEDICARE, SELFPAY ==
[2023-04-13 12:48] VITALS: BMI 27.4
[2024-02-06] VITALS (9 sets, daily range): BP systolic 94–129; BP diastolic 55–78; PULSE 79–95; RESP 10–20; TEMP 36.2; O2SAT 92–100
--- NOTE | 2024-02-06 14:00 | DI.RAD.S_ITS ---
PROCEDURE: PAIN L/S FACET INJ/BLK 1ST WANDER INDICATIONS: BILATERAL L2 L3 MBB-LA COMPARISON: CT, CT LUMBAR SPINE WO CON, 07/20/2022, 9:59. FINDINGS: Fluoroscopic spot filming was performed to verify placement of spinal needles at the L2 through L4 level(s), as labeled on the films. Appropriate location(s) of the needle tip(s) was confirmed by injection of iodinated contrast. Partially visualized mid lumbar fusion hardware. IMPRESSION: Contrast and needle placement at L2 through L4. Dictated by: Veronica Elder M.D. on 02/06/2024 at 21:32 Approved by: Veronica Elder M.D. on 02/06/2024 at 21:32
--- NOTE | 2024-02-06 14:26 | PC.NURSE ---
Patient reports she took valium today and had flushing and itching related to the medication. Dr. Bullard made aware. Allergies updated.
[2024-02-06] MEDS: SODIUM CHLORIDE 0.9% 500 ML 1000 ML IV (14:35)
[2024-02-06] MEDS: MIDAZOLAM 2 MG/2 ML VIAL 1 MG IV (14:37)
[2024-02-06] MEDS: LIDOCAINE 1% 20 ML INJ (14:43)
[2024-02-06] MEDS: iopamidoL 15 ML VIAL 3 ML INJ (14:43)
[2024-02-06] MEDS: BUPIVACAINE 0.5% (PF) 10 ML VIAL 2 ML INJ (14:44)
--- NOTE | 2024-02-06 14:51 | P.PCN_ITS ---
Date/Time/Diagnoses Date of procedure: 02/06/24 Time of procedure: 14:51 Pre-procedure diagnosis: FACET ARTHROPATHY Post-procedure diagnosis: same Procedure Notes Procedure: 1. BILATERAL L2 and L3 DIAGNOSTIC MB BLOCKS Indications: Ying is referred by Dr. Lowry for treatment of Bilateral Axial LBP above previous fusion. Physician: Ab Bullard Total Fluoroscopy time (seconds): 8 Total sedation minutes: 10 Complications: none Procedure in detail & Post-procedure care: DESCRIPTION OF PROCEDURE Fluoroscopically guided, contrast-controlled bilateral L2, L3 medial branch blocks with 0.5cc of 0.5% Marcaine. Following review of allergy and review of potential side effects and complications, including, but not necessarily limited to, infection, allergic reaction, local tissue breakdown, nerve injury, paralysis, stroke and possible , the patient indicated that the patient understood and agreed to proceed. An informed consent document was signed by the patient, witnessed by a nurse, and placed in the patient's chart. After review of previous anaesthesic history and IV conscious sedation the patient was deemed safe to proceed with today's procedure with IV conscious sedation as ASA class II designation. Safety time-out was performed to confirm patient ID, procedure to be performed and site of procedure. IV sedation was accomplished with a combination of 1mg of Versed was administered by the RN after DO order, titrated to patient comfort during the course of the procedure while the patient remained responsive to all verbal commands In the prone position, following sterile prep and drape of the lumbar region, the right L2, L3 anatomical location of the medial branch of the dorsal ramus was identified fluoroscopically. Subsequently an anesthetic skin wheal using 1% lidocaine solution was initiated at each of the anatomical spots. Subsequently then a 22-gauge 3.5-inch spinal needle was atraumatically introduced and advanced under fluoroscopic guidance at each of the corresponding sites at the right L2, L3 MB. After negative aspiration, 0.2cc of Isovue 200 was injected, confirming placement without vascular or intrathecal uptake. Subsequently then 0.5cc of 0.5% Marcaine solution was injected at each of the corresponding sites at the right L2, L3 medial branch locations. The identical procedure was replicated on the left. The patient tolerated the procedure well without signs or symptoms of complications. The patient tolerated the procedure well without signs or symptoms of complications prior to transfer to the recovery area continued monitoring without incident. Post-procedure, the patient was monitored initiating provocative activities to measure the amount of relief from block of the facetogenic pain. The patient reported a VAS of 7 prior to the procedure and a post-procedure VAS of 1. It has been a pleasure to assist in the diagnostic and therapeutic care of your patient. POST OP INSTRUCTIONS The patient was provided with a Pain Log to complete over the next several hours and subsequent days prior to the patient's follow up with the ordering physician. If the patient has account resolution specialist relief to the solution applied, then they may be a candidate for medial branch rhizotomy. The patient is aware, was provided, once again, with a Pain Log and will follow up with the referring physician for review and clinical correlation
--- NOTE | 2024-02-06 15:09 | PC.NURSE ---
Patient stated on arrival that she had taken 20mg of diazepam at 1230 and that after 5-10 minutes of taking it she had a rash on her arms, chest and face and it was Pruritic. she also stated that she had a headache after taking it. Diazepam was added to the patient's allergy list.
--- NOTE | 2024-02-07 07:16 | PC.NURSE ---
late entry 1427- Patient in procedure room placed prone on table, b/p 95/57 p83. Timeout was performed with Dr Bullard, allergies confirmed, dose of oral diazepam with time taken and reaction to medication. At this time received verbal order for run 500ml NS IV bolus. Bolus started at 1435. Blood pressure also rechecked at 111/56 p 82. At that time patient was alert talking. Dr Bullard cleaned patients back and gave verbal order for 1mg IV Versed. At that time this RN reconfirmed allergies with patient and Dr Bullard with current reaction and current blood pressures. Patient states I am not nervous I just talk a lot and its ok to tell me to be quiet. Dr Bullard confirmed give 1mg IV Versed. 1mg IV Versed given per Dr Kaufman verbal order at 1437. See patients vitals during procedure. Procedure ended at 1447 and transferred to post procedure room.
== END 2024-02-06 15:19 | disposition home or self-care (01) ==
PROVIDERS: PCP Internal Medicine; Referring Provider Physical Medicine & Rehabilitation; Visit Provider Physical Medicine & Rehabilitation
DX: M47.816 Spondylosis without myelopathy or radiculopathy, lumbar region (principal)
CPT/HCPCS: 64493; 99152; J2250

== ENCOUNTER → 2024-05-03 16:33 | Outpatient (CLI) | payer MEDICARE, SELFPAY ==
[2023-04-13 12:48] VITALS: BMI 27.4
[2024-05-03 18:07] LABS: Magnesium 2.1 mg/dL (1.6-2.3)
[2024-05-03 18:42] LABS: Ferritin 12 ng/mL (11-264)
[2024-05-03 19:03] LABS: Iron 94 ug/dL (37-170)
[2024-05-03 19:19] LABS: Free T4, Direct Thyroxine 1.21 ng/dL (0.78-2.19)
[2024-05-03 20:09] LABS: Folate 11.3 ng/mL (2.76-20.0); Vitamin B12 371 pg/mL (239-931)
== END ==
LOC: LAB 16:34
PROVIDERS: PCP Family Medicine; Referring Provider Family Medicine; Visit Provider Family Medicine
DX: M62.838 Other muscle spasm (principal); D64.9 Anemia, unspecified; E03.9 Hypothyroidism, unspecified; R73.03 Prediabetes
CPT/HCPCS: 36415; 82607; 82728; 82746; 83540; 83735; 84439

== ENCOUNTER → 2024-06-24 11:22 | Outpatient (CLI) | payer MEDICARE, SELFPAY ==
[2023-04-13 12:48] VITALS: BMI 27.4
[2024-06-24 14:58] LABS: Add Manual Diff / Slide Review NO; Basophils Absolute Auto 100 /uL (0-100); Basophils Percent Auto 1.3 % (0-2); Eosinophils Absolute Auto 100 /uL (0-450); Hematocrit 36.5 % (36-46); Hemoglobin 12.4 g/dL (12.0-16.0); Lymphocytes Absolute Auto 1400 /uL (1100-4500); Lymphocytes Percent Auto 28.9 % (25-40); Mean Corpuscular HGB Conc 34.1 % (30-36); Mean Corpuscular Hemoglobin 34.2 PG (26-34); Mean Corpuscular Volume 100.4 fL (80-100); Monocytes Absolute Auto 500 /uL (0-900); Monocytes Percent Auto 10.7 % (3-14); Neutrophils Absolute Auto 2800 /uL (1500-7000); Neutrophils Percent Auto 57.1 % (50-75); Platelet Count 246 X10^3/uL (150-400); Red Blood Cell Count 3.64 X10^6/uL (4.0-5.2); Red Cell Distribution Width 13.9 % (11.6-14.8); White Blood Cell Count 4.9 X10^3/uL (4.5-11.0)
[2024-06-24 15:12] LABS: HEMOLYSIS < 15 (0-50); Iron 136 ug/dL (37-170)
[2024-06-24 15:15] LABS: Alanine Aminotransferase 14 IU/L (<35); Albumin 3.7 g/dL (3.5-5.0); Albumin Globulin Ratio 1.3 (1.0-2.8); Alkaline Phosphatase 72 U/L (38-126); Aspartate Aminotransferase 20 IU/L (14-36); Bilirubin Total 0.5 mg/dL (0.2-1.3); Blood Urea Nitrogen 14 mg/dL (7-17); Calcium 9.4 mg/dL (8.4-10.2); Carbon Dioxide 30 mmol/L (22-32); Chloride 107 mmol/L (98-107); Estimated Glomerular Filt Rate 58 mL/min (>60); Globulin 2.8 g/dL (1.7-4.1); Glucose 98 mg/dL (80-110); HEMOLYSIS < 15 (0-50); Potassium 3.8 mmol/L (3.4-5.1); Sodium 139 mmol/L (137-145); Total Protein 6.5 g/dL (6.3-8.2)
[2024-06-24 15:25] LABS: Percent Iron Saturation 39 % (15-50); Total Iron Binding Capacity 346 ug/dL (265-497); Transferrin 263 mg/dL (206-381)
[2024-06-24 15:46] LABS: TSH w/ Reflex to FT4 0.13 uIU/mL (0.47-4.68)
[2024-06-24 15:50] LABS: Ferritin 16 ng/mL (11-264)
[2024-06-24 16:20] LABS: Free T4, Direct Thyroxine 1.33 ng/dL (0.78-2.19)
[2024-06-27 22:15] LABS: Deamidated Gliadin Ab IgA 3 units (0-19); Deamidated Gliadin Ab IgG 2 units (0-19); Immunoglobulin A,Qn 82 mg/dL (64-422); t-Transglutaminase IgA <2 U/mL (0-3)
== END ==
PROVIDERS: PCP Family Medicine; Referring Provider Family Medicine; Visit Provider Family Medicine
DX: E03.9 Hypothyroidism, unspecified (principal); D64.9 Anemia, unspecified; E78.5 Hyperlipidemia, unspecified; R19.8 Other specified symptoms and signs involving the digestive system and abdomen; R14.0 Abdominal distension (gaseous); R73.03 Prediabetes; Z13.6 Encounter for screening for cardiovascular disorders
CPT/HCPCS: 36415; 80053; 82728; 82784; 83516; 83540; 83550; 84439; 84443; 85025

== ENCOUNTER 2024-07-09 15:10 | Outpatient (CLI) | payer MEDICARE, SELFPAY ==
[2023-04-13 12:48] VITALS: BMI 27.4
[2024-07-09] VITALS (8 sets, daily range): BP systolic 108–144; BP diastolic 71–84; PULSE 69–79; RESP 16–23; TEMP 36.3; O2SAT 94–100
--- NOTE | 2024-07-09 16:00 | DI.RAD.S_ITS ---
PROCEDURE: PAIN L/S FACET INJ/BLK 1ST WANDER INDICATIONS: Bilateral L2 and L3 medial branch block SA COMPARISON: [facility], , PAIN L/S FACET INJ/BLK 1ST WANDER, 02/06/2024, 14:36. FINDINGS: Fluoroscopic spot filming was performed to verify placement of spinal needles at the L2 and L3 level(s), as labeled on the films. Appropriate location(s) of the needle tip(s) was confirmed by injection of iodinated contrast. IMPRESSION: Fluoroscopic guidance utilized for a medial branch block. Dictated by: José Antonio Kapoor M.D. on 07/09/2024 at 20:58 Approved by: José Antonio Kapoor M.D. on 07/09/2024 at 20:59
[2024-07-09] MEDS: MIDAZOLAM 2 MG/2 ML VIAL IV (17:02)
[2024-07-09] MEDS: LIDOCAINE 2% INJ MDV 20ML 5 ML INJ (17:07)
[2024-07-09] MEDS: iopamidoL 15 ML VIAL 3 ML INJ (17:07)
--- NOTE | 2024-07-09 17:23 | P.PCN_ITS ---
Date/Time/Diagnoses Date of procedure: 07/09/24 Time of procedure: 17:23 Pre-procedure diagnosis: 1. FACET ARTHROPATHY Post-procedure diagnosis: same Procedure Notes Procedure: 1. BILATERAL L2, L3 DIAGNOSTIC MB BLOCKS Indications: Ying is referred by Dr. Cleary for treatment of Bilateral Axial LBP. Physician: Ab Bullard Total Fluoroscopy time (seconds): 10 Total sedation minutes: 10 Complications: none Procedure in detail & Post-procedure care: DESCRIPTION OF PROCEDURE Fluoroscopically guided, contrast-controlled bilateral L2, L3 medial branch blocks with 0.5cc of 2% Lidocaine. Following review of allergy and review of potential side effects and complications, including, but not necessarily limited to, infection, allergic reaction, local tissue breakdown, nerve injury, paralysis, stroke and possible , the patient indicated that the patient understood and agreed to proceed. An informed consent document was signed by the patient, witnessed by a nurse, and placed in the patient's chart. After review of previous anaesthesic history and IV conscious sedation the patient was deemed safe to proceed with today's procedure with IV conscious sedation as ASA class II designation. Safety time-out was performed to confirm patient ID, procedure to be performed and site of procedure. IV sedation was accomplished with a combination of 2mg of Versed was administered by the RN after DO order, titrated to patient comfort during the course of the procedure while the patient remained responsive to all verbal commands In the prone position, following sterile prep and drape of the lumbar region, the right L2, L3 anatomical location of the medial branch of the dorsal ramus was identified fluoroscopically. Subsequently an anesthetic skin wheal using 1% lidocaine solution was initiated at each of the anatomical spots. Subsequently then a 22-gauge 3.5-inch spinal needle was atraumatically introduced and advanced under fluoroscopic guidance at each of the corresponding sites at the right L2, L3 MB. After negative aspiration, 0.2cc of Isovue 200 was injected, confirming placement without vascular or intrathecal uptake. Subsequently then 0.5cc of 2% Lidocaine solution was injected at each of the corresponding sites at the right L2, L3 medial branch locations. The identical procedure was replicated on the left. The patient tolerated the procedure well without signs or symptoms of complications. The patient tolerated the procedure well without signs or symptoms of complications prior to transfer to the recovery area continued monitoring without incident. Post-procedure, the patient was monitored initiating provocative activities to measure the amount of relief from block of the facetogenic pain. The patient reported a VAS of 7 prior to the procedure and a post-procedure VAS of 1. It has been a pleasure to assist in the diagnostic and therapeutic care of your patient. POST OP INSTRUCTIONS The patient was provided with a Pain Log to complete over the next several hours and subsequent days prior to the patient's follow up with the ordering physician. 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 The patient is aware, was provided, once again, with a Pain Log and will follow up with the referring physician for review and clinical correlation
== END 2024-07-09 17:38 | disposition home or self-care (01) ==
LOC: RAD 15:10
PROVIDERS: PCP Family Medicine; Referring Provider Physical Medicine & Rehabilitation; Visit Provider Physical Medicine & Rehabilitation
DX: M47.816 Spondylosis without myelopathy or radiculopathy, lumbar region (principal)
CPT/HCPCS: 64493; 99152; J2250

== ENCOUNTER → 2024-07-24 14:31 | Outpatient (CLI) | payer MEDICARE, SELFPAY ==
[2023-04-13 12:48] VITALS: BMI 27.4
[2024-07-26 13:11] LABS: C difficie Toxins A and B, EIA Negative (Negative)
== END ==
PROVIDERS: PCP Family Medicine; Referring Provider Family Medicine; Visit Provider Family Medicine
DX: R19.8 Other specified symptoms and signs involving the digestive system and abdomen (principal); R14.0 Abdominal distension (gaseous); E03.9 Hypothyroidism, unspecified; R73.03 Prediabetes; E78.5 Hyperlipidemia, unspecified; D64.9 Anemia, unspecified; Z13.6 Encounter for screening for cardiovascular disorders
CPT/HCPCS: 87324; 87329

== ENCOUNTER → 2024-09-20 14:22 | Outpatient (CLI) | payer MEDICARE, SELFPAY ==
[2023-04-13 12:48] VITALS: BMI 27.4
--- NOTE | 2024-09-20 14:23 | DI.US.S_ITS ---
PROCEDURE: US ABDOMEN COMPLETE INDICATIONS: Change in BM, bloating TECHNIQUE: Real-time scanning was performed of the abdominal and retroperitoneal organs, with image documentation. COMPARISON: [facility], , US ABDOMEN COMPLETE, 02/16/2018, 10:07. FINDINGS: Liver: Liver is normal in size and homogeneous in echotexture. Gallbladder: Surgically absent Biliary ducts: Intrahepatic bile ducts are non-dilated. Extrahepatic bile duct caliber measures 13.8 mm, tapering to 4.4 mm at the level of the common hepatic duct. This is a chronic finding. Normal is 6-7 mm or less in diameter, or 10 mm or less post-cholecystectomy. Pancreas: Mildly dilated pancreatic duct measuring 3.7 mm. Visualized portions of the pancreas are otherwise sonographically normal. Spleen: Spleen is normal in size and homogeneous in echotexture. Kidneys: Kidneys are normal in size and echotexture. Right kidney measures 9.0 cm long; left kidney measures 9.5 cm long. No hydronephrosis or nephrolithiasis. No solid masses. Aorta: Visualized aorta is normal in caliber, 2.2 cm or less. Iliacs: Proximal common iliac arteries are normal in caliber at 1.1 cm bilaterally. IVC: Intrahepatic inferior vena cava is patent. Miscellaneous: No free abdominal fluid. IMPRESSION: Unchanged findings. Remote cholecystectomy. Chronic biliary ductal dilatation post cholecystectomy. Dictated by: Pedrito Cornejo M.D. on 09/22/2024 at 7:51 Approved by: Pedrito Cornejo M.D. on 09/22/2024 at 7:54
--- NOTE | 2024-09-20 14:23 | DI.MG.S_ITS ---
BILATERAL DIGITAL SCREENING MAMMOGRAM 3D/2D WITH CAD WITH AUGMENTATION: 09/20/2024 CLINICAL: Routine screening. Family history of breast cancer. Comparison is made to exams dated: 06/29/2022 mammogram - [facility], 01/23/2020 mammogram - [facility], and 01/04/2018 mammogram - [facility]. There are scattered areas of fibroglandular density (category b / 25%-50% glandular tissue). Current study was also evaluated with a Computer Aided Detection (CAD) system. Bilateral breast implants are stable and intact. No significant masses, calcifications, or other findings are seen in either breast. There has been no significant interval change. IMPRESSION: NEGATIVE There is no mammographic evidence of malignancy. A 1 year screening mammogram is recommended. Based on the Tyrer Cuzick model (a risk assessment model) the patient's lifetime risk is 4.6% and her 10 year risk is 0.0%. According to the ACR, ACS, and NCCN guidelines, an annual breast MRI exam along with mammogram is recommended if the patient's lifetime risk is 20% or greater. This exam was interpreted at Station ID: [id number]. NOTE: For mammograms, a report in lay terms will be sent to the patient. Approximately 15% of breast malignancies will not be visualized mammographically. In the management of a palpable breast mass, a negative mammogram must not discourage biopsy of a clinically suspicious lesion. Electronically Signed By: Trey [email or web address]/masha:09/20/2024 15:31:40 letter sent: Normal Exam ACR BI-RADS Category 1: Negative
== END ==
PROVIDERS: PCP Family Medicine; Referring Provider Family Medicine; Visit Provider Family Medicine
DX: Z12.31 Encounter for screening mammogram for malignant neoplasm of breast (principal); Z80.3 Family history of malignant neoplasm of breast; K83.8 Other specified diseases of biliary tract; K86.89 Other specified diseases of pancreas; R19.8 Other specified symptoms and signs involving the digestive system and abdomen; R14.0 Abdominal distension (gaseous); Z90.49 Acquired absence of other specified parts of digestive tract
CPT/HCPCS: 76700; 77063; 77067

== ENCOUNTER 2024-09-24 10:24 | Outpatient (CLI) | payer MEDICARE, SELFPAY ==
[2023-04-13 12:48] VITALS: BMI 27.4
[2024-09-24] VITALS (12 sets, daily range): BP systolic 107–122; BP diastolic 70–93; PULSE 50–70; RESP 16–19; TEMP 35.8; O2SAT 95–100
--- NOTE | 2024-09-24 10:25 | DI.RAD.S_ITS ---
PROCEDURE: PAIN L/S MED/LAT N RFA BILAT INDICATIONS: Bilateral L2 and L3 MB RFA COMPARISON: None. FINDINGS/IMPRESSION: Fluoroscopic spot filming was performed to verify placement of spinal needles at the L2-3 level(s), as labeled on the films. Appropriate location(s) of the needle tip(s) was confirmed by injection of iodinated contrast. Dictated by: Veronica Elder M.D. on 09/25/2024 at 22:44 Approved by: Veronica Elder M.D. on 09/25/2024 at 22:44
[2024-09-24] MEDS: MIDAZOLAM 2 MG/2 ML VIAL IV ×2 (11:57→12:03)
[2024-09-24] MEDS: BUPIVACAINE 0.5% (PF) 10 ML VIAL 5 ML INJ (11:59)
[2024-09-24] MEDS: LIDOCAINE 1% 20 ML 5 ML INJ (12:00)
--- NOTE | 2024-09-24 12:41 | P.PCN_ITS ---
Date/Time/Diagnoses Date of procedure: 09/24/24 Time of procedure: 12:41 Pre-procedure diagnosis: 1. RECALCITRANT FACET ARTHROPATHY Post-procedure diagnosis: same Procedure Notes Procedure: 1. BILATERAL L2, L3 MEDIAL BRANCH RADIOFREQUENCY NEUROTOMY Indications: Ying is referred by Dr. Cleary for treatment of facet arthropathy. Physician: Ab Bullard Total Fluoroscopy time (seconds): 19 Total sedation minutes: 39 Complications: none Procedure in detail & Post-procedure care: DESCRIPTION OF PROCEDURE Bilateral L2, L3 medial branch radiofrequency neurotomy The patient is well known to this clinic having undergone previous facet injections with good but temporary relief. The patient has experienced appropriate, concordant relief with previous facet and median branch blocks but the patient's pain has been recalcitrant to further conservative measures. Therefore, based upon the patient's relief and persistent symptoms, the patient is considered an appropriate candidate for facet rhizotomy. All of the patient's questions regarding the risks versus benefits of the procedure, including, but not limited to, bleeding, infection, temporary as well as lasting nerve injury, paralysis, stroke, and , as well treatment alternatives were answered to satisfaction. After obtaining informed consent, denial of pertinent drug allergies, as well as being made aware of the potential risks of bleeding, infection, spinal cord trauma, paralysis, temporary and permanent nerve damage, seizure, stroke, and possible , the patient was brought to the fluoroscopy suite and positioned prone on the fluoroscopy table. After review of previous anaesthesic history and IV conscious sedation the patient was deemed safe to proceed with today's procedure with IV conscious sedation as ASA class II designation. Safety time-out was performed to confirm patient ID, procedure to be performed and site of procedure. IV sedation was accomplished with a combination of 4mg of Versed administered by the RN after DO order, titrated to patient comfort during the course of the procedure while the patient remained responsive to all verbal commands. The lumbar region was prepped in usual sterile fashion and covered with a fenestrated drape in the usual sterile fashion. Appropriate monitors applied including pulse oximeter, pulse, and blood pressure for regular monitoring throughout the procedure. After local infiltration using 1% lidocaine, under fluoroscopic guidance, a 10- cm RF insulated needle with a 10-mm active tip was positioned parallel to the junction of the right the superior articulating process where the L2 medial branch resides. Needle placement was confirmed with motor stimulation of .5v on the right which produced local stimulation without radicular component. The stimulation was then increased to 2v with, once again, only local multifidus stimulation without radicular component. The needle was then removed and the identical procedure was performed along the length of the right L3 medial branch with motor stimulation at .7v on the right. The medial branches were then anesthetised with 0.5% marcaine. This was then followed by two discreet lesions performed at 80 degrees Celsius for 90 seconds each. The identical procedures were repeated on the left. The patient tolerated the procedure well without signs or symptoms of complications prior to transfer to the recovery area continued monitoring without incident. The patient was then transferred to the recovery area where they were observed for an appropriate period of time after the injection. The patient reported a VAS score of 9 prior to the procedure and a post-procedure VAS of 2. POST OP INSTRUCTIONS The patient was provided a Pain Log to continue to record the patient's response to the target-specific procedure prior to the patient's follow-up visit with the referring physician. Additionally, specific post-injection care instructions and a contact number to our office were provided if concerns arise regarding possible complications associated with the procedure are suspected.
== END 2024-09-24 12:48 | disposition home or self-care (01) ==
PROVIDERS: PCP Family Medicine; Referring Provider Physical Medicine & Rehabilitation; Visit Provider Physical Medicine & Rehabilitation
DX: M47.816 Spondylosis without myelopathy or radiculopathy, lumbar region (principal)
CPT/HCPCS: 64635; 64636; 99152; 99153; J2250

== ENCOUNTER → 2024-11-14 08:31 | Outpatient (CLI) | payer MEDICARE, SELFPAY ==
[2024-10-04 16:12] VITALS: BMI 27.4
--- NOTE | 2024-11-14 08:32 | DI.RAD.S_ITS ---
PROCEDURE: XR CHEST 2V INDICATIONS: Cough TECHNIQUE: 2 views of the chest were acquired. COMPARISON: [facility], CR, XR CHEST 2V, 12/16/2020, 13:35. FINDINGS: Surgical changes and devices: Cervical spine fixation hardware. Lungs and pleura: Lungs are clear. No pleural effusions or pneumothorax. Mediastinum: Mediastinal contours are normal. Heart size is normal. Bones and chest wall: No suspicious bony abnormalities. Soft tissues appear unremarkable. IMPRESSION: No acute cardiopulmonary abnormality is seen. Dictated by: Sakina Byrne MD, PhD on 11/14/2024 at 9:24 Approved by: Sakina Byrne MD, PhD on 11/14/2024 at 9:24
== END ==
PROVIDERS: PCP Family Medicine; Referring Provider Family Medicine; Visit Provider Family Medicine
DX: R05.9 Cough, unspecified (principal); Z98.1 Arthrodesis status
CPT/HCPCS: 71046

== ENCOUNTER → 2025-06-09 17:00 | Outpatient (CLI) | payer MEDICARE, SELFPAY ==
[2024-10-04 16:12] VITALS: BMI 27.4
--- NOTE | 2025-06-09 17:03 | DI.RAD.S_ITS ---
PROCEDURE: XR CERVICAL SPINE 4V OR 5V INDICATIONS: NECK PAIN TECHNIQUE: 5 views of the cervical spine acquired. COMPARISON: [facility], CR, XR CERVICAL SPINE 4V OR 5V, 07/03/2023, 12:45. FINDINGS: Bones: There is loss of cervical lordosis. There is no significant spondylolisthesis. Stable appearance of ACDF at C4-C6, with fusion of the intervertebral disc spaces at this level. The hardware is intact, no new lucency. Stable appearance of degenerative disc disease at C3-C4 as well as C6-C7. There is also uncinate process and facet arthropathy with moderate bilateral foraminal narrowing at C4-C6 as well as at C3-C4. Soft tissues: No prevertebral soft tissue swelling. IMPRESSION: Stable appearance of postoperative and degenerative changes, no new focal osseous lesion seen. Dictated by: Ashish Smith M.D. on 06/09/2025 at 19:01 Approved by: Ashish Smith M.D. on 06/09/2025 at 19:04
== END ==
LOC: RAD 17:02
PROVIDERS: PCP Family Medicine; Referring Provider Physical Medicine & Rehabilitation; Visit Provider Physical Medicine & Rehabilitation
DX: M50.31 Other cervical disc degeneration, high cervical region (principal); M47.812 Spondylosis without myelopathy or radiculopathy, cervical region; M48.02 Spinal stenosis, cervical region; Z98.1 Arthrodesis status
CPT/HCPCS: 72050

== ENCOUNTER → 2025-06-13 12:31 | Outpatient (CLI) | payer MEDICARE, SELFPAY ==
[2024-10-04 16:12] VITALS: BMI 27.4
--- NOTE | 2025-06-13 12:33 | DI.CT.S_ITS ---
PROCEDURE: CT ABDOMEN PELVIS WO CON INDICATIONS: Stomach pain TECHNIQUE: CT of the abdomen and pelvis was obtained without intravenous contrast. Coronal and sagittal reformats were performed. For radiation dose reduction, the following was used: automated exposure control, adjustment of mA and/or kV according to patient size. COMPARISON: None. FINDINGS: Image quality: Diagnostic, but quality of anatomic visualization is limited by the absence of both oral and intravenous contrast. Lower Chest: No significant findings. ABDOMEN: Liver: No contour-deforming mass. Gallbladder: Prior cholecystectomy. Biliary ducts: No biliary dilation. Pancreas: No ductal dilation. Spleen: Size is within normal limits. Adrenal Glands: No adrenal nodules. Kidneys and Ureters: No hydronephrosis. No contour-deforming mass. Stomach and Bowel: Normal colonic caliber, without significant wall thickening. Apparent gastric reduction surgery/gastric bypass. Peritoneum: No abnormal intraperitoneal fluid. No free air. Ventral Wall: No significant hernia. Abdominal Nodes: No retroperitoneal or mesenteric adenopathy by size criteria. Vessels: Aorta and inferior vena cava are normal in size. PELVIS: Pelvic Organs: Unremarkable. Bladder: Unremarkable. Pelvic Nodes: No enlarged lymph nodes. Miscellaneous: No inguinal hernias are seen. Bones: No aggressive osseous abnormality. IMPRESSION: No acute disease. Prior cholecystectomy. Normal postoperative appearance. Prior gastric reduction surgery and/or gastric bypass procedure. Dictated by: Constantino Addison M.D. on 06/13/2025 at 16:30 Approved by: Constantino Addison M.D. on 06/13/2025 at 16:32
[2025-06-13 13:31] LABS: Add Manual Diff / Slide Review NO; Hematocrit 40.6 % (36-46); Hemoglobin 13.7 g/dL (12.0-16.0); Lymphocytes Absolute Auto 1600 /uL (1100-4500); Mean Corpuscular HGB Conc 33.7 % (30-36); Mean Corpuscular Hemoglobin 33.6 PG (26-34); Mean Corpuscular Volume 99.6 fL (80-100); Platelet Count 249 X10^3/uL (150-400)
[2025-06-13 13:52] LABS: Alanine Aminotransferase 14 IU/L (<35); Albumin 4.3 g/dL (3.5-5.0); Albumin Globulin Ratio 1.8 (1.0-2.8); Alkaline Phosphatase 77 U/L (38-126); Blood Urea Nitrogen 21 mg/dL (7-17); Calcium 9.7 mg/dL (8.4-10.2); Carbon Dioxide 26 mmol/L (22-32); Chloride 107 mmol/L (98-107); Cholesterol 177 mg/dL (140-199); Estimated Glomerular Filt Rate 54 mL/min (>60); Globulin 2.4 g/dL (1.7-4.1); Glucose 89 mg/dL (70-99); HDL Cholesterol 67 mg/dL (40-60); HEMOLYSIS < 15 (0-50); Potassium 4.3 mmol/L (3.4-5.1); Sodium 139 mmol/L (137-145); Total Protein 6.7 g/dL (6.3-8.2); Triglycerides 74 mg/dL (35-150)
[2025-06-13 14:23] LABS: TSH w/ Reflex to FT4 < 0.02 uIU/mL (0.47-4.68)
[2025-06-13 14:24] LABS: Vitamin D 25 Hydroxy (D3) 32.6 ng/mL (30.0-100.0)
[2025-06-13 14:27] LABS: Ferritin 65 ng/mL (11-264)
[2025-06-13 14:59] LABS: Folate 5.8 ng/mL (2.76-20.0); Vitamin B12 467 pg/mL (239-931)
[2025-06-13 15:23] LABS: Free T4, Direct Thyroxine 2.75 ng/dL (0.78-2.19)
== END ==
LOC: CT 12:31
PROVIDERS: PCP Family Medicine; Referring Provider Family Medicine; Visit Provider Family Medicine
DX: R10.9 Unspecified abdominal pain (principal); E78.5 Hyperlipidemia, unspecified; R73.03 Prediabetes; D64.9 Anemia, unspecified; R53.83 Other fatigue; R53.82 Chronic fatigue, unspecified; Z86.39 Personal history of other endocrine, nutritional and metabolic disease; Z90.49 Acquired absence of other specified parts of digestive tract
CPT/HCPCS: 36415; 74176; 80053; 80061; 82306; 82607; 82728; 82746; 84439; 84443; 85025

== ENCOUNTER → 2025-08-19 19:38 | Outpatient (CLI) | payer MEDICARE, SELFPAY ==
[2024-10-04 16:12] VITALS: BMI 27.4
--- NOTE | 2025-08-19 19:40 | DI.MRI.S_ITS ---
PROCEDURE: MR CERVICAL SPINE WO CON INDICATIONS: Cervical Radic s/p ACDF TECHNIQUE: Noncontrast sagittal T1 spin echo and T2 fast spin echo, sagittal STIR, foraminal oblique sagittal T2 fast spin echo, and axial gradient echo or T2 fast spin echo through the cervical spine. COMPARISON: [facility], CT, CT CERVICAL SPINE WO CON, 07/14/2020, 15:43. FINDINGS: Image quality: Diagnostic Post-surgical changes: Changes of C4 through 6 ACDF with osseous fusion across the intervertebral disc spaces. Metallic susceptibility artifact from the anterior fusion plate. Alignment and Curvature: Mild, grade 1, 3 mm, anterolisthesis of C7 on T1. Bone Marrow: Marrow demonstrates normal overall signal. Osseous fusion across the C3-4 anterior vertebral bodies. Osseous fusion of the right C2-3 facet joints. Spinal Cord: Visualized spinal cord has normal size and signal. No cerebellar tonsillar herniation. Paraspinous Soft Tissues: No paravertebral masses. Prevertebral soft tissues are normal in thickness. C2-C3: Mildly desiccated disc. No spinal canal stenosis. Right mild neural foraminal stenosis due to uncovertebral and facet arthrosis. C3-C4: Fused level anteriorly. Mild spinal canal stenosis due to small posterior osteophytosis. Severe right neural foraminal stenosis due to osseous fusion across the uncovertebral joints. Moderate left neural foraminal stenosis due to uncovertebral and facet arthrosis C4-C5: Instrumented level. Moderate spinal canal stenosis due to bridging ossification along the posterior longitudinal ligament which effaces the anterior CSF clear space of the thecal sac. Severe bilateral, right greater than left, neural foraminal stenosis due to osseous fusion across the uncovertebral joints and prior facet arthrosis. C5-C6: Instrumented level. Mild spinal canal stenosis due to ossification along the posterior longitudinal ligament. Severe bilateral neural foraminal stenosis due to osseous fusion across the uncovertebral joints and prior facet arthrosis. C6-C7: Junctional level. Moderate to severe spinal canal stenosis due to degenerated disc osteophyte complex, ligamentum flavum thickening, and uncovertebral predominant arthrosis. Severe bilateral neural foraminal stenosis due to uncovertebral greater than facet arthrosis. C7-T1: Mild spinal canal stenosis due to degenerated disc osteophyte complex, anterolisthesis disc uncovering, ligamentum flavum thickening, uncovertebral and facet arthrosis. Severe bilateral neural foraminal stenosis due to uncovertebral and facet arthrosis with anterolisthesis. IMPRESSION: 1. 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 2. Multilevel spinal canal stenosis reaches moderate to severe at the junctional C6-7 level. 3. Multilevel neural foraminal stenosis is severe bilaterally from C4-C6 due to osseous fusion effacing the neural foramina. Additional severe neural foraminal stenosis at the junctional C6-7 level and the cervicothoracic junction. 4. Osseous fusion at the junctional C3-4 level due to bridging anterior osteophytes. Dictated by: Josué Ramirez M.D. on 08/20/2025 at 8:33 Approved by: Josué Ramirez M.D. on 08/20/2025 at 8:43
== END ==
LOC: MRI 19:39
PROVIDERS: PCP Family Medicine; Referring Provider Physical Medicine & Rehabilitation; Visit Provider Physical Medicine & Rehabilitation
DX: M54.12 Radiculopathy, cervical region (principal); M48.02 Spinal stenosis, cervical region; Z98.1 Arthrodesis status
CPT/HCPCS: 72141